=== PATIENT | female | born 1955 | race Caucasian/White ===

== ENCOUNTER 2021-09-15 15:41 | Emergency (ER) | payer MEDICARE, SELFPAY ==
[2021-09-15 15:56] VITALS: BP 143/90; PULSE 101; RESP 16; TEMP 35.9; O2SAT 97
--- NOTE | 2021-09-15 15:58 | ED.ANIMALBIT ---
HPI - Animal Bite General Chief Complaint: Animal Bite Stated Complaint: dog bite on hand and foot Time Seen by Provider: 09/15/21 15:55 Source: patient Mode of arrival: ambulatory Limitations: no limitations History of Present Illness HPI narrative: Ms. Herrera is a 66-year-old female patient presenting to the clinic today with complaints of a dog bite to her left foot and her right middle finger. She reports that her dog began having a seizure and bit down on her foot leaving 3 puncture wounds to the dorsal foot as well as a flap laceration to the volar mid third phalanx. Bleeding is controlled. This occurred approximately 2 PM this afternoon. She is up-to-date on her tetanus. Her dog is up-to-date on his immunizations. Related Data Allergies Allergy/AdvReac Type Severity Reaction Status Date / Time No Known Allergies Allergy Unknown Unverified 11/29/17 18:54 Review of Systems Review of Systems: Pertinent positives per HPI. Patient denies any fever, chills, rash, headache, visual changes, dizziness, cough, runny nose, sore throat, shortness of breath, chest pain, palpitations, nausea, vomiting, diarrhea, constipation, abdominal pain, or any urinary issues. PMFSH Comments At the time of my signature, I reviewed and agree with the nursing past medical, surgical, social, and family history. There is no relevant family history pertinent to the patient complaint. Exam Narrative: General: Well-developed, well nourished, in no apparent distress Head: Normocephalic, atraumatic. Cardio: Regular rate and rhythm, s1 and s2 normal, no murmur appreciated. Resp: Clear to auscultation bilaterally, no rhonchi, rales, wheezing or rubs. Integumentary: [place], warm, and dry, has 3 small puncture wounds to the dorsal left foot with the largest measuring approximately fourth of a centimeter. Has a flap laceration measuring 1.5 cm to the right fourth volar mid phalanx and a small puncture wound to the dorsal fourth mid phalanx Course Course Emergency Course: Portions of this record may have been created with voice recognition software. Level of Care: Express Care Visit Vital Signs Vital signs: Vital Signs Temperature 35.9 C L 09/15/21 15:56 Pulse Rate 101 H 09/15/21 15:56 Respiratory Rate 16 09/15/21 15:56 Blood Pressure 143/90 H 09/15/21 15:56 Pulse Oximetry 97 09/15/21 15:56 Temperature 35.9 C L 09/15/21 15:56 Pulse Rate 101 H 09/15/21 15:56 Respiratory Rate 16 09/15/21 15:56 Blood Pressure 143/90 H 09/15/21 15:56 Pulse Oximetry 97 09/15/21 15:56 Vital signs reviewed Procedures Laceration Laceration 1: Date: 09/15/21 Site: hand (Right fourth finger-mid phalanx) Side (If applicable): right Size (cm): 1.5 Description: flap Depth: simple, single layer Local Anesthetic: lidocaine 1% Amount of anesthesia used (mL): 0.5 Pre-repair: wound explored and irrigated ====== Skin Level ====== Skin layer closed with: nylon Size (cm): 4-0 Number of sutures: 1 Technique: simple, interrupted ====== Subcutaneous Layer ====== ====== Muscle Layer ====== ====== Tendon Layer ====== Dressing: Verbal consent obtained for laceration repair. Risk and benefits explained and patient voiced understanding. Area was cleansed with Dermaclens and was prepped and draped using sterile technique. A 4-0 suture on a p3 needle was used to place (1) interrupted sutures loosely bringing the wound edges together leaving area to drain -wound is well approximated. Patient tolerated procedure well. Sterile dressing applied. MDM - Animal Bite MDM Narrative Medical decision making narrative: At the time of visit patient is resting comfortably on the exam table. She has 3 small puncture wounds to the dorsal left foot as well as a flap laceration to the volar fourth finger with a puncture wound to the dorsal fourth finger mid ph
== END 2021-09-15 16:30 | disposition home or self-care (01) ==
PROVIDERS: Emergency Provider Nurse Practitioner Family
DX: S91.332A Puncture wound without foreign body, left foot, initial encounter (principal); S61.214A Laceration without foreign body of right ring finger without damage to nail, initial encounter; S61.234A Puncture wound without foreign body of right ring finger without damage to nail, initial encounter; W54.0XXA Bitten by dog, initial encounter
CPT/HCPCS: 12001; 99203; G0463

== ENCOUNTER 2024-06-21 08:37 | Outpatient (CLI) | payer MEDICARE, MEDICAID, SELFPAY ==
--- NOTE | ~2024-06-21 | MR_ITS ---
EXAMINATION: MR breast BI wo/w con INDICATION: Left breast lump, galactorrhea TECHNIQUE: Axial VIBRANT pre and dynamic post contrast, Sagittal VIBRANT post contrast, Axial T2 STIR ASSET COMPARISON: None CONTRAST: Prohance, 13 cc BREAST COMPOSITION: Heterogeneous fibroglandular tissue FINDINGS: RIGHT BREAST: There is moderate background parenchymal enhancement. There is extensive nonmass-like e nhancement corresponding to relatively morphologically normal fibroglandular tissue in the central ri ght breast. There is a mix of kinetic waveforms. No pathologically enlarged axillary or internal mamm mak lymph nodes are identified. LEFT BREAST: There is moderate background parenchymal enhancement. There is a 7.0 x 4.6 x 5.5 cm comp alyse mass in the central to slightly outer left breast, with 2 large cystic components a central irreg ular avidly enhancing mass. The enhancing irregular central masslike component measures approximately 3.2 x 2.0 x 2.3 cm. This portion is surrounded by anterior and posterior cystic components, which ar e both T1 and T2 hyperintense, which could indicate hemorrhagic or proteinaceous material. There is p robable contiguous extension of the mass beyond the margins of the cystic lesion into the superior le ft breast, with additional areas of somewhat bilobed irregular masslike enhancement measuring approxi mately 3.8 x 2.6 cm posterolaterally, and 3.0 x 2.3 cm more anteromedially/centrally (series 3 image 822 for example). No pathologically enlarged axillary or internal mammary lymph nodes are identified. IMPRESSION: Irregular enhancing mass in the central, slightly upper, slightly outer left breast measuring approx imately 3.2 x 2.0 x 2.3 cm. This is highly suspicious for malignancy. The lesion is surrounded by stevenson ewhat bilobed complex cystic lesion which is both T1 and T2 hyperintense, which could reflect hemorrh agic products or proteinaceous material. Probable direct extension of the aforementioned irregular enhancing mass into the superior left breas t, with additional irregular masslike enhancing areas measuring 3.8 x 2.6 cm and 3.0 x 2.3 cm in size respectively. These regions are also suspicious for additional neoplastic involvement. Please see de tails above. Suspicious enhancement kinetics centrally in the right breast. This is suspicious, despite relatively normal morphologic appearance of the fibroglandular tissue in this region. Bilateral diagnostic mammography and sonography is recommended to further assess both the morphologic findings, as well as to assess for bilateral biopsy targeting. BIRADS 5--Highly Suggestive of Malignancy--Appropriate Action Should be Taken Reviewed, dictated and finalized at location M. IMPRESSION: Irregular enhancing mass in the central, slightly upper, slightly outer left b reast measuring approximately 3.2 x 2.0 x 2.3 cm. This is highly suspicious for malignancy. The lesion is surrounded by somewhat bilobed complex cystic lesion which is both T1 and T2 hyperintense, which could reflect hemorrhagic products or proteinaceous material. Probable direct extension of the aforementioned irregular enhancing mass into t he superior left breast, with additional irregular masslike enhancing areas royer suring 3.8 x 2.6 cm and 3.0 x 2.3 cm in size respectively. These regions are al so suspicious for additional neoplastic involvement. Please see details above. Suspicious enhancement kinetics centrally in the right breast. This is suspicio us, despite relatively normal morphologic appearance of the fibroglandular tiss ue in this region. Bilateral diagnostic mammography and sonography is recommended to further asses s both the morphologic findings, as well as to assess for bilateral biopsy targ eting. BIRADS 5--Highly Suggestive of Malignancy--Appropriate Action Should be Taken
--- OUTSIDE RECORDS SUMMARY | 2024-06-21 09:17 | XMS_ITS | Referral Summary ---
Author Organization [facility] Address [address] [place] [address] Care Team Providers Care Loan Assistant Name Role Phone Raffi Jean MD Primary Care Provider [phone] Source Comments [facility],non-owned Affiliates and Associated Physician Practices is amultiple site organization consisting of ambulatory clinics and hospital sitesin [place], [place], [place] and [place]. This disclosure is being madepursuant to the Care Everywhere program and may not contain all information available regarding this patient. Last updated 17.[facility] Allergies No known active allergies Medications * Be aware that medications may not be up to date on this document. Alwaysverify current medications with the patient. Medication Sig Dispensed Refills Start Date End Date Status albuterol HFA (PROAIR HFA) 108 (90 BASE) MCG/ACT inhaler Inhale 2 Puffs by mouth every 4 hours as needed for Shortness of Breath, Wheezing or Cough 1 Inhaler 1 02/16/2016 Active ofzqhxrdo-yna-ew-ap ap (ROBITUSSIN FLU) 15-1-5-160 MG/5ML syrup Take 10 mL by mouth every 6 hours as needed for Congestion or Runny Nose 118 mL 02/16/2016 Active Social History Tobacco Use Types Packs/Day Years Used Date Smoking Tobacco: Every Day Cigarettes Sex and Gender Information Value Date Recorded Sex Assigned at Not on file Gender Identity Not on file Sexual Orientation Not on file Last Filed Vital Signs Vital Sign Reading Time Taken Comments Blood Pressure 110/66 02/16/2016 12:54 PM FLOOR SPECIALIST Pulse 84 02/16/2016 12:54 PM FLOOR SPECIALIST Temperature 36.7 C (98.1 F) 02/16/2016 12:54 PM FLOOR SPECIALIST Respiratory Rate 18 02/16/2016 12:54 PM FLOOR SPECIALIST Oxygen Saturation 97% 02/16/2016 12:54 PM FLOOR SPECIALIST Inhaled Oxygen Concentration - - Weight 56.7 kg (125 lb) 02/16/2016 12:54 PM FLOOR SPECIALIST Height 148.6 cm (4' 10.5 ) 02/16/2016 12:54 PM Carlos FORDE Body Mass Index 25.68 02/16/2016 12:54 PM FLOOR SPECIALIST Plan of Treatment Not on file Goals Goal Patient Goal Type Associated Problems Recent Progress Patient-Stated? Author Quit smoking / using tobacco Lifestyle No Bárbara Lo APRN-MITCH Care Teams Loan Assistant Relationship Specialty Start Date End Date Raffi Jean [place] [address] PCP - General Family Medicine 02/01/16
--- OUTSIDE RECORDS SUMMARY | 2024-06-21 09:17 | XMS_ITS | Patient Health Summary ---
Author Organization [facility] Address [address] [place] [address] Care Team Providers Care Airplane Dispatch Clerk Name Role Phone Raffi Jean MD Primary Care Provider [phone] Note from [facility],non-owned Affiliates and Associated Physician Practices is amultiple site organization consisting of ambulatory clinics and hospital sitesin [place] and [place]. This disclosure is being madepursuant to the Care Everywhere program and may not contain all information available regarding this patient. Last updated 17.[facility] Allergies No known active allergies Medications * Be aware that medications may not be up to date on this document. Alwaysverify current medications with the patient. * albuterol HFA (PROAIR HFA) 108 (90 BASE) MCG/ACT inhaler(Started 02/16/2016) Inhale 2 Puffs by mouth every 4 hours as needed for Shortness of Breath, Wheezing or Cough 1 refill remaining * wrunzelua-mir-hv-apap (ROBITUSSIN FLU) 15-1-5-160 MG/5ML syrup(Started 02/16/2016) Take 10 mL by mouth every 6 hours as needed for Congestion or Runny Nose Social History Tobacco Use Types Packs/Day Years Used Date Smoking Tobacco: Every Day Cigarettes Sex and Gender Information Value Date Recorded Sex Assigned at Not on file Gender Identity Not on file Sexual Orientation Not on file Last Filed Vital Signs Vital Sign Reading Time Taken Comments Blood Pressure 110/66 02/16/2016 12:54 PM REEL TENDER Pulse 84 02/16/2016 12:54 PM REEL TENDER Temperature 36.7 C (98.1 F) 02/16/2016 12:54 PM REEL TENDER Respiratory Rate 18 02/16/2016 12:54 PM REEL TENDER Oxygen Saturation 97% 02/16/2016 12:54 PM REEL TENDER Inhaled Oxygen Concentration - - Weight 56.7 kg (125 lb) 02/16/2016 12:54 PM REEL TENDER Height 148.6 cm (4' 10.5 ) 02/16/2016 12:54 PM Carlos FORDE Body Mass Index 25.68 02/16/2016 12:54 PM REEL TENDER Care Teams Airplane Dispatch Clerk Relationship Specialty Start Date End Date Raffi Jean MD [address] [place] [address] PCP - General Family Medicine 02/01/16
--- OUTSIDE RECORDS SUMMARY | 2024-06-21 09:17 | XMS_ITS | Clinical Summary ---
Author Organization [facility] Address [address] [place] [address] Care Team Providers Care Senior Telecommunications Consultant Name Role Phone Raffi Jean MD Primary Care Provider [phone] Source Comments [facility],non-owned Affiliates and Associated Physician Practices is amultiple site organization consisting of ambulatory clinics and hospital sitesin [place], [place], [place] and [place]. This disclosure is being madepursuant to the Care Everywhere program and may not contain all information available regarding this patient. Last updated 17.[facility] Allergies No known active allergies Medications * [...] or Cough 1 Inhaler 1 02/16/2016 Active kwnujwmvy-vfd-qf-ap ap (ROBITUSSIN FLU) 15-1-5-160 MG/5ML syrup Take [...] Comments Blood Pressure 110/66 02/16/2016 12:54 PM SERVICE WRITER ADVISOR Pulse 84 02/16/2016 12:54 PM SERVICE WRITER ADVISOR Temperature 36.7 C (98.1 F) 02/16/2016 12:54 PM SERVICE WRITER ADVISOR Respiratory Rate 18 02/16/2016 12:54 PM SERVICE WRITER ADVISOR Oxygen Saturation 97% 02/16/2016 12:54 PM SERVICE WRITER ADVISOR Inhaled Oxygen Concentration - - Weight 56.7 kg (125 lb) 02/16/2016 12:54 PM SERVICE WRITER ADVISOR Height 148.6 cm (4' 10.5 ) 02/16/2016 12:54 PM C Body Mass Index 25.68 02/16/2016 12:54 PM SERVICE WRITER ADVISOR Plan of Treatment Health Maintenance Due Date Last Done Comments BONE DENSITY TESTING 1955 COLOGUARD (AGES 45-75) - COL ON CA SCREENING 1956 COLON MONITORING 1956 COLONOSCOPY - COLON CA SCREENING 1956 CT COLONOGRAPHY - COLON CA SCREENING 1956 Colorectal Cancer Screening 1956 FIT - COLON CA SCREENING 1956 FLEX SIG - COLON CA SCREENING 1956 LIPID TESTING 1956 MAMMOGRAM 1956 HEPATITIS C SCREENING 02/10/1974 DTAP/TDAP/TD VACCINES (1 - Tdap) 02/14/1975 PNEUMOCOCCAL VACCINE 50+ (1 of 1 - PCV) 02/14/2006 ZOSTER VACCINE (1 of 2) 02/14/2006 COVID-19 VACCINE ( - 2023-2 5 season) 2023 INFLUENZA VACCINE (#1) 2023 DEPRESSION SCREENING 04/11/2024 Respiratory Syncytial Virus (RSV) Vaccine Pt: or over 60 yrs (1 - 1-dose 75+ series) 02/14/2031 HEPATITIS B VACCINE Aged Out No longe r eligible based on patient's age to complete this topic HIB VACCINE Aged Out No longer eligi ble based on patient's age to complete this topic HPV VACCINE Aged Out No longer eligi ble based on patient's age to complete this topic MENINGOCOCCAL (Group B) VACC INE SHARED DECISION-MAKING Aged Out No longer eligibl e based on patient's age to complete this topic MENINGOCOCCAL GROUPS A/C/Y/W VACCINE Aged Out No longer eligible b ased on patient's age to complete this topic Goals Goal Patient Goal Type Associated Problems Recent Progress Patient-Stated? Author Quit smoking / using tobacco Lifestyle No Bárbara Lo, PHYSICIAN UNDERWRITER-SAP BASIS CONSULTANT Care Teams Senior Telecommunications Consultant Relationship Specialty Start Date End Date Raffi Jean MD [address] [place] [address] PCP - General Family Medicine 02/01/16
== END 2024-06-21 08:38 | disposition home or self-care (01) ==
PROVIDERS: PCP Family Medicine; Visit Provider Family Medicine
DX: R92.8 Other abnormal and inconclusive findings on diagnostic imaging of breast (principal); N63.21 Unspecified lump in the left breast, upper outer quadrant; N64.59 Other signs and symptoms in breast; N64.3 Galactorrhea not associated with childbirth
CPT/HCPCS: 77049; A9579; C8908

== ENCOUNTER 2024-07-03 10:41 | Outpatient (CLI) | payer MEDICARE, MEDICAID, SELFPAY ==
--- NOTE | ~2024-07-03 | MMUS_ITS ---
EXAMINATION: MM diagnostic cadence BI w dalila, US breast BI limited HISTORY: 69-year-old woman presents with spontaneous left-sided bladder nipple discharge and a left-s ided breast mass for diagnostic bilateral evaluation TECHNIQUE: Craniocaudal and mediolateral oblique 3-D tomosynthesis images were obtained and synthetic 2-D images were generated. CAD analysis was submitted and interpreted. Of note, the compression force on the left breast was 0, secondary to patient intolerance. High resolution limited bilateral breast ultrasound was performed. COMPARISON: Reference is made to MRI examination dated 06/21/2024 which demonstrated a 7 x 4.6 x 5.5 c m cystic mass (presumed to be a hematoma from prior trauma) as well as an adjacent abnormal focus wit hin the superior medial left breast, in addition to suspicious enhancement kinetics centrally within the right breast. BREAST PARENCHYMAL COMPOSITION:Dense: The breasts are heterogeneously dense, which may obscure small masses. FINDINGS: MAMMOGRAPHIC FINDINGS: Subtle nodular densities are identified within the upper outer quadrant of the posterior right breast , for which further evaluation with ultrasound will be performed. Redemonstration of a smoothly marginated left breast mass measuring 7.3 cm in greatest dimension, cor responding to patient's MRI abnormality, presumably from prior trauma. ULTRASOUND: At the 10:00 position of the right breast approximately 9 cm from the nipple is a well-circumscribed reniform shaped focus consistent with an intramammary lymph node. This focus is not pathologically en larged or morphologically suspicious. This abnormality does not correspond to the indeterminate (plateau-type) contrast enhancement on MRI, seen within the central right breast. At the 12:00 position of the right breast approximately 4 cm from the nipple is a well-circumscribed anechoic avascular focus measuring 5 x 4.8 x 1.8 mm, likely a simple cyst for which no further follow -up is needed. No sonographic abnormality is identified within the region of MRI concern within the right breast. At the 12:00 position of the left breast approximately 2 cm from the nipple is a multilobulated highl y vascular focus of mixed echogenicity measuring 10.7 x 16 x 6 mm. This focus corresponds to the abno rmality seen anterior, superior and slightly medial to the large (presumed) hematoma within the left breast, and is suitable for biopsy. Morphologically benign nonpathologically enlarged lymph node within the left axilla. Redemonstration of the (presumed) hematoma within the left breast which demonstrates mixed echogenici ty. The anterior component is completely anechoic while the deeper component demonstrates isoechoic and h yperechoic components, demonstrating scattered vascularity. IMPRESSION: No mammographic/tomographic or sonographic abnormality is detected within the right breast to corresp ond to the indeterminate enhancement centrally within the right breast. Redemonstration of the large (presumed) hematoma within the left breast complicating malignancy detec tion, for which percutaneous evacuation may be performed. The deep component of this collection demonstrates solid features with scattered vascularity for whic h focused ultrasound guided biopsy may be performed, following evacuation of the anterior fluid compo nent, if needed. A 16 mm multilobulated vascular focus of mixed echogenicity within the left breast, also suitable for percutaneous biopsy, if needed. Follow-up with patient's breast surgeon for additional clinical evaluation, disposition and plan. BI-RADS category 4, suspicious findings. Thank you for the opportunity to assist in the care of your patient. For questions or concerns regarding this interpretation, please reach out to me directly at . Reviewed, dictated and finalized at location A. IMPRESSION: No mammographic/tomographic or sonographic abnormality is detected within the r ight breast to correspond to the indeterminate enhancement centrally within the right breast. Redemonstration of the large (presumed) hematoma within the left breast complic ating malignancy detection, for which percutaneous evacuation may be performed. The deep component of this collection demonstrates solid features with scattere d vascularity for which focused ultrasound guided biopsy may be performed, foll owing evacuation of the anterior fluid component, if needed. A 16 mm multilobulated vascular focus of mixed echogenicity within the left lukasz ast, also suitable for percutaneous biopsy, if needed. Follow-up with patient's breast surgeon for additional clinical evaluation, dis position and plan. BI-RADS category 4, suspicious findings.
--- OUTSIDE RECORDS SUMMARY | 2024-07-03 12:36 | XMS_ITS | Clinical Summary ---
Author Organization [facility] Address [address] [place] [address] Care Team Providers Care Rotary Cutter Operator Name Role Phone Raffi Jean MD Primary Care Provider [phone] Source Comments [facility],non-owned Affiliates and Associated Physician Practices is amultiple site organization consisting of ambulatory clinics and hospital sitesin [place], [place], [place] and [place]. This disclosure is being madepursuant to the Care Everywhere program and may not contain all information available regarding this patient. Last updated 17.[facility] Allergies No known active allergies Medications * [...] or Cough 1 Inhaler 1 02/16/2016 Active cphkiftlz-nbc-tv-ap ap (ROBITUSSIN FLU) 15-1-5-160 MG/5ML syrup Take [...] Comments Blood Pressure 110/66 02/16/2016 12:54 PM LOADING CHECKER Pulse 84 02/16/2016 12:54 PM LOADING CHECKER Temperature 36.7 C (98.1 F) 02/16/2016 12:54 PM LOADING CHECKER Respiratory Rate 18 02/16/2016 12:54 PM LOADING CHECKER Oxygen Saturation 97% 02/16/2016 12:54 PM LOADING CHECKER Inhaled Oxygen Concentration - - Weight 56.7 kg (125 lb) 02/16/2016 12:54 PM LOADING CHECKER Height 148.6 cm (4' 10.5 ) 02/16/2016 12:54 PM C Body Mass Index 25.68 02/16/2016 12:54 PM LOADING CHECKER Plan of Treatment Health Maintenance Due Date [...] / using tobacco Lifestyle No Bárbara Lo, COPY ROOM TECHNICIAN-TRAFFIC SUPERINTENDENT Care Teams Rotary Cutter Operator Relationship Specialty Start Date End Date Raffi Jean MD [address] [place] [address] PCP - General Family Medicine 02/01/16
== END 2024-07-03 10:42 | disposition home or self-care (01) ==
PROVIDERS: PCP Family Medicine; Visit Provider Surgery
DX: R92.8 Other abnormal and inconclusive findings on diagnostic imaging of breast (principal); N63.20 Unspecified lump in the left breast, unspecified quadrant
CPT/HCPCS: 76642; 77062; 77066; G0279

== ENCOUNTER 2024-07-24 08:01 | Outpatient (CLI) | payer MEDICARE, SELFPAY ==
--- NOTE | ~2024-07-24 | MMUS_ITS ---
MM post biopsy diagnostic LT, US_BCALIMG_US, US breast biopsy LT w image EXAMINATION: US GUIDED NEEDLE BIOPSY WITH VACUUM ASSISTANCE DATE: 07/24/2024 11:25 CDT INDICATION: Left breast mass masses seen on prior examination with associated abnormal fluid. Ultras ound-guided core biopsy and aspiration is requested to evaluate for malignancy. BREAST PARENCHYMAL COMPOSITION: Not dense: There are scattered areas of fibroglandular density. TECHNIQUE AND FINDINGS: The risks and potential benefits of the procedure were discussed with the patient, and written inform ed consent was obtained. After sterile preparation of the left breast, 1% lidocaine was utilized for local anesthesia. 1% lidocaine with epinephrine was used for deep anesthesia. Initial biopsy performed on mass located at 12:00, 2 cm from the nipple. Subsequent aspiration of flu id was obtained from complex mixed solid and cystic mass involving a large area of the left breast. 3 0 cc of bloody fluid was obtained without complication. Subsequently biopsy was performed at this sit e for the solid components. 12:00, 2 cm from the nipple A 10G vacuum-assisted biopsy gun needle was advanced through to the outer edge of the region of interest from a superior approach utilizing sonographic guidance. A total of 4 tissue core samples were obtained through the lesion. An Inrad tissue marker clip was then placed at the biopsy site. Hemostasis was achieved. Large complex solid and cystic component of the bloody fluid. Subsequent ultrasound reported biopsy o f the solid components were performed. A 10G vacuum-assisted biopsy gun needle was advanced through t o the outer edge of the region of interest from a superior approach utilizing sonographic guidance. A total of 5 tissue core samples were obtained through the lesion. An Inrad tissue marker clip was t hen placed at the biopsy site. Hemostasis was achieved. The patient tolerated procedure well and there was no evidence of immediate complication. The patien t was given verbal instructions partly is from the department. Left breast mammograms to document ti ssue marker clip placement. The tissue samples were submitted to surgical pathology for histologic an alysis. IMPRESSION: 1. Successful ultrasound-guided fine-needle aspiration and vacuum-assisted biopsies of left breast m asses and abnormal fluid with post procedure mammogram for marker placement. Please refer to patholog y report for histologic analysis. Reviewed, dictated and finalized at location B. IMPRESSION: 1. Successful ultrasound-guided fine-needle aspiration and vacuum-assisted bio psies of left breast masses and abnormal fluid with post procedure mammogram fo r marker placement. Please refer to pathology report for histologic analysis. IMPRESSION: 1. Successful ultrasound-guided fine-needle aspiration and vacuum-assisted bio psies of left breast masses and abnormal fluid with post procedure mammogram fo r marker placement. Please refer to pathology report for histologic analysis.
--- NOTE | ~2024-07-24 | US_ITS ---
Please refer to ultrasound biopsy dated 07/24/2024 for details. Reviewed, dictated and finalized at location B.
--- OUTSIDE RECORDS SUMMARY | 2024-07-24 08:09 | XMS_ITS | Clinical Summary ---
Author Organization [facility] Address [address] [place] [address] Care Team Providers Care Back End Developer Name Role Phone Raffi Jean MD Primary Care Provider [phone] Source Comments [facility],non-owned Affiliates and Associated Physician Practices is amultiple site organization consisting of ambulatory clinics and hospital sitesin [place], [place], [place] and [place]. This disclosure is being madepursuant to the Care Everywhere program and may not contain all information available regarding this patient. Last updated 17.[facility] Allergies No known active allergies Medications * Be aware that medications may not be up to date on this document. Alwaysverify current medications with the patient. albuterol HFA (PROAIR HFA) 108 (90 BASE) MCG/ACT inhaler Inhale 2 Puffs by mouth every 4 hours as needed for Shortness of Breath, Wheezing or Cough 1 Inhaler 1 6 Active wyklufxri-dkr-f m-apap (ROBITUSSIN FLU) 15-1-5-160 MG/5ML syrup Take 10 mL by mouth every 6 hours as needed for Congestion or Runny Nose 118 mL 6 Active Social History Tobacco Use Types Packs/Day Years Used Date Smoking Tobacco: Every Day Cigarettes Comments Unknown Sex and Gender Information Value Date Recorded Sex Assigned at Not on file Legal Sex Female 9:57 AM CDT Gender Identity Not on file Sexual Orientation Not on file Last Filed Vital Signs Vital Sign Reading Time Taken Comments Blood Pressure 110/66 02/16/2016 12:54 PM ORCHID WORKER Pulse 84 02/16/2016 12:54 PM ORCHID WORKER Temperature 36.7 C (98.1 F) 02/16/2016 12:54 PM ORCHID WORKER Respiratory Rate 18 02/16/2016 12:54 PM ORCHID WORKER Oxygen Saturation 97% 02/16/2016 12:54 PM ORCHID WORKER Inhaled Oxygen Concentration - - Weight 56.7 kg (125 lb) 02/16/2016 12:54 PM ORCHID WORKER Height 148.6 cm (4' 10.5 ) 02/16/2016 12:[address] Body Mass Index 25.68 02/16/2016 12:54 PM ORCHID WORKER Plan of Treatment Health Maintenance Due Date [...] VACCINE ( - 2023-2 5 season) 2023 DEPRESSION SCREENING 04/11/2024 INFLUENZA VACCINE (Season Ended) 2024 Respiratory Syncytial Virus (RSV) Vaccine Pt: or [...] / using tobacco Lifestyle No Bárbara Lo APRN-LEATH[employer] ARTISAN Insurance Care Teams Back End Developer Relationship Specialty Start Date End Date Raffi Jean MD [address] [facility] [place] [address] PCP - General Family Medicine 02/01/16
== END 2024-07-24 08:02 | disposition home or self-care (01) ==
PROVIDERS: PCP Family Medicine; Visit Provider Surgery
DX: N63.23 Unspecified lump in the left breast, lower outer quadrant (principal); N64.89 Other specified disorders of breast; N64.52 Nipple discharge; N64.59 Other signs and symptoms in breast; R92.8 Other abnormal and inconclusive findings on diagnostic imaging of breast; Z17.0 Estrogen receptor positive status [ER+]
CPT/HCPCS: 19000; 19083; 19084; 76942; 77065; 87070; 87075; 87205; 88108; 88305; 88342; 88360; A4648

== ENCOUNTER 2024-07-25 17:56 | Emergency (ER) | payer MEDICARE, SELFPAY ==
--- OUTSIDE RECORDS SUMMARY | 2024-07-25 17:59 | XMS_ITS | Clinical Summary ---
Author Organization [facility] Address [address] [place] [address] Care Team Providers Care Manufacturing Assembler Name Role Phone Raffi Jean MD Primary Care Provider [phone] Source Comments [facility],non-owned Affiliates and Associated Physician Practices is amultiple site organization consisting of ambulatory clinics and hospital sitesin [place], [place], [place] and [place]. This disclosure is being madepursuant to the Care Everywhere program and may not contain all information available regarding this patient. Last updated 17.[facility] Allergies No known active allergies Medications * Be aware that medications may not be up to date on this document. Alwaysverify current medications with the patient. albuterol HFA (PROAIR HFA) 108 (90 BASE) MCG/ACT inhaler Inhale 2 Puffs by mouth every 4 hours as needed for Shortness of Breath, Wheezing or Cough 1 Inhaler 1 6 Active wpronjora-bsq-v m-apap (ROBITUSSIN FLU) 15-1-5-160 MG/5ML syrup Take [...] Comments Blood Pressure 110/66 02/16/2016 12:54 PM ROUSTABOUT PUSHER Pulse 84 02/16/2016 12:54 PM ROUSTABOUT PUSHER Temperature 36.7 C (98.1 F) 02/16/2016 12:54 PM ROUSTABOUT PUSHER Respiratory Rate 18 02/16/2016 12:54 PM ROUSTABOUT PUSHER Oxygen Saturation 97% 02/16/2016 12:54 PM ROUSTABOUT PUSHER Inhaled Oxygen Concentration - - Weight 56.7 kg (125 lb) 02/16/2016 12:54 PM ROUSTABOUT PUSHER Height 148.6 cm (4' 10.5 ) 02/16/2016 12:[address] Body Mass Index 25.68 02/16/2016 12:54 PM ROUSTABOUT PUSHER Plan of Treatment Health Maintenance Due Date [...] / using tobacco Lifestyle No Bárbara Lo APRN-BAG SEWER Insurance Care Teams Manufacturing Assembler Relationship Specialty Start Date End Date Raffi Jean MD [address] [facility] [place] [address] PCP - General Family Medicine 02/01/16
--- NOTE | 2024-07-25 18:08 | ED.SKABFB ---
HPI - Skin/Abscess/Foreign Bdy General Chief complaint: Skin/Abscess/Foreign Body Stated complaint: Bleeding biopsy sites Focused HPI: 69 year old female presents emergency department for bleeding to her left breast biopsy site. Patient had 2 biopsies performed of her left breast [facility]. She states she noticed bleeding occurred about an hour ago. She has bandages in place and was told to not remove these in 48 hours but is bleeding around the bandages. She is not anticoagulated. No other injuries or trauma. GENERAL: Well-appearing, well-nourished, and in no acute distress. HEAD: Normocephalic, atraumatic. CHEST: Clear to auscultation. ?No respiratory distress. Two biopsy sites to the left breast, 1 with a clean and intact bandage, the other bandage soaked with bright red blood HEART: Regular rate and rhythm.? NEURO: ?Alert and oriented x3. Patient screened in triage and initial orders placed.? ?Additional care and disposition to be based upon?diagnostic testing and treatment. Related Data Allergies Allergy/AdvReac Type Severity Reaction Status Date / Time No Known Allergies Allergy Unknown Verified 06/25/24 09:10 [facility] Past Medical History Medical History (Updated 07/18/24 @ 11:09 by Sahra Belcher MD) Left breast mass Social History Social History (Updated 06/25/24 @ 09:16 by Yessica Elizabeth CMA) Smoking status: Current every day smoker Tobacco type: cigarettes Second hand tobacco smoke exposure: No Alcohol intake: never Substance use: never Substance use type: does not use Do You Feel Safe in your Home?: Yes Lack of Transportation: No Lack of Food: Never True Current Housing: Decline to Answer Concerned About Future Housing: Decline to Answer Difficulty Paying Gas/Electric Bills: No Difficulty Paying for Meds: No Currently Unemployed: No Education: High School Diploma/GED Difficulty w/ Childcare or Family Care: No Living arrangements: with family Occupation/Education: retired Gender identity (if verbalized by the patient): Female Sexual Orientation (if Verbalized by the Patient): Straight or Heterosexual Spiritual care concerns: No Agree to blood products: Yes Discharge Plan Discharge Patient Language: Swedish Prescriptions: No Action albuterol sulfate 90 mcg/actuation HFA aerosol inhaler 1 inh inhalation Q4H PRN (Reason: shortness of breath or wheezing) Qty: 8.5 0RF lorazepam 0.5 mg tablet 0.5 mg PO DAILY PRN (Reason: medical procedure/testing) Qty: 5 0RF Rx Instructions: Take 30 minutes before scheduled testing. Follow-up/Referrals: Luana Mac MD [Primary Care Provider] -
[2024-07-25 18:23] VITALS: BP 120/84; PULSE 82; RESP 16; TEMP 36.6; O2SAT 100
--- NOTE | 2024-07-25 19:30 | PC.NURSE ---
Assumed care of pt after receiving bedside report from CHRISTIANA Suresh. @ [phone]
--- NOTE | 2024-07-25 19:37 | ED.GENADULT ---
HPI - General Adult General Chief complaint: Skin/Abscess/Foreign Body Stated complaint: Bleeding biopsy sites Time Seen by Provider: 07/25/24 19:03 History of Present Illness HPI narrative: Patient is a 69-year-old female who presents to the emergency department this evening complaining of bleeding from her left breast. Patient had a breast biopsy yesterday performed by Dr. Belcher yesterday and patient states that after the biopsy she had a dressing placed and the and a binder around her breast which she was informed that she needs to keep for 24 hours to prevent bleeding. Patient states that once the 24 hour kenton finished she took the binder out and she was feeling great so she started doing some house work including laundry and dishes and then noticed she started bleeding from the lower left breast incision. Patient states that since the office is closed she did not know what else to do so she decided to come to the emergency department for full evaluation. Denies any additional symptoms or concerns that side. Related Data Allergies Allergy/AdvReac Type Severity Reaction Status Date / Time No Known Allergies Allergy Unknown Verified 06/25/24 09:10 Review of Systems Review of Systems: All systems are reviewed and are negative unless stated otherwise in the HPI. [facility] Past Medical History Medical History Left breast mass Social History Social History Smoking status: Current every day smoker Tobacco type: cigarettes Second hand tobacco smoke exposure: No Alcohol intake: never Substance use: never Substance use type: does not use Do You Feel Safe in your Home?: Yes Lack of Transportation: No Lack of Food: Never True Current Housing: Decline to Answer Concerned About Future Housing: Decline to Answer Difficulty Paying Gas/Electric Bills: No Difficulty Paying for Meds: No Currently Unemployed: No Education: High School Diploma/GED Difficulty w/ Childcare or Family Care: No Living arrangements: with family Occupation/Education: retired Gender identity (if verbalized by the patient): Female Sexual Orientation (if Verbalized by the Patient): Straight or Heterosexual Spiritual care concerns: No Agree to blood products: Yes Exam Narrative: General: Alert, awake, afebrile, in no acute distress. HEENT: PERRL, no rhinorrhea, no post nasal drip, oropharynx clear. Neck: Trachea midline, no JVD, no lymphadenopathy. Cardiovascular: Regular rate and rhythm, no murmurs, rubs or gallops, no peripheral edema. Breast: Hematoma bleeding consistent with old clotted blood noted from lower left breast incision site. Upper incision site dressing is clean and dry. Respiratory: Clear to auscultation bilaterally, no tachypnea, no wheezing, no rhonchi, no rubs, no respiratory distress. Abdomen: Soft, nontender, nondistended, no rebound, no guarding, no peritoneal signs. Musculoskeletal: No joint swelling or deformity, normal muscle tone. Skin: No rashes or petechia, no signs of infection. Psychiatric: Alert and oriented, normal behavior and judgment for situation. Neurological: Alert and oriented to person, place, and time. Follows all commands. No focal deficits, speech is clear and fluent. Course Vital Signs Vital signs: Vital Signs Temperature 97.9 F 07/25/24 18:23 Pulse Rate 82 07/25/24 18:23 Respiratory Rate 16 07/25/24 18:23 Blood Pressure 120/84 07/25/24 18:23 Pulse Oximetry 100 07/25/24 18:23 Oxygen Delivery Room Air 07/25/24 18:23 Temperature 97.9 F 07/25/24 18:23 Pulse Rate 82 07/25/24 18:23 Respiratory Rate 16 07/25/24 18:23 Blood Pressure 120/84 07/25/24 18:23 Pulse Oximetry 100 07/25/24 18:23 Oxygen Delivery Room Air 07/25/24 18:23 Medical Decision Making MDM Narrative Medical decision making narrative: The patient was evaluated by myself in the emergency department. History is obtained from patient who is an independent historian and physical exam was performed. External medical records were reviewed at this time. Case was discussed with the patient's breast surgeon Dr. Belcher at 1945 point informed me that it was her radiologist who performed the biopsy yesterday, she also informed me that the patient had a very large hematoma to her left breast which she sustained a month ago after sustaining a blunt trauma to her left breast. The radiologist was only able to evacuate some of the hematoma but not all of it which explains the patient's bleeding. I evacuated as much of the hematoma as a possible and pressure dressing was applied per surgeon's recommendation. Differential diagnosis considerations include hematoma, infection, wound dehiscence. Comorbidities impacting this visit include recent breast biopsy. I have evaluated and discussed social determinants of health with the patient that could potentially impact subsequent diagnosis and treatment plans. On repeat assessment of the patient, reevaluation revealed that the patient is doing well and is in no acute distress. Patient symptoms have improved since she arrived to our emergency department. Repeat vital signs were all reviewed and noted to be stable. Differential diagnosis and treatment plan were discussed with the patient at bedside. Patient agrees with discussion and after shared medical decision making agrees with discharge. All questions were answered to the patient's satisfaction. Patient will follow up with her breast surgeon in 3-5 days. Patient was provided with strict return precautions and instructed to return to the emergency department if any new or worsening symptoms develop. The patient was discharged in stable condition. Vital Signs Vital Signs: Vital Signs Temperature 97.9 F 07/25/24 18:23 Pulse Rate 82 07/25/24 18:23 Respiratory Rate 16 07/25/24 18:23 Blood Pressure 120/84 07/25/24 18:23 Pulse Oximetry 100 07/25/24 18:23 Oxygen Delivery Room Air 07/25/24 18:23 Temperature 97.9 F 07/25/24 18:23 Pulse Rate 82 07/25/24 18:23 Respiratory Rate 16 07/25/24 18:23 Blood Pressure 120/84 07/25/24 18:23 Pulse Oximetry 100 07/25/24 18:23 Oxygen Delivery Room Air 07/25/24 18:23 Discharge Plan Discharge Clinical Impression: Breast hematoma Patient Disposition: Home Condition: Improved Instructions: Antibiotic Form, Hematoma (ED) Additional Instructions: Please follow-up with your breast surgeon within the next 3-5 days. Return emergency department for any new or worsening symptoms develop. Patient Language: Luxembourgish Prescriptions: No Action albuterol sulfate 90 mcg/actuation HFA aerosol inhaler 1 inh inhalation Q4H PRN (Reason: shortness of breath or wheezing) Qty: 8.5 0RF lorazepam 0.5 mg tablet 0.5 mg PO DAILY PRN (Reason: medical procedure/testing) Qty: 5 0RF Rx Instructions: Take 30 minutes before scheduled testing. Follow-up/Referrals: Luana Mac MD [Primary Care Provider] - Sahra Belcher MD [Physician] - 3 Days Time of Disposition: 20:14
--- OUTSIDE RECORDS SUMMARY | 2024-07-25 19:57 | XMS_ITS | Clinical Summary ---
Author Organization [facility] Address [address] [place] [address] Care Team Providers Care Steward/Stewardess Second Class Name Role Phone Raffi Jean MD Primary Care Provider [phone] Source Comments [facility],non-owned Affiliates and Associated Physician Practices is amultiple site organization consisting of ambulatory clinics and hospital sitesin [place], [place], [place] and [place]. This disclosure is being madepursuant to the Care Everywhere program and may not contain all information available regarding this patient. Last updated 17.[facility] Allergies No known active allergies Medications * Be aware that medications may not be up to date on this document. Alwaysverify current medications with the patient. albuterol HFA (PROAIR HFA) 108 (90 BASE) MCG/ACT inhaler Inhale 2 Puffs by mouth every 4 hours as needed for Shortness of Breath, Wheezing or Cough 1 Inhaler 1 6 Active nzomhcjiy-mhp-o m-apap (ROBITUSSIN FLU) 15-1-5-160 MG/5ML syrup Take [...] Comments Blood Pressure 110/66 02/16/2016 12:54 PM THERMOFORMING OPERATOR Pulse 84 02/16/2016 12:54 PM THERMOFORMING OPERATOR Temperature 36.7 C (98.1 F) 02/16/2016 12:54 PM THERMOFORMING OPERATOR Respiratory Rate 18 02/16/2016 12:54 PM THERMOFORMING OPERATOR Oxygen Saturation 97% 02/16/2016 12:54 PM THERMOFORMING OPERATOR Inhaled Oxygen Concentration - - Weight 56.7 kg (125 lb) 02/16/2016 12:54 PM THERMOFORMING OPERATOR Height 148.6 cm (4' 10.5 ) 02/16/2016 12:[address] Body Mass Index 25.68 02/16/2016 12:54 PM THERMOFORMING OPERATOR Plan of Treatment Health Maintenance Due Date [...] / using tobacco Lifestyle No Bárbara Lo APRN-PRINCIPAL LIBRARIAN Insurance Care Teams Steward/Stewardess Second Class Relationship Specialty Start Date End Date Raffi Jean MD [address] [facility] [address] PCP - General Family Medicine 02/01/16
[2024-07-25 20:55] VITALS: BP 124/80; PULSE 76; RESP 19; O2SAT 99
== END 2024-07-25 20:55 | disposition home or self-care (01) ==
PROVIDERS: Emergency Provider Emergency Medicine; PCP Family Medicine
DX: L76.32 Postprocedural hematoma of skin and subcutaneous tissue following other procedure (principal); F17.210 Nicotine dependence, cigarettes, uncomplicated
CPT/HCPCS: 99282

== ENCOUNTER 2024-07-26 16:01 | Observation (INO) | payer MEDICARE, SELFPAY ==
[2024-07-26] VITALS (11 sets, daily range): BP systolic 116–140; BP diastolic 55–79; PULSE 75–101; RESP 13–21; TEMP 36.3–36.8; O2SAT 91–100; BMI 26.4
--- OUTSIDE RECORDS SUMMARY | 2024-07-26 12:27 | XMS_ITS | Clinical Summary ---
Author Organization [facility] Address [address] [place] [address] Care Team Providers Care Jump Iron Machine Presser Name Role Phone Raffi Jean MD Primary Care Provider [phone] Source Comments [facility],non-owned Affiliates and Associated Physician Practices is amultiple site organization consisting of ambulatory clinics and hospital sitesin [place], [place], [place]. This disclosure is being madepursuant to the Care Everywhere program and may not contain all information available regarding this patient. Last updated 17.[facility] Allergies No known active allergies Medications * Be aware that medications may not be up to date on this document. Alwaysverify current medications with the patient. albuterol HFA (PROAIR HFA) 108 (90 BASE) MCG/ACT inhaler Inhale 2 Puffs by mouth every 4 hours as needed for Shortness of Breath, Wheezing or Cough 1 Inhaler 1 6 Active bytyubgfr-lpp-g m-apap (ROBITUSSIN FLU) 15-1-5-160 MG/5ML syrup Take [...] Comments Blood Pressure 110/66 02/16/2016 12:54 PM SUPERVISOR CLAM BED Pulse 84 02/16/2016 12:54 PM SUPERVISOR CLAM BED Temperature 36.7 C (98.1 F) 02/16/2016 12:54 PM SUPERVISOR CLAM BED Respiratory Rate 18 02/16/2016 12:54 PM SUPERVISOR CLAM BED Oxygen Saturation 97% 02/16/2016 12:54 PM SUPERVISOR CLAM BED Inhaled Oxygen Concentration - - Weight 56.7 kg (125 lb) 02/16/2016 12:54 PM SUPERVISOR CLAM BED Height 148.6 cm (4' 10.5 ) 02/16/2016 12:[address] Body Mass Index 25.68 02/16/2016 12:54 PM SUPERVISOR CLAM BED Plan of Treatment Health Maintenance Due Date [...] / using tobacco Lifestyle No Bárbara Lo APRN-DOUBLE CUT SAWYER Insurance Care Teams Jump Iron Machine Presser Relationship Specialty Start Date End Date Raffi Jean MD [address] [facility] [place] [address] PCP - General Family Medicine 02/01/16
[2024-07-26] MEDS: LACTATED RINGERS 1,000 ML 30 ML IV CONT ×2 (13:00→15:56)
[2024-07-26] MEDS: ACETAMINOPHEN 500 MG TABLET 1000 MG PO (13:00)
--- NOTE | 2024-07-26 13:47 | ECG_ITS ---
Test Date: 2024-07-26 14:09:14 Measurements Intervals Normanna Rate: 93 P: 46 TX: 195 QRS: -51 QRSD: 76 T: 31 QT: 337 QTc: 420 Interpretive Statements SINUS RHYTHM LOW QRS VOLTAGE IN PRECORDIAL LEADS LEFT ANTERIOR FASCICULAR BLOCK ANTEROSEPTAL INFARCT, AGE INDETERMINATE CONSIDER INFERIOR INFARCT, AGE INDETERMINATE ABNORMAL ECG No previous ECG available for comparison Electronically Signed On 07-26-2024 14:12:20 CDT by Tyler Jackson D.O.
--- NOTE | 2024-07-26 13:51 | WPDHPUPDATE1 ---
History and Physical Update Update Date/Time: 07/26/24 13:51 - left breast incision and drainage of hematoma and bleeding control, possible excision of left breast mass. History and Physical has been reviewed, including an updated exam of the patient. There are NO changes in the patient's condition. Risks, benefits, and alternatives have been discussed and questions answered. Patient agrees to proceed with procedure.
--- NOTE | 2024-07-26 14:11 | P.PNAN_ITS ---
Anes - Initial Pre Proc Eval Procedure: Operation Date: 07/26/24 14:30 Proposed Procedures p Incision and Drainage of Left Breast Hematoma to Control Bleeding, Possible Excision Left Breast Mass - Sahra Belcher MD Date/Time: 07/26/24 14:11 Surgeon: Sahra Belcher MD Pre Op Diagnosis: left breast mass Patient Data Age: 69 Gender: F Height: 1.49 m Weight: 58.3 kg Last Vital Signs Temp 36.6 C 07/26/24 12:55 Pulse 101 H 07/26/24 12:55 Resp 16 07/26/24 12:55 BP 119/78 07/26/24 12:55 Pulse Ox 98 07/26/24 12:55 O2 Del Method Autopap 07/26/24 12:55 Allergies Allergy/AdvReac Type Severity Reaction Status Date / Time No Known Allergies Allergy Unknown Verified 07/26/24 14:07 Home Medications ?Medication ?Instructions ?Recorded ?Confirmed ?Type albuterol sulfate 90 mcg/actuation 1 inh inhalation Q4H PRN shortness 04/30/22 07/26/24 Rx aerosol inhaler of breath or wheezing #8.5 grams lorazepam 0.5 mg tablet 0.5 mg PO DAILY PRN medical 06/04/24 07/26/24 Rx procedure/testing #5 tabs Patient hx anesthesia problems: none Family hx anesthesia problems: none Results Review: All pre-operative results and documents have been reviewed as part of the pre- operative evaluation. [facility] Past Medical History Medical History (Updated 07/26/24 @ 14:12 by Brandan Brasher MD) Smoker Anxiety Left breast mass Surgical History Surgical History (Updated 07/26/24 @ 14:12 by Brandan Brasher MD) S/P breast biopsy Social History Social History Smoking packs per day: 1 Smoking cigarettes per day: 20.0 Years smoked: 47 Smoking pack-years: 47.00 Smoking status: Current every day smoker Tobacco type: cigarettes Second hand tobacco smoke exposure: No Alcohol intake: never Substance use: never Substance use type: does not use Do You Feel Safe in your Home?: Yes Lack of Transportation: No Lack of Food: Never True Current Housing: Decline to Answer Concerned About Future Housing: Decline to Answer Difficulty Paying Gas/Electric Bills: No Difficulty Paying for Meds: No Currently Unemployed: No Education: High School Diploma/GED Difficulty w/ Childcare or Family Care: No Living arrangements: with family Occupation/Education: retired Gender identity (if verbalized by the patient): Female Sexual Orientation (if Verbalized by the Patient): Straight or Heterosexual Spiritual care concerns: No Agree to blood products: Yes Anes - Eval Final PreProcedure Day of Procedure 07/26/24 14:11 Patient weight: overweight Heart: regular rate and rhythm Lungs: clear to auscultation Airway: Mallampati scale class II Neurological: alert and oriented Last oral intake: 6 hours ASA classification: III Emergent: yes Anesthetic plan: proceed Anesthesia type and monitoring: general ETT and standard monitoring Results Review: All pre-operative results and documents have been reviewed as part of the pre- operative evaluation. Informed Consent: The patient's anesthetic plan and its attendant risks and benefits were discussed with the patient/family/POA. Questions were solicited and answers provided to the satisfaction of the patient/family/POA.
[2024-07-26] MEDS: ONDANSETRON INJ 4 MG/2 ML VIAL IV PUSH ×2 (14:26→17:16)
[2024-07-26] MEDS: FAMOTIDINE 20 MG/2 ML VIAL IV PUSH (14:27)
[2024-07-26] MEDS: ceFAZolin 2 GM/D5W 50 ML 2 GM/50 ML BAG IVPB (14:44)
[2024-07-26] MEDS: BUPivacaine HCL 0.25% PF 10 ML VIAL INFILTRATE (15:03)
[2024-07-26] MEDS: CELLULOSE OXIDIZED 2 x 14 INCH 1 PKT XX (15:04)
--- NOTE | 2024-07-26 16:15 | P.OP_ITS ---
Procedure Note - Detailed Date of Procedure 07/26/24 Pre-op Diagnosis left breast mass, post-procedure bleeding after needle biopsy Post-op Diagnosis Same Procedure Performed Incision and drainage of left breast hematoma, wound washout and hemostasis Surgeon Sahra Belcher MD Anesthesia General Indications 69-year-old female who was evaluated previously for a left breast mass who underwent a core needle biopsy by Radiology 2 days ago and presented to clinic today with significant ongoing bleeding. Patient was seen in the ER last evening for bleeding were of large volume of old appearing blood was evacuated by the ER physician. Today in the office she was noted to have significant ongoing bleeding as well and she was recommended to go to the OR for evacuation of the hematoma and hemostasis. Findings Friable mass with oozing in 2 different areas, excellent hemostasis was achieved after Surgicel and Surgiflo as well as pressure or held for 15 minutes in the OR. Description of Procedure Patient was identified in the preoperative holding area brought to the operating room suite. She was laid supine in the OR table sequential compression devices were applied. General endotracheal anesthesia was induced without difficulty. The left chest area was prepped and draped in a sterile fashion. A small incision was made along the inframammary fold and dissection was carried down through the subcutaneous tissue until the hematoma cavity was encountered. A large volume of clots and hematoma was evacuated. The friable mass was identified centrally in the subareolar plane and there was 2 areas of ongoing oozing. I initially attempted cautery to this area but due to the friability of the tissue hemostasis was not achieved. Next I proceeded to pack the area with Surgicel and hold pressure for 15 minutes. After the 15 minutes of pressure I inspected the area and there was no ongoing bleeding at this point. The whole cavity was irrigated with copious amount of saline and no further source of bleeding was identified. Surgiflo was then used and injected into the cavity. The deep dermal layer was then closed with interrupted 3-0 Vicryl, followed by 4-0 Monocryl in a subcuticular fashion for the skin. Steri-Strips were applied along the skin followed by a pressure dressing and Charles wrap. Patient was then awoken from anesthesia taken to the recovery area in stable condition. [place], instruments, sponge counts were correct as reported by the operating room staff. Patient tolerated the procedure well with no immediate complications. Estimated Blood Loss 40 Pathology None sent Complications No immediate complications Condition Stable Disposition PACU [facility] Billing Surgery - Charge Forward: Surgery Billing
[2024-07-26] MEDS: fentaNYL CITRATE INJ (*CRX) 100 MCG/2 ML VIAL 25 MCG IV PUSH ×2 (16:18→16:57)
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
[2024-07-26 16:38] LABS: Hematocrit 24.5 % (37.0-47.0); Hemoglobin 7.7 g/dL (12.0-15.0); Mean Corpuscular HGB Conc 31.4 g/dl (32-36); Mean Corpuscular Hemoglobin 31.2 pg (26-34); Mean Corpuscular Volume 99.2 fl (80-100); Mean Platelet Volume 8.8 fl (7.4-10.4); Platelet Count Result 109 k/mm3 (150-375); Red Blood Count 2.47 M/mm3 (4.2-5.4); Red Cell Distribution Width 13.9 % (11.5-14.5); White Blood Count 5.9 K/mm3 (4.5-10.0)
[2024-07-26 16:50] LABS: INR 1.4; Prothrombin Time 17.5 Seconds (11.1-14.7)
--- NOTE | 2024-07-26 17:23 | SUR.PHASEI ---
1634 JOSE WALLS HERE TO SEE PT. 1721 JOSE WALLS CALLED TO REPORT LAB RESULTS; AWAITING A CALL BACK FROM HER.
--- NOTE | 2024-07-26 17:40 | ADMGEN ---
This patient, Bonnie Jones, was admitted to -. Patient/family oriented to hospital policies and general routines including ID bracelet, bed and alarms, visiting hours, pain management, procedures, bathroom and other care routines, personal items, smoking policy, room service/diet, and visiting hours. Information on how to activate the Rapid Response Team has been discussed. Patient/Family are encouraged to report perceived risks to care and to ask questions if they do not understand what they are told or what they should do.
--- NOTE | 2024-07-26 17:40 | SUR.PHASEI ---
JOSE CASTORENA AWARE OF PT/INR, CBC RESULTS.
[2024-07-26 18:33] LABS: Anion Gap 4 mmol/L (4-12); Blood Urea Nitrogen 24 mg/dL (7-17); Calcium 10.9 mg/dL (8.4-10.2); Carbon Dioxide 24 mmol/L (22-30); Chloride 108 mmol/L (98-107); Estimated Glomerular Filt Rate > 60; Glucose 150 mg/dL (65-110); Potassium 4.3 mmol/L (3.4-5.0); Sodium 136 mmol/L (137-145)
[2024-07-26] MEDS: LACTATED RINGERS 1,000 ML 100 ML IV CONT (18:49)
[2024-07-26 20:20] LABS: Hematocrit 38.6 % (37.0-47.0); Hemoglobin 12.7 g/dL (12.0-15.0); Mean Corpuscular HGB Conc 32.9 g/dl (32-36); Mean Corpuscular Hemoglobin 31.2 pg (26-34); Mean Corpuscular Volume 94.8 fl (80-100); Mean Platelet Volume 8.9 fl (7.4-10.4); Platelet Count Result 186 k/mm3 (150-375); Red Blood Count 4.07 M/mm3 (4.2-5.4); Red Cell Distribution Width 13.8 % (11.5-14.5); White Blood Count 10.3 K/mm3 (4.5-10.0)
[2024-07-26 20:29] LABS: Anion Gap 6 mmol/L (4-12); Blood Urea Nitrogen 24 mg/dL (7-17); Calcium 11.2 mg/dL (8.4-10.2); Carbon Dioxide 24 mmol/L (22-30); Chloride 106 mmol/L (98-107); Estimated Glomerular Filt Rate > 60; Glucose 147 mg/dL (65-110); Magnesium 1.9 mg/dL (1.6-2.3); Potassium 4.5 mmol/L (3.4-5.0); Sodium 136 mmol/L (137-145)
[2024-07-26 20:31] LABS: Prothrombin Time 13.8 Seconds (11.1-14.7)
[2024-07-26 20:32] LABS: Fibrinogen 463 mg/dl (215-510); Partial Thromboplastin Time 28.7 Seconds (22.3-36.8)
[2024-07-26] MEDS: ACETAMINOPHEN 500 MG TABLET PO (21:23)
[2024-07-27 00:25] VITALS: BP 103/45; PULSE 83; RESP 18; TEMP 36.4; O2SAT 95
[2024-07-27] MEDS: IPRATROPIUM 0.5 MG/ALBUTEROL SULFATE 2.5 MG AMPUL.NEB 3 ML INHALATION ×2 (02:40→08:18)
[2024-07-27 02:42] VITALS: PULSE 89; RESP 20
[2024-07-27 02:52] VITALS: PULSE 90; RESP 20
[2024-07-27 05:54] LABS: Bilirubin,Total 0.8 mg/dL (0.2-1.3); Calcium 10.6 mg/dL (8.4-10.2); Chloride 108 mmol/L (98-107); Estimated Glomerular Filt Rate > 60; Glucose 102 mg/dL (65-110)
[2024-07-27 05:55] LABS: Alanine Aminotransferase 17 U/L (6-35); Anion Gap 6 mmol/L (4-12); Blood Urea Nitrogen 20 mg/dL (7-17); Carbon Dioxide 22 mmol/L (22-30); Sodium 136 mmol/L (137-145)
[2024-07-27 06:03] LABS: Albumin Level 3.2 g/dL (3.5-5.1); Alkaline Phosphatase 121 U/L (38-126); Aspartate Amino Transferase 19 U/L (14-36); Potassium 4.1 mmol/L (3.4-5.0)
[2024-07-27 06:42] VITALS: BP 134/80; PULSE 86; RESP 16; TEMP 36.5; O2SAT 94
[2024-07-27 06:42] LABS: Hematocrit 35.6 % (37.0-47.0); Hemoglobin 11.7 g/dL (12.0-15.0); Mean Corpuscular HGB Conc 32.9 g/dl (32-36); Mean Corpuscular Hemoglobin 31.4 pg (26-34); Mean Corpuscular Volume 95.4 fl (80-100); Platelet Count Result 179 k/mm3 (150-375); Red Blood Count 3.73 M/mm3 (4.2-5.4); Red Cell Distribution Width 13.9 % (11.5-14.5); White Blood Count 9.4 K/mm3 (4.5-10.0)
--- NOTE | 2024-07-27 07:56 | PM.IMPN ---
Progress Note: A&P Assessment and Plan (1) Hematoma of left breast: Code(s): N64.89 - Other specified disorders of breast Status: Acute Assessment and Plan: Patient underwent a core needle biopsy and hematoma aspiration by Radiology on the and reports that the following day on the she removed pressure dressing and that is when she noticed the bleeding. She then underwent an Incision and drainage of left breast hematoma, wound washout and hemostasis on 07/[address] Belcher. Wound care and pain control be deferred to the surgeon. Hemoglobin was 7.7 postoperatively and was likely erroneously; repeat level this am is 11.7 Continue to monitor (2) Left breast mass: Code(s): N63.20 - Unspecified lump in the left breast, unspecified quadrant Status: Acute Assessment and Plan: Status post needle biopsy on 07/24/2024; pathology showed invasive ductal carcinoma. Definitive treatment for breast surgeon and Oncology. (3) Chronic obstructive pulmonary disease: Code(s): J44.9 - Chronic obstructive pulmonary disease, unspecified Status: Acute Assessment and Plan: Mild wheezing on exam but does not appear to have an acute exacerbation. Schedule bronchodilators overnight and continue maintenance inhalers. (4) Tobacco dependence: Code(s): F17.200 - Nicotine dependence, unspecified, uncomplicated Status: Acute Assessment and Plan: Smoking cessation is encouraged and was discussed. She declines the need for nicotine patch at this time. Subjective Date/time seen: 07/27/24 07:56 Interval history: 69-year-old female smoker with chronic obstructive pulmonary disease whom the hospitalist service has been consulted for medical management after a left breast biopsy. Review of Systems Review of Systems: All systems reviewed & are unremarkable except as noted in HPI and below Exam Narrative: AF General: well nourished, well-developed female in no acute respiratory distress who is nontoxic appearing, lying semi recumbent in bed. HEENT: Normocephalic. Atraumatic. Pupils equal round reactive to light. Extraocular movement intact. Sclera clear and anicteric. Nares patent. No oral lesions. Moist mucous membranes. Tongue is midline. Palate gunjan symmetrically. No facial asymmetry. Neck: Neck was supple. No dominant adenopathy, thyromegaly or masses. 2+ carotid upstrokes without bruits. Chest: Lungs are clear to auscultation bilaterlly. No wheezes or crackles. CV: Heart was regular rate and rhythm. S1-S2. No murmurs, gallops, or rubs. Abd: Abdomen was soft. Nontender. Nondistended. Postive bowel sounds. No organomegaly or masses. Ext: No clubbing, cyanosis, or edema. 2+ DP pulses bilaterally. Neuro: Patient is alert and oriented x4. Strenth is 5/5 in both upper and lower extremities. Cranial nerves 2-12 are intact. Speech is clear. Psych: Normal nood and affect. Patient is pleasant and cooperative. Skin: Warm and dry. No rashes noted. Objective Data Vital Signs Vital Signs: Vital Signs - 24 hr 07/26/24 12:55 07/26/24 15:56 07/26/24 16:10 Temperature 97.9 F 97.7 F Pulse Rate 101 H 91 81 Respiratory Rate 16 16 17 Blood Pressure 119/78 136/75 132/72 Pulse Oximetry 98 100 100 Oxygen Delivery Autopap Simple Face Mask Simple Face Mask Oxygen Flow Rate 8 8 07/26/24 16:25 07/26/24 16:40 07/26/24 16:55 Temperature Pulse Rate 82 83 81 Respiratory Rate 15 21 H 13 Blood Pressure 124/65 125/79 116/60 Pulse Oximetry 100 100 94 Oxygen Delivery Simple Face Mask Simple Face Mask Room Air Oxygen Flow Rate 8 8 07/26/24 17:10 07/26/24 18:00 07/26/24 18:00 Temperature 97.6 F Pulse Rate 80 75 Respiratory Rate 15 18 Blood Pressure 130/72 140/77 Pulse Oximetry 100 91 Oxygen Delivery Room Air Room Air Oxygen Flow Rate 07/26/24 18:06 07/26/24 18:47 07/26/24 20:48 Temperature 97.4 F L 97.8 F 98.2 F Pulse Rate 77 82 79 Respiratory Rate 16 16 18 Blood Pressure 137/70 121/63 117/55 L Pulse Oximetry 93 94 95 Oxygen Delivery Oxygen Flow Rate 07/27/24 00:25 07/27/24 02:42 07/27/24 02:52 Temperature 97.6 F Pulse Rate 83 89 90 Respiratory Rate 18 20 20 Blood Pressure 103/45 L Pulse Oximetry 95 Oxygen Delivery Oxygen Flow Rate 07/27/24 06:42 Temperature 97.7 F Pulse Rate 86 Respiratory Rate 16 Blood Pressure 134/80 Pulse Oximetry 94 Oxygen Delivery Oxygen Flow Rate Intake/Output Intake/Output: Intake & Output 07/24/24 07/25/24 07/26/24 07/27/24 23:59 23:59 23:59 23:59 Intake Total 1950 200 Output Total 400 Balance 1950 -200 Meds/Results Medications: Active Medications Generic Name Dose Route Start Last Admin Trade Name Freq PRN Reason Stop Dose Admin Acetaminophen 500 mg 07/26/24 16:01 07/26/24 21:23 Acetaminophen 500 Mg Tablet PO 500 mg Q6H PRN Administration Pain Rated 1-3 Albuterol 1 puff 07/26/24 16:23 Albuterol Sulfate (*Sp) Aerosol 1 Puff INHALATION Q4H PRN shortness of breath or wheezing Albuterol/Ipratropium 3 ml 07/27/24 02:00 07/27/24 02:40 Ipratropium 0.5 Mg/Albuterol Sulfate 2.5 Mg Ampul.Neb 3 Ml INHALATION 3 ml Q6HRT [place]IS[place] Administration Diphenhydramine HCl 25 mg 07/26/24 16:01 Diphenhydramine Hcl Inj 50 Mg/Ml Vial IV PUSH Q6H PRN Itching Docusate Sodium 100 mg 07/26/24 17:00 07/26/24 18:49 Docusate Sodium 100 Mg Capsule PO Not Given BID [place] Fentanyl Citrate 25 mcg 07/26/24 14:11 07/26/24 16:57 Fentanyl Citrate Inj (*Crx) 100 Mcg/2 Ml Vial IV PUSH 25 mcg Q2M PRN Administration Pain Hydromorphone HCl 1 mg 07/26/24 16:01 Hydromorphone Hcl Inj (*Crx) 1 Mg/Ml Syr IV PUSH Q2H PRN Breakthrough Pain Rated 7-10 or NPO Hydromorphone HCl 0.5 mg 07/26/24 16:01 Hydromorphone Hcl Inj (*Crx) 1 Mg/Ml Syr IV PUSH Q2H PRN Breakthrough Pain Rated 4-6 or NPO Lactated Ringer's 1,000 mls @ 30 mls/hr 07/26/24 14:10 07/26/24 15:56 Lr - Lactated Ringers Iv IV CONT Infused .Q24H [place] Infusion Lactated Ringer's 1,000 mls @ 30 mls/hr 07/26/24 14:15 07/26/24 17:18 Lr - Lactated Ringers Iv IV CONT Infused .Q24H [place] Infusion Lorazepam 0.5 mg 07/26/24 16:23 Lorazepam (*Crx) 0.5 Mg Tablet PO DAILY PRN medical procedure/testing Miscellaneous Information 0 each 07/26/24 00:01 Please Enter Patients Weight Into Computer For Pharmacy Verification Of Cefazolin Dose. Th XX 08/25/24 00:00 CLARIFY [place] Naloxone HCl 0.1 mg 07/26/24 16:01 Naloxone Hcl 0.4 Mg/Ml Vial IV PUSH Q2M PRN Opiate Reversal Ondansetron HCl 4 mg 07/26/24 14:11 07/26/24 17:16 Ondansetron Inj 4 Mg/2 Ml Vial IV PUSH 4 mg ONCE PRN Administration Nausea Ondansetron HCl 4 mg 07/26/24 16:01 Ondansetron Inj 4 Mg/2 Ml Vial IV PUSH Q4H PRN Nausea And Vomiting Oxycodone HCl 5 mg 07/26/24 14:11 Oxycodone Hcl (*Crx) 5 Mg Tab Ir PO ONCE PRN Pain Oxycodone/Acetaminophen 1 tablet 07/26/24 16:01 Oxycodone/Acetaminophen (*Crx) 5-325 Mg Tablet PO Q4H PRN Pain Rated 4-6 Labs Labs: Laboratory Results - last 24 hr 07/26/24 07/26/24 07/26/24 15:23 18:19 20:16 WBC 5.9 10.3 H RBC 2.47 L 4.07 L Hgb 7.7 L 12.7 D Hct 24.5 L 38.6 MCV 99.2 94.8 MCH 31.2 31.2 MCHC 31.4 L 32.9 RDW 13.9 13.8 Plt Count 109 L 186 D MPV 8.8 8.9 PT 17.5 H 13.8 D INR 1.4 1.0 APTT 28.7 Fibrinogen 463 Sodium 136 L 136 L Potassium 4.3 4.5 Chloride 108 H 106 Carbon Dioxide 24 24 Anion Gap 4 6 BUN 24 H 24 H Creatinine 0.79 0.84 Estim Creat Clear Calc Not Reportable Not Reportable Estimated GFR > 60 > 60 Glucose 150 H 147 H Calcium 10.9 H 11.2 H Magnesium 1.9 Total Bilirubin AST ALT Alkaline Phosphatase Total Protein Albumin Blood Type O Positive Antibody Screen Negative 07/27/24 07/27/24 04:17 06:34 WBC 9.4 RBC 3.73 L Hgb 11.7 L Hct 35.6 L MCV 95.4 MCH 31.4 MCHC 32.9 RDW 13.9 Plt Count 179 MPV 9.0 PT INR APTT Fibrinogen Sodium 136 L Potassium 4.1 Chloride 108 H Carbon Dioxide 22 Anion Gap 6 BUN 20 H Creatinine 0.72 Estim Creat Clear Calc Not Reportable Estimated GFR > 60 Glucose 102 Calcium 10.6 H Magnesium Total Bilirubin 0.8 AST 19 ALT 17 Alkaline Phosphatase 121 Total Protein 6.0 L Albumin 3.2 L Blood Type Antibody Screen Quality VTE Prophylaxis VTE prophylaxis: mechanical ordered
[2024-07-27 08:21] VITALS: PULSE 80; RESP 18
--- NOTE | 2024-07-27 08:28 | PM.DS ---
DS: Admitting Diagnosis Discharge Date 07/27/24 Admitting Diagnosis Left Breast Hematoma DS: Discharge Diagnosis Discharge Diagnosis Plan 69 y/o female h/o COPD, current smoker, POD#1 s/p L breast hematoma evacuation from left breast mass needle biopsy 07/24/24, clinically improved with overnight observation. Pt tolerating normal diet, ambulating and voiding without issue, dressing today with minimal moist sanguinous drainage without evidence of recurrent hematoma on exam. Reviewed healing expectations and signs/symptoms of concern, especially but not limited to bleeding, fever/chills, swelling or change in size of the breast, SOB, chest pain, BLE pain, lightheadedness/dizziness, encouraged to seek immediate medical attention for emergent concerns. Reviewed possible risk of recurrent hematoma, and reviewed dressing/activity instructions to decrease risk. Reviewed recommendations for smoking cessation. Pt voiced understanding and agreement. Pt discussed with Dr. Belcher, in agreement with plan for discharge home today. Plan 1) continue compression dressing 2) smoking cessation advised 3) breast surg follow up within 1 week DS: Summary Hospital Course Reason for hospitalization: left breast hematoma Hospital Course: pt underwent L breast needle biopsy 07/24, presented to ED with L breast hematoma 07/26, seen in breast surg office same day with decision for hematoma evacuation in OR, admitted for observation s/p left breast hematoma evacuation in OR Time Spent with Patient Time attestation: Total time spent providing and/or coordinating discharge services: Exam Narrative: pt seen at bedside, no concerns overnight, not requiring PO pain medication. Ambulating and voiding without issue/assistance. Tolerating PO diet, passing gas, no bowel movement yet today. Pt denies pain, fever/chills, bleeding/redness, change in breast size, SOB, chest pain, BLE pain, abd pain, N/V/D, lightheadedness/dizziness. pt would prefer to go home today if possible. Const: Other: sitting comfortably in bed, NAD, conversational, comes to sitting and standing positions easily and unassisted HENMT: Other: mucous membranes moist Eyes: Other: sclera anicteric Resp: Effort & Inspection: normal respiratory effort Cardio: Other: RRR Skin: Other: breast binder in place, removed for exam, approximately 5cc moist sanguinous drainage on dressing, steri strips in place over left lateral IMF incision, no active bleeding. generally symmetric breast volume. moderate diffuse resolving left breast ecchymosis. moderate diffuse left breast tenderness and edema, without palpable mass/hematoma/seroma/fluctuance. DS: Data Data Completed and Pending Labs on day of discharge: Labs from last 24 hours 07/27/24 07/27/24 07/26/24 06:34 04:17 20:16 WBC 9.4 10.3 H RBC 3.73 L 4.07 L Hgb 11.7 L 12.7 D Hct 35.6 L 38.6 MCV 95.4 94.8 MCH 31.4 31.2 MCHC 32.9 32.9 RDW 13.9 13.8 Plt Count 179 186 D MPV 9.0 8.9 PT 13.8 D INR 1.0 APTT 28.7 Fibrinogen 463 Sodium 136 L 136 L Potassium 4.1 4.5 Chloride 108 H 106 Carbon Dioxide 22 24 Anion Gap 6 6 BUN 20 H 24 H Creatinine 0.72 0.84 Estim Creat Clear Calc Not Reportable Not Reportable Estimated GFR > 60 > 60 Glucose 102 147 H Calcium 10.6 H 11.2 H Magnesium 1.9 Total Bilirubin 0.8 AST 19 ALT 17 Alkaline Phosphatase 121 Total Protein 6.0 L Albumin 3.2 L Blood Type Antibody Screen 07/26/24 07/26/24 18:19 15:23 WBC 5.9 RBC 2.47 L Hgb 7.7 L Hct 24.5 L MCV 99.2 MCH 31.2 MCHC 31.4 L RDW 13.9 Plt Count 109 L MPV 8.8 PT 17.5 H INR 1.4 APTT Fibrinogen Sodium 136 L Potassium 4.3 Chloride 108 H Carbon Dioxide 24 Anion Gap 4 BUN 24 H Creatinine 0.79 Estim Creat Clear Calc Not Reportable Estimated GFR > 60 Glucose 150 H Calcium 10.9 H Magnesium Total Bilirubin AST ALT Alkaline Phosphatase Total Protein Albumin Blood Type O Positive Antibody Screen Negative Discharge Plan Discharge Patient Disposition: Home Discharge Instructions: Sahra Belcher MD [facility] [address] [place] [address] Post-operative Discharge Instructions: Left Breast Hematoma Diet: As tolerated Activity: Avoid overhead movements with the affected arm/side for 2 weeks. You should walk at least 3-4 times daily, but do not exert yourself. Avoid strenuous activity and heavy lifting. Ok to go up and down stairs. Dressing: Wear the compression bandage at all times, including at night while sleeping. May adjust or add compression to maintain pressure over the left breast, do not remove compression wrap. Showering: Sponge bathe only from the waist down. Keep surgical site and compression wrap dry and away from water. Follow up: Please call to schedule follow up appointment in office within 1 week from your surgery. Call the office with any questions or concerns in the meantime. If after hours, please call the hospital electron beam operator to be connected to the surgeon. If you have an emergency such as significant bleeding, SOB, chest pain, lightheadedness/dizziness, please seek emergent medical attention. Patient Instructions: How to Stop Smoking (DC) Patient Language: Uruguayan Discharge Medications: Continued albuterol sulfate 90 mcg/actuation HFA aerosol inhaler 1 inh inhalation Q4H PRN (Reason: shortness of breath or wheezing) Qty: 8.5 0RF lorazepam 0.5 mg tablet 0.5 mg PO DAILY PRN (Reason: medical procedure/testing) Qty: 5 0RF Rx Instructions: Take 30 minutes before scheduled testing.
== END 2024-07-27 10:00 | disposition home or self-care (01) ==
LOC: ANH2MED 07-30 10:30
PROVIDERS: Physician Assistant; Admitting Provider Surgery; PCP Family Medicine; Visit Provider Surgery
PROC: (CPT 10140; principal; 2024-07-26 14:30)
DX: L76.22 Postprocedural hemorrhage of skin and subcutaneous tissue following other procedure (principal); Y84.8 Other medical procedures as the cause of abnormal reaction of the patient, or of later complication, without mention of misadventure at the time of the procedure; C50.912 Malignant neoplasm of unspecified site of left female breast; J44.9 Chronic obstructive pulmonary disease, unspecified; F17.210 Nicotine dependence, cigarettes, uncomplicated; F41.9 Anxiety disorder, unspecified; Z79.51 Long term (current) use of inhaled steroids; Z79.899 Other long term (current) drug therapy
CPT/HCPCS: 10140; 36415; 80048; 80053; 83735; 85027; 85384; 85610; 85730; 86850; 86900; 86901; 93005; 94640; 99199; A9270; G0378; J0330; J0690; J2003; J2405; J2704; J3010; J7120

== ENCOUNTER 2024-08-01 00:29 | Day surgery (SDC) | payer MEDICARE, SELFPAY ==
--- NOTE | 2024-07-30 14:48 | PC.NURSE ---
Report to the Outpatient Waiting Room, entrance under the green pavilion located off [facility], at time _11 AM on date _08/01/24 . Planned Procedure Time: __1:00 PM [facility] AT 1145 .? Time changes happen often and if your time is changed the preop area will call you the afternoon before. - You and your visitor will be asked to self-screen and do not enter if you have any COVID symptoms. Please call surgeon if you need to reschedule. - A mask is optional within the hospital at this time. Patients may have clear liquids (water, carbonated beverages, clear teas, apple juice) until 3 hours prior to surgery ( 10 AM)with a maximum of 20 ounces. - No food from midnight until time of surgery and no smoking, or chewing tobacco (or any form of nicotine). No chewing gum, candy or mints. - Take only the following medications with a SIP of water on the morning of surgery: INHALER IF NEEDED,LORAZEPAM DO NOT STOP ANY OF YOUR OTHER PRESCRIPTION MEDICATIONS PRIOR TO SURGERY EXCEPT THE FOLLOWING Hold all vitamins and supplements for 3 days per anesthesiologist. Medications to discontinue per physician NONE Please no make-up, nail tanzanian, hairspray, perfume, deodorant, or body powder the day of surgery.? No jewelry (including any body piercings) or valuables the day of surgery, leave them at home.? Please take a shower or bath the night before, or the morning of, surgery with an antibacterial soap.? Wear comfortable, loose fitting clothing.? Children are encouraged to wear pajamas. - Jewelry must be removed prior to entering the operating room.? Rings and piercings that are not removed may be cut off. - The hospital will not accept responsibility for valuables.? - Please leave all valuables, including medications, at home the day of surgery. If you are going home after surgery, a licensed electric lift truck driver must drive you home.? - NO public transportation without another adult if you receive anesthesia. - We recommend that an adult stay with you for 24 hours following discharge. - We also recommend that you do not drive, make important decision, drink alcoholic beverages, or take any drugs that were not prescribed by your health care provider for at least 24 hours after your discharge time. For Pediatric surgeries, we recommend two adults accompany the child home. Follow any additional instructions given to you from your surgeon. Telephone instructions given to _PATIENT and asked if any additional questions and then verbalized understanding. Patient advised to call surgeon office or pre surgery nurse liaison [phone] if any additional questions.
[2024-07-30 14:53] VITALS: BMI 26.3
--- NOTE | 2024-07-31 14:50 | P.PNAN_ITS ---
Anes - Initial Pre Proc Eval Procedure: Operation Date: 08/01/24 13:00 Proposed Procedures p Left Total Mastectomy with Left Anton Lymph Node Biopsy, Injection of Lymphoseek and Methylene Blue, Possible Adjacent Tissue Transfer - Sahra Belcher MD Date/Time: 07/31/24 14:50 Surgeon: Sahra Belcher MD Pre Op Diagnosis: invasive ductal CA left breast Patient Data Age: 69 Gender: F Height: 1.49 m Weight: 58.1 kg Allergies Allergy/AdvReac Type Severity Reaction Status Date / Time No Known Allergies Allergy Unknown Verified 08/01/24 12:15 Home Medications ?Medication ?Instructions ?Recorded ?Confirmed ?Type albuterol sulfate 90 mcg/actuation 1 inh inhalation Q4H PRN shortness 07/27/24 07/30/24 Rx aerosol inhaler of breath or wheezing #8.5 grams acetaminophen 500 mg tablet 500 mg PO Q6H PRN pain 07/30/24 07/30/24 History (Acetaminophen Pain Relief) Patient hx anesthesia problems: none Family hx anesthesia problems: none Results Review: All pre-operative results and documents have been reviewed as part of the pre- operative evaluation. [facility] Past Medical History Medical History (Updated 07/30/24 @ 13:44 by Sahra Belcher MD) Tobacco dependence Chronic obstructive pulmonary disease Anxiety Left breast mass Surgical History Surgical History (Updated 07/26/24 @ 17:02 by Neli Cortes PA-C) History of section History of left breast biopsy Social History Social History (Updated 07/26/24 @ 17:02 by Neli Cortes PA-C) Social History: Surrogate medical decision maker: Ralph Jones, spouse. Code status: Full code. Smoking packs per day: 1 Smoking cigarettes per day: 20.0 Years smoked: 47 Smoking pack-years: 47.00 Smoking status: Former smoker Second hand tobacco smoke exposure: No Alcohol intake: never Substance use: never Substance use type: does not use Do You Feel Safe in your Home?: Yes Lack of Transportation: No Lack of Food: Never True Current Housing: Decline to Answer Concerned About Future Housing: Decline to Answer Difficulty Paying Gas/Electric Bills: No Difficulty Paying for Meds: No Currently Unemployed: No Education: High School Diploma/GED Difficulty w/ Childcare or Family Care: No Living arrangements: with family Occupation/Education: retired Spiritual care concerns: No Agree to blood products: Yes Anes - Eval Final PreProcedure Day of Procedure 07/31/24 14:50 Patient weight: overweight Heart: regular rate and rhythm Lungs: clear to auscultation Airway: Mallampati scale class II and special considerations poor dentition Neurological: alert and oriented Last oral intake: >/= 8 hours ASA classification: III Emergent: no Anesthetic plan: proceed Anesthesia type and monitoring: general LMA and standard monitoring Results Review: All pre-operative results and documents have been reviewed as part of the pre- operative evaluation. Informed Consent: The patient's anesthetic plan and its attendant risks and benefits were discussed with the patient/family/POA. Questions were solicited and answers provided to the satisfaction of the patient/family/POA.
[2024-08-01] VITALS (9 sets, daily range): BP systolic 101–144; BP diastolic 51–79; PULSE 74–92; RESP 10–20; TEMP 36.6–36.9; O2SAT 96–100
--- NOTE | ~2024-08-01 | NM_ITS ---
NM sentinel node inject only 08/02/2024 7:14 CDT INDICATION: Left breast cancer TECHNIQUE: 0.97 Millicuries Tc 99m filtered sulfur colloid was injected and 4 aliquots in the anterio r upper outer quadrant of the breast near the areola. Dr. Belcher performed the procedure. No images were obtained. IMPRESSION: 1: Status post left breast sentinel lymph node radiopharmaceutical injection. Reviewed, dictated and finalized at location A.
--- OUTSIDE RECORDS SUMMARY | 2024-08-01 00:32 | XMS_ITS | Clinical Summary ---
Author Organization [facility] [employer] Address [address] [place] [address] Care Team Providers Care Clinical Analyst Name Role Phone Raffi Jean MD Primary Care Provider Source Comments [facility],non-owned Affiliates and Associated Physician Practices is amultiple site organization consisting of ambulatory clinics and hospital sitesin [place], [place], [place] and [place]. This disclosure is being madepursuant to the Care Everywhere program and may not contain all information available regarding this patient. Last updated 17.[facility] [employer] Allergies No known active allergies Medications * Be aware that medications may not be up to date on this document. Alwaysverify current medications with the patient. albuterol HFA (PROAIR HFA) 108 (90 BASE) MCG/ACT inhaler Inhale 2 Puffs by mouth every 4 hours as needed for Shortness of Breath, Wheezing or Cough 1 Inhaler 1 6 Active pzboeoxbd-kju-v m-apap (ROBITUSSIN FLU) 15-1-5-160 MG/5ML syrup Take [...] Comments Blood Pressure 110/66 02/16/2016 12:54 PM BLOOD DONOR RECRUITER SUPERVISOR Pulse 84 02/16/2016 12:54 PM BLOOD DONOR RECRUITER SUPERVISOR Temperature 36.7 C (98.1 F) 02/16/2016 12:54 PM BLOOD DONOR RECRUITER SUPERVISOR Respiratory Rate 18 02/16/2016 12:54 PM BLOOD DONOR RECRUITER SUPERVISOR Oxygen Saturation 97% 02/16/2016 12:54 PM BLOOD DONOR RECRUITER SUPERVISOR Inhaled Oxygen Concentration - - Weight 56.7 kg (125 lb) 02/16/2016 12:54 PM BLOOD DONOR RECRUITER SUPERVISOR Height 148.6 cm (4' 10.5 ) 02/16/2016 12:[address] Body Mass Index 25.68 02/16/2016 12:54 PM BLOOD DONOR RECRUITER SUPERVISOR Plan of Treatment Health Maintenance Due Date Last Done Comments BONE DENSITY TESTING 1956 COLOGUARD (AGES 45-75) - COL ON CA SCREENING 1956 COLON MONITORING 1956 COLONOSCOPY - COLON CA SCREENING 1956 CT COLONOGRAPHY - COLON CA SCREENING 1956 Colorectal Cancer Screening 1956 FIT - COLON CA SCREENING 1956 FLEX SIG - COLON CA SCREENING 1956 LIPID TESTING 1956 MAMMOGRAM 1956 MEDICARE AWV 12 MONTHS 1956 HEPATITIS C SCREENING 02/10/1974 DTAP/TDAP/TD VACCINES (1 - Tdap) 02/14/1975 PNEUMOCOCCAL VACCINE 50+ (1 of 2 - PCV) 02/14/1975 ZOSTER VACCINE (1 of 2) 02/14/2006 COVID-19 [...] / using tobacco Lifestyle No Bárbara Lo, LINE OPERATOR-OFFICE RENTAL CLERK Insurance [facility] MEDICARE SELF PAY NO INSURANCE Member Subscriber Plan / Payer (Ef fective for All Dates) Name:Daniele Infantera Member ID:Not on file Relation to Subscriber:Not on file Name:ARELISDANIELEBONNIE Subscriber ID:Not on file (Home) Address: [address] [place] [id number] Payer ID:Not on file Group ID:Not on file Type:Self Pay Address: [place], [place] Care Teams Clinical Analyst Relationship Specialty Start Date End Date Raffi Jean MD [address] [place] [address] PCP - General Family Medicine 02/01/16
[2024-08-01] MEDS: LIDOCAINE/PRILOCAINE CREAM 2.5-2.5% TUBE 1 EACH TOPICAL (11:30)
--- NOTE | 2024-08-01 11:35 | WPDHPUPDATE1 ---
History and Physical Update Update Date/Time: 08/01/24 11:35 - Left total mastectomy, left sentinel lymph node biopsy, injection of Lymphoseek and methylene blue for sentinel lymph node biopsy, and possible adjacent tissue transfer for flat closure. History and Physical has been reviewed, including an updated exam of the patient. There are NO changes in the patient's condition. Risks, benefits, and alternatives have been discussed and questions answered. Patient agrees to proceed with procedure.
[2024-08-01] MEDS: LACTATED RINGERS 1,000 ML 30 ML IV CONT ×2 (12:05→15:48)
[2024-08-01] MEDS: ACETAMINOPHEN 500 MG TABLET 1000 MG PO (12:05)
[2024-08-01] MEDS: ceFAZolin 2 GM/D5W 50 ML 2 GM/50 ML BAG IVPB (13:24)
[2024-08-01] MEDS: BUPIVACAINE/EPINEPHRINE 0.5% 10 ML VIAL 30 ML INFILTRATE (14:19)
--- NOTE | 2024-08-01 14:43 | SUR.OPER ---
1439 - Left Drake Lymph Node Excised. Neoprobe count 11,624. 1443 - Specimen sent fresh to Pathology per Isela, PCT. 1446 - Drake Lymph Node received by Jaime in Path.
--- NOTE | 2024-08-01 15:23 | SUR.OPER ---
Left Breast Mastectomy specimen was taken from the field and delivered to pathology by MEREDITH Melo. Given to Brandin.
--- NOTE | 2024-08-01 15:43 | P.OP_ITS ---
Procedure Note - Detailed Date of Procedure 08/01/24 Pre-op Diagnosis invasive ductal CA left breast Post-op Diagnosis Same Procedure Performed 1. Left total mastectomy 2. Left sentinel lymph node biopsy 3. Injection of Lymphoseek for sentinel lymph node mapping 4. Injection of methylene blue for dual tracing Surgeon Sahra Belcher MD Oracle Technical Developer Steff Pandya PA-C Anesthesia General Description of Procedure Patient was identified in the preoperative holding area brought to the operating room suite.?I injected lymphoseek in the periareola area of the left breast in the subdermal plane in nuclear Medicine prior to presentation to preoperative area. Patient was taken to the operating room and sequential compression devices were applied. General anesthesia was induced without difficulty.?Left chest and left axillary areas were prepped draped in sterile fashion.? Methylene blue was injected into the subdermal plane in the periareolar area of the left breast for dual tracing. The Neoprobe probe was used to find the area of highest radio activity in the axilla, and an incision was made overlying this area that was incorporated into the mastectomy incision.? Dissection was carried down through the subcutaneous tissue and the clavipectoral fascia was incised.? I was able to identify a node that was hot and blue.? This was gently grasped and excised using the LigaSure device.? The Neoprobe was used to obtain an ex-vivo count which was approximately 11,624.? The node was sent to pathology as a fresh specimen.? The Neoprobe was again used to scan the axilla trying to identify another node that was at least 10% of the original sentinel lymph node count. No other node was found and the axilla was irrigated and hemostasis was assured. Attention was then turned to the left breast. An elliptical incision encompassing the nipple areolar complex was made and dissection was carried down through the subcutaneous tissue and continued through the thin areolar tissue plane between the subcutaneous tissue with the breast tissue superiorly to the inferior border of the clavicle.? We then continued our dissection medially to the lateral aspect of the sternum, inferiorly to the inframammary fold and laterally to latissimus.? Once this was performed the breast tissue along with the pectoralis fascia was dissected off the pectoralis muscle posteriorly.? The mastectomy specimen was then marked short stitch superior long stitch lateral stitch lateral for orientation.? The specimen was then sent to pathology as a fresh specimen.? Hemostasis was assured. A 7 Fr flat drain was placed above the pectoralis muscle and secured to the skin with silk suture. ?Given the redundant skin flap inferiorly, decision was made to excised the extra inferior mastectomy skin flap down to IMF for a flat closure. The deep dermal layer was approximated with interrupted 3-0 vicryl, followed by 4-0 monocryl in a subcuticular fashion for the skin. Dermabond was applied followed by sterile compression dressing. All needles counts were correct as reported by the operating room staff. Patient tolerated the procedure well with no immediate complications. Steff Pandya PA-C assisted with retraction and positioning for the entirety of the case Estimated Blood Loss 40 Drains Yes Pathology Yes Complications No immediate complications Condition Stable Disposition PACU [facility] Billing Surgery - Charge Forward: Surgery Billing (CPT 74139, [id number] - 59, [id number] - 59, [id number] - 59)
[2024-08-01] MEDS: DOCUSATE SODIUM 100 MG CAPSULE PO (18:17)
[2024-08-01] MEDS: LACTATED RINGERS 1,000 ML 100 ML IV CONT (18:17)
[2024-08-01] MEDS: ACETAMINOPHEN 325 MG TABLET 650 MG PO (18:17)
[2024-08-02] MEDS: ACETAMINOPHEN 325 MG TABLET 650 MG PO (00:30)
[2024-08-02 00:36] VITALS: BP 104/53; PULSE 76; RESP 16; TEMP 36.5; O2SAT 96
[2024-08-02 04:49] VITALS: BP 101/52; PULSE 63; RESP 16; TEMP 36.6; O2SAT 96
--- NOTE | 2024-08-02 07:50 | P.SS_ITS ---
Same Day Admit/Disch: HPI History of Present Illness Chief complaint: invasive ductal CA left breast Narrative: Bonnie Jones is a 69 year old female who presented for left breast mass, who underwent core needle biopsy last week by Radiology. Post-procedure, she developed persistent bleeding from biopsy site and required trip to OR for washout and hemostasis. Patient initially did well, but started bleeding again a few days later. She was seen in clinic, and dressing changed. Patient was recommended to go the OR for definitive surgery, since the tumor was friable and oozing intermittently. After discussing options of surgical approach, patient elected to proceed with a total mastectomy for definitive treatment of her left side invasive ductal carcinoma. Patient was also recommended for a sentinel lymph node biopsy to be done at the same time as per guidelines. Patient underwent surgery on August 02 and was admitted overnight for observation. [facility] Past Medical History Medical History (Updated 07/30/24 @ 13:44 by Sahra Belcher MD) Tobacco dependence Chronic obstructive pulmonary disease Anxiety Left breast mass Surgical History Surgical History (Updated 07/26/24 @ 17:02 by Neli Cortes PA-C) History of section History of left breast biopsy Social History Social History (Updated 07/26/24 @ 17:02 by Neli Cortes PA-C) Social History: Surrogate medical decision maker: Ralph Jones, spouse. Code status: Full code. Smoking packs per day: 1 Smoking cigarettes per day: 20.0 Years smoked: 47 Smoking pack-years: 47.00 Smoking status: Former smoker Second hand tobacco smoke exposure: No Smoking end date: 07/23/24 Alcohol intake: never Substance use: never Substance use type: does not use Do You Feel Safe in your Home?: Yes Lack of Transportation: No Lack of Food: Never True Current Housing: Decline to Answer Concerned About Future Housing: Decline to Answer Difficulty Paying Gas/Electric Bills: No Difficulty Paying for Meds: No Currently Unemployed: No Education: High School Diploma/GED Difficulty w/ Childcare or Family Care: No Living arrangements: with family Occupation/Education: retired Spiritual care concerns: No Agree to blood products: Yes Same Day Admit/Disch: Med Pre-admit Medications Home Medications ?Medication ?Instructions ?Recorded ?Confirmed ?Type albuterol sulfate 90 mcg/actuation 1 inh inhalation Q4H PRN shortness 07/27/24 07/30/24 Rx aerosol inhaler of breath or wheezing #8.5 grams acetaminophen 500 mg tablet 500 mg PO Q6H PRN pain 07/30/24 07/30/24 History (Acetaminophen Pain Relief) hydrocodone 5 mg-acetaminophen 325 1 tablet PO Q6H PRN pain #16 tabs 08/01/24 Rx mg tablet Review of Systems Review of Systems All systems reviewed & are unremarkable except as noted in HPI and below Exam Const: General: comfortable and no acute distress Eyes: General: appearance normal, both eyes and all related structures Resp: Effort & Inspection: normal respiratory effort Cardio: Rate: regular rate GI: GI Palp: Yes Soft to palpation Skin: General skin exam: normal color Other: Left mastectomy incision is closed with no open wounds. Flap is well perfused and viable throughout with mild ecchymosis centrally which was present prior to surgery. There is no erythema or fluctuance noted. Drain has scant serous sanguinous fluid. Extrem: General: normal to inspection Psych: Mental Status: mental status grossly normal DS: Data Data Completed and Pending Pending studies at discharge: Pending at discharge 08/01/24 14:43 Surgical [PTH] Routine Surgical [PTH] Routine Labs on day of discharge: Labs from last 24 hours 08/01/24 11:33 Blood Type O Positive Antibody Screen Negative DS: Summary Hospital Course Reason for hospitalization: Patient was admitted for overnight observation after undergoing left total mastectomy, left sentinel lymph node biopsy for surgical treatment of left breast invasive ductal carcinoma. Overnight patient did very well. Her pain is well controlled on p.o. pain meds. She has tolerated a regular diet and ambulating without assistance. Patient is voiding without any issues. She was deemed ready for discharge on postop day 1. Status at Discharge Functional status at discharge: independent ambulation Time Spent with Patient Time attestation: Total time spent providing and/or coordinating discharge services: Time spent: Less than 30 minutes DS: Admitting Diagnosis Discharge Date 08/02/2024 Admitting Diagnosis Left breast invasive ductal carcinoma DS: Discharge Diagnosis Discharge Diagnosis (1) Invasive ductal carcinoma of left breast: Code(s): C50.912 - Malignant neoplasm of unspecified site of left female breast Status: Acute (2) Hematoma of left breast: Code(s): N64.89 - Other specified disorders of breast Status: Acute Plan ready for discharge. Patient will follow-up in 1 week for drain assessment and possible removal. Discharge Plan Discharge Patient Disposition: Home Discharge Instructions: Sahra Belcher MD [facility] [address] [place] [address] Post-operative Discharge Instructions Diet: As tolerated Activity: Avoid overhead movements with the affected arm/side for 2 weeks. You should walk at least 3-4 times daily, but do not exert yourself. Ok to go up and down stairs. Dressing: Wear the compression bandage or compression bra at all times, including at night while sleeping. Do not remove compression garment. Showering: No showers or baths while drain is in place. Ok for sponge baths from waist down. Do not get bra/incisions/drains wet. Drain Care: Strip the drain tubing at least once a day, and empty drain. Record the drain output and bring record to your follow up visit. Follow Up: Return to the office within 1 week for post-op follow up visit. Call the office with any questions or concerns in the meantime. If after hours, please call the electroslag welding machine operator to be connected to the surgeon. If you have an emergency , call 911 or go to the nearest ER. Patient Language: Japanese Stand Alone Forms: General Discharge Instructions Discharge Medications: New hydrocodone-acetaminophen 5-325 mg tablet 1 tablet PO Q6H PRN (Reason: pain) Qty: 16 0RF Continued acetaminophen [Acetaminophen Pain Relief] 500 mg tablet 500 mg PO Q6H PRN (Reason: pain) albuterol sulfate 90 mcg/actuation HFA aerosol inhaler 1 inh inhalation Q4H PRN (Reason: shortness of breath or wheezing) Qty: 8.5 3RF Patient Comments: FOR ALLERGIES
[2024-08-02 08:35] VITALS: BP 114/55; PULSE 67; RESP 18; TEMP 36.7; O2SAT 95
--- NOTE | 2024-08-02 09:16 | WPDANESPN ---
Anes - Prog Note Post-Op Date/Time: 08/02/24 09:16 Cardiovascular status: normal Respiratory status: normal Airway patency: baseline Mental status: baseline Post-Op hydration status: normal Vital Signs: Last Vital Signs Temp 36.6 C 08/02/24 04:49 Pulse 63 08/02/24 04:49 Resp 16 08/02/24 04:49 BP 101/52 L 08/02/24 04:49 Pulse Ox 96 08/02/24 04:49 O2 Del Method Nasal Cannula 08/01/24 17:03 O2 Flow Rate 2 08/01/24 17:03 Pain Score (VAS): 210 I/O: Intake & Output 08/01/24 08/02/24 08/02/24 23:59 07:59 15:59 Output Total 179 25 -179 08/01/24 11:33 Blood Type O Positive Antibody Screen Negative Post-procedural complaints: none Patient Feedback: Patient satisfied with anesthetic care.
== END 2024-08-02 10:00 | disposition home or self-care (01) ==
LOC: ANHSURGERY 10:51 → ANHOB2 17:22
PROVIDERS: PCP Family Medicine; Visit Provider Surgery
PROC: (CPT 19303; principal; 2024-08-01 13:00)
DX: C50.912 Malignant neoplasm of unspecified site of left female breast (principal); N64.89 Other specified disorders of breast; J44.9 Chronic obstructive pulmonary disease, unspecified; F41.9 Anxiety disorder, unspecified; Z79.51 Long term (current) use of inhaled steroids; Z79.891 Long term (current) use of opiate analgesic; Z98.890 Other specified postprocedural states; Z87.891 Personal history of nicotine dependence
CPT/HCPCS: 19303; 38525; 36415; 38792; 86850; 86900; 86901; 88307; 88342; 99199; A9270; A9520; J0690; J1100; J1171; J2250; J2405; J2704; J3010; J7120; Q9968

== ENCOUNTER 2024-09-08 09:37 | Outpatient (CLI) | payer MEDICARE, SELFPAY ==
--- NOTE | ~2024-09-08 | DEXA_ITS ---
Bone Density Report Name: JONO INFANTE Age: 69 Sex: Female Ethnicity: White Date of : 1955 Indication: postmenopausal; screening for osteoporosis; cancer; Referring Provider: FRANK KELLER Study: Bone densitometry was performed. Exam Date: September 08, 2024 Accession number: [id number] Bone Density: Region BMD T-score Z-score Classification AP Spine(L1-L4) 0.681 -3.3 -1.3 Osteoporosis Femoral Neck (Left) 0.517 -3.0 -1.3 Osteoporosis Total Hip (Left) 0.710 -1.9 -0.5 Osteopenia Femoral Neck (Right) 0.520 -3.0 -1.2 Osteoporosis Total Hip (Right) 0.658 -2.3 -0.9 Osteopenia Total Hip Mean 0.684 -2.1 -0.7 Osteopenia World Health Organization criteria for BMD impression classify patients as: Normal (T-score at or above -1.0), Osteopenia (T-score between -1.0 and -2.5), or Osteoporosis (T-score at or below -2.5). 10-year Fracture Risk: FRAX not reported because: Some T-score for Spine Total or Hip Total or Femoral Neck at or below -2.5 Clinical Information Provided by Patient: Has the following medical conditions: Cancer Patient maximum height was 58 No regular weight bearing exercise Drinks caffeinated beverages Onset of menses at age 10 Number of children 2 Impression: The patient has osteoporosis, based on the Total Spine T-score. Discussion: INCREASED RISK OF FRACTURE. BONE DENSITY IS UNDESIRABLY LOW AT ONE OR MORE SKELETAL SITES, CONSISTENT WITH POSTMENOPAUSAL OSTEOPOROSIS. This patient's lowest T-score meets the World Health Organization's (WHO) criteria for osteoporosis at one or more sites (T-score -2.5 or below). In untreated patients, the risk of osteoporotic fracture increases approximately two-fold for each 1.0 SD decrease in T-score. Low bone density is not the only risk factor for fracture; also consider factors such as patient's age, frailty or poor health, risk of falling, risk of injury, previous osteoporotic fracture, family history of osteoporosis, cigarette smoking, low body weight, etc. Not everyone with low bone mineral density has osteoporosis; osteomalacia and other metabolic bone disorders should also be considered. Patients who have osteoporosis should be evaluated for specific diseases and conditions (secondary causes) that may cause or contribute to bone loss. The [place] Association of Clinical Endocrinologists (AACE) and National Osteoporosis Foundation (NOF) recommend pharmacologic intervention for all postmenopausal women whose T-score is in this range. The patient should follow a healthful lifestyle (good nutrition with adequate calcium and vitamin D, and appropriate weight-bearing exercise). Follow-Up: Consider a repeat BMD and Vertebral Fracture Assessment (VFA) exam in 2 years or sooner if medically necessary, to reassess this patient's status. Reported by: SHANAE on 09/08/2024 10:17:00 AM. Reviewed, dictated and finalized at location A.
--- OUTSIDE RECORDS SUMMARY | 2024-09-08 09:42 | XMS_ITS | Clinical Summary ---
Author Organization [facility] Address [address] [place] [address] Care Team Providers Care Dog Handler Name Role Phone Raffi Jean MD Primary Care Provider [phone] Source Comments [facility],non-owned Affiliates and Associated Physician Practices is amultiple site organization consisting of ambulatory clinics and hospital sitesin [place], [place], [place] and [place]. This disclosure is being madepursuant to the Care Everywhere program and may not contain all information available regarding this patient. Last updated 17.[employer] [facility] Allergies No known active allergies Medications * Be aware that medications may not be up to date on this document. Alwaysverify current medications with the patient. albuterol HFA (PROAIR HFA) 108 (90 BASE) MCG/ACT inhaler Inhale 2 Puffs by mouth every 4 hours as needed for Shortness of Breath, Wheezing or Cough 1 Inhaler 1 6 Active fqgzsfadm-kwj-a m-apap (ROBITUSSIN FLU) 15-1-5-160 MG/5ML syrup Take [...] Comments Blood Pressure 110/66 02/16/2016 12:54 PM PHLEBOTOMY DIRECTOR Pulse 84 02/16/2016 12:54 PM PHLEBOTOMY DIRECTOR Temperature 36.7 C (98.1 F) 02/16/2016 12:54 PM PHLEBOTOMY DIRECTOR Respiratory Rate 18 02/16/2016 12:54 PM PHLEBOTOMY DIRECTOR Oxygen Saturation 97% 02/16/2016 12:54 PM PHLEBOTOMY DIRECTOR Inhaled Oxygen Concentration - - Weight 56.7 kg (125 lb) 02/16/2016 12:54 PM PHLEBOTOMY DIRECTOR Height 148.6 cm (4' 10.5) 02/16/2016 12:[address] Body Mass Index 25.68 02/16/2016 12:54 PM PHLEBOTOMY DIRECTOR Plan of Treatment Health Maintenance Due Date [...] / using tobacco Lifestyle No Bárbara Lo, SHIPPING INSPECTOR-CONDUCTOR AND ENGINEER Insurance [facility] Address: [facility] [address] [place] [address] MEDICARE SELF PAY NO INSURANCE Member Subscriber Plan / Payer (Ef fective for All Dates) Name:Bonnie Infante Member ID:Not on file Relation to Subscriber:Not on file Name:BONNIE INFANTE Subscriber ID:Not on file (Home) Address: [address] [place] [id number] Payer ID:Not on file Group ID:Not on file Type:Self Pay Address: [place], [place] Care Teams Dog Handler Relationship Specialty Start Date End Date Raffi Jean MD [address] [place] [address] PCP - General Family Medicine 02/01/16
--- OUTSIDE RECORDS SUMMARY | 2024-09-08 09:42 | XMS_ITS | Clinical Summary ---
Author Organization [facility] [place] Address [address] [place] [address] Care Team Providers Care Boom Conveyor Operator Name Role Phone Unavailable Primary Care Provider Unavailabl e Allergies No known active allergies Medications MULTIVITAMIN ORAL Take by mouth daily. Active Active Problems No known active problems Encounters Date Type Department Care Team Description 09/05/2024 10:30 AM CDT Office Visit [facility] Oncology and Hematology - [place] [address] [place] [address] Ruiz Parker MD Osteopenia of multiple sites (Primary Dx) from Last 3 Months Family History Medical History Relation Name Comments No Known Problems Brother 1 No Known Problems Brother 2 No Known Problems Child 1 No Known Problems Child 2 Lung Cancer Father Bone Cancer Mother Relation Name Status Comments Brother 1 Brother 2 Alive Child 1 Alive Child 2 Alive Father Mother Social History Tobacco Use Types Packs/Day Years Used Date Smoking Tobacco: Former Cigarettes 0.5 42.3 0 04/11/1982 - 08/08/2024 Smokeless Tobacco: Never Tobacco Cessation:Counseling Given: Not Answered Alcohol Use Standard Drinks/Week Comments Never 0 (1 standard drink = 0.6 oz pur e alcohol) Comments Unknown Sex and Gender Information Value Date Recorded Sex Assigned at Not on file Legal Sex Female 3:03 PM CDT Gender Identity Not on file Sexual Orientation Not on file Last Filed Vital Signs Vital Sign Reading Time Taken Comments Blood Pressure 110/70 09/05/2024 10:37 AM CDT Pulse 71 09/05/2024 10:37 AM CDT Temperature 36.3 C (97.4 F) 09/05/2024 10:37 AM CDT Respiratory Rate 15 09/05/2024 10:37 AM CDT Oxygen Saturation 96% 09/05/2024 10:37 AM CDT Inhaled Oxygen Concentration - - Weight 59.9 kg (132 lb) 09/05/2024 10:37 AM CDT Height 147.3 cm (4' 10) 09/05/2024 10:37 AM CDT Body Mass Index 27.59 09/05/2024 10:37 AM CDT Plan of Treatment Upcoming Encounters Date Type Department Care Team (Late st Contact Info) Description 09/13/2024 4:30 PM CDT Telephone Check Up [facility] Oncology and Hematology - [place] [address] [facility] [address] [place] [address] Ruiz Parker MD [address] [place] [address] Health Maintenance Due Date Last Done Comments Pre-Diabetes and Diabetes Screening 1955 DTAP/TDAP/TD VACCINES (1 - Tdap) 02/14/1975 BREAST CANCER SCREENING 1996 COLORECTAL SCREENING 02/14/2001 Colorectal Cancer Screening 02/14/2001 FIT-DNA Q 3 years 02/14/2001 FIT/FOBT Q 1 year 02/14/2001 Flex Sig/CT Colonography Q 5 years 02/14/2001 Lung Cancer Screening 02/14/2006 PNEUMOCOCCAL VACCINE 50+ YEARS (1 of 1 - PCV) 02/15/20 06 ZOSTER VACCINE (1 of 2) 02/14/2006 OSTEOPOROSIS SCREENING 02/14/2021 INFLUENZA VACCINE (#1) 2023 RSV VACCINE (60+ or ) (1 - 1-dose 75+ series) 02/14/2031 Insurance MEDICARE PART A AND B
== END 2024-09-08 09:38 | disposition home or self-care (01) ==
PROVIDERS: PCP Family Medicine; Visit Provider Internal Medicine Hematology & Oncology
DX: M81.0 Age-related osteoporosis without current pathological fracture (principal); M85.89 Other specified disorders of bone density and structure, multiple sites
CPT/HCPCS: 77080

== ENCOUNTER 2024-12-27 11:33 | Outpatient (CLI) | payer MEDICARE, SELFPAY ==
--- OUTSIDE RECORDS SUMMARY | 2024-12-27 11:57 | XMS_ITS | Encounter Summary ---
Author Organization [facility] Address [address] [place] [address] Care Team Providers Care Sql Ssis Developer Name Role Phone Unavailable Primary Care Provider Unavailabl e Encounter Details Date Type Department Care Team (Late st Contact Info) Description 12/25/2024 External Device Data [facility] ABSTRACTION Provider, Abstract NO ADDRESS ON FILE Social History Tobacco Use Types Packs/Day Years Used Date Smoking Tobacco: Former Cigarettes 0.5 42.3 0 04/11/1982 - 08/08/2024 Smokeless Tobacco: Never Alcohol Use Standard Drinks/Week Comments Never 0 (1 standard drink = 0.6 oz pur e alcohol) Comments Unknown Sex and Gender Information Value Date Recorded Sex Assigned at Not on file Legal Sex Female 3:03 PM CDT Gender Identity Not on file Sexual Orientation Not on file documented as of this encounter Plan of Treatment Upcoming Encounters Date Type Department Care Team (Late st Contact Info) Description 01/11/2025 12:00 PM CDT Office Visit [facility] Oncology and Hematology - [place] [address] [facility] [address] [place] [address] Ruiz Parker MD [address] [place] [address] documented as of this encounter Visit Diagnoses Not on filedocumented in this encounter
--- OUTSIDE RECORDS SUMMARY | 2024-12-27 11:57 | XMS_ITS | Clinical Summary ---
Author Organization [facility] Address [address] [place] [address] Care Team Providers Care Sql Developer Dba Name Role Phone aRffi Jean MD Primary Care Provider [phone] Source Comments [facility],non-owned Affiliates and Associated Physician Practices is amultiple site organization consisting of ambulatory clinics and hospital sitesin [place], [place], [place] and [place]. This disclosure is being madepursuant to the Care Everywhere program and may not contain all information available regarding this patient. Last updated 17.[employer] [facility] Allergies No known active allergies Medications * Be aware that medications may not be up to date on this document. Alwaysverify current medications with the patient. albuterol HFA (PROAIR HFA) 108 (90 BASE) MCG/ACT inhaler Inhale 2 Puffs by mouth every 4 hours as needed for Shortness of Breath, Wheezing or Cough 1 Inhaler 1 6 Active idqcaobjx-kmz-b m-apap (ROBITUSSIN FLU) 15-1-5-160 MG/5ML syrup Take [...] Comments Blood Pressure 110/66 02/16/2016 12:54 PM SERVICES MANAGER Pulse 84 02/16/2016 12:54 PM SERVICES MANAGER Temperature 36.7 C (98.1 F) 02/16/2016 12:54 PM SERVICES MANAGER Respiratory Rate 18 02/16/2016 12:54 PM SERVICES MANAGER Oxygen Saturation 97% 02/16/2016 12:54 PM SERVICES MANAGER Inhaled Oxygen Concentration - - Weight 56.7 kg (125 lb) 02/16/2016 12:54 PM SERVICES MANAGER Height 148.6 cm (4' 10.5) 02/16/2016 12:[address] Body Mass Index 25.68 02/16/2016 12:54 PM SERVICES MANAGER Plan of Treatment Health Maintenance Due Date [...] 02/14/1975 ZOSTER VACCINE (1 of 2) 02/14/2006 DEPRESSION SCREENING 04/11/2024 COVID-19 VACCINE (1 - 2023-2 5 season) 2024 INFLUENZA VACCINE (#1) 2024 Respiratory Syncytial Virus (RSV) Vaccine Pt: [...] / using tobacco Lifestyle No Bárbara Lo, MACHINE TOOL BUILDER-SAMPLER FIRST Insurance [facility] MEDICARE SELF PAY NO INSURANCE Member Subscriber Plan / Payer (Ef fective for All Dates) Name:Bonnie Jones Member ID:Not on file Relation to Subscriber:Not on file Name:BONNIE JONES Subscriber ID:Not on file (Home) Address: [address] [place] [phone] Payer ID:Not on file Group ID:Not on file Type:Self Pay Address: [place], [place] Care Teams Sql Developer Dba Relationship Specialty Start Date End Date Raffi Jean MD [address] [place] [address] PCP - General Family Medicine 02/01/16
--- OUTSIDE RECORDS SUMMARY | 2024-12-27 11:57 | XMS_ITS | Clinical Summary ---
Author Organization [facility] Bisi jamil Gloria Address [address] [place] [address] Care Team Providers Care Blood Bank Worker Name Role Phone Unavailable Primary Care Provider Unavailabl e Allergies No known active allergies Medications MULTIVITAMIN ORAL Take by mouth daily. Active tamoxifen (NOLVADEX) 20 mg tablet Take 1 Tablet (20 mg) by mouth daily. 90 Tablet 3 09/13/2024 Active Active Problems No known active problems Encounters Date Type Department Care Team Description 12/25/2024 External Device Data STL ABSTRACTION Provider, Abstract 12/18/2024 External Device Data ST[facility] ABSTRACTION Provider, Abstract 11/14/2024 External Device Data ST[facility] ABSTRACTION Provider, Abstract 10/24/2024 External Device Data STL ABSTRACTION Provider, Abstract 10/03/2024 Telephone [facility] Oncology and Hematology - [place] [address] [facility] [address] [place] [address] Ruiz Parker MD Prolia Injection Questions 10/02/2024 External Device Data STL ABSTRACTION Provider, Abstract from Last 3 Months Family History Medical [...] Description 01/11/2025 12:00 PM CDT Office Visit [facility] Oncology and Hematology [facility] [address] [facility] [address] [place] [address] Ruiz Parker MD [address] [facility] [address] [place] [address] Health Maintenance Due Date Last Done Comments Pre-Diabetes and Diabetes Screening 1956 DTAP/TDAP/TD VACCINES (1 - Tdap) 02/14/1975 BREAST CANCER SCREENING 1996 COLORECTAL SCREENING 02/14/2001 Colorectal Cancer Screening 02/14/2001 FIT-DNA Q 3 years 02/14/2001 FIT/FOBT Q 1 year 02/14/2001 Flex Sig/CT Colonography Q 5 years 02/14/2001 Lung Cancer Screening 02/14/2006 PNEUMOCOCCAL VACCINE 50+ YEARS (1 of 1 - PCV) 02/15/20 ZOSTER VACCINE (1 of 2) 02/14/2006 OSTEOPOROSIS SCREENING 02/14/2021 INFLUENZA VACCINE (#1) 2024 RSV VACCINE (60+ or ) (1 - 1-dose 75+ series) 02/14/2031 Insurance MEDICARE PART A AND B
[2024-12-27 13:22] LABS: Hematocrit 40.3 % (37.0-47.0); Hemoglobin 13.5 g/dL (12.0-15.0); Immature Granulocyte Percent A 0.5 % (0-0.5); Lymphocytes Absolute Auto 2.33 K/mm3 (0.9-3.2); Mean Corpuscular HGB Conc 33.5 g/dl (32-36); Mean Corpuscular Hemoglobin 31.2 pg (26-34); Mean Corpuscular Volume 93.1 fl (80-100); Nucleated Red Blood Cells Absolute Auto 0.000 K/mm3 (0.0-0.012); Nucleated Red Blood Cells Perc 0.0 % (0.0-0.2); Platelet Count Result 184 k/mm3 (150-375); Red Blood Count 4.33 M/mm3 (4.2-5.4); White Blood Count 6.6 K/mm3 (4.5-10.0)
[2024-12-27 13:37] LABS: INR 1.0; Prothrombin Time 13.6 Seconds (11.1-14.7)
[2024-12-27 13:38] LABS: Partial Thromboplastin Time 25.3 Seconds (22.3-36.8)
[2024-12-27 13:42] LABS: Alanine Aminotransferase 25 U/L (6-35); Albumin Level 4.0 g/dL (3.5-5.1); Alkaline Phosphatase 147 U/L (38-126); Anion Gap 4 mmol/L (4-12); Aspartate Amino Transferase 31 U/L (14-36); Bilirubin,Total 0.3 mg/dL (0.2-1.3); Blood Urea Nitrogen 19 mg/dL (7-17); Calcium 10.4 mg/dL (8.4-10.2); Carbon Dioxide 27 mmol/L (22-30); Chloride 108 mmol/L (98-107); Estimated Glomerular Filt Rate > 60; Glucose 107 mg/dL (65-110); Potassium 4.1 mmol/L (3.4-5.0); Sodium 139 mmol/L (137-145); Total Protein 7.8 g/dL (6.3-8.2)
== END 2024-12-27 11:34 | disposition home or self-care (01) ==
PROVIDERS: PCP Family Medicine; Visit Provider Urology
DX: N81.4 Uterovaginal prolapse, unspecified (principal); Z01.818 Encounter for other preprocedural examination
CPT/HCPCS: 36415; 80053; 85025; 85610; 85730; 86850; 86900; 86901; 87086

== ENCOUNTER 2025-01-07 00:28 | Day surgery (SDC) | payer MEDICARE, SELFPAY ==
--- NOTE | 2024-12-22 16:20 | PM.IMHP ---
H&P: HPI History of Present Illness Date/Time: 12/22/24 16:20 Chief Complaint: uterine prolapse Narrative: uterine prolapse without incontinence no stress incontinence on urodynamics Review of Systems Review of Systems: All systems reviewed & are unremarkable except as noted in HPI and below PMFSH Past Medical History Medical History Breast cancer Tobacco dependence Chronic obstructive pulmonary disease Anxiety Left breast mass Surgical History Surgical History H/O mastectomy History of section History of left breast biopsy Family History Family History Father Lung cancer Mother Lung cancer Social History Social History Social History: Surrogate medical decision maker: Ralph Jones, spouse. Code status: Full code. Smoking packs per day: 1 Smoking cigarettes per day: 20.0 Years smoked: 47 Smoking pack-years: 47.00 Smoking status: Former smoker Second hand tobacco smoke exposure: No Smoking end date: 07/23/24 Alcohol intake: never Substance use: never Substance use type: does not use Do You Feel Safe in your Home?: Yes Lack of Transportation: No Lack of Food: Never True Current Housing: I Have Housing Concerned About Future Housing: No Difficulty Paying Gas/Electric Bills: No Difficulty Paying for Meds: No Currently Unemployed: No Education: Decline to Answer Difficulty w/ Childcare or Family Care: No Living arrangements: with family Occupation/Education: retired Gender identity (if verbalized by the patient): Female Sexual Orientation (if Verbalized by the Patient): Straight or Heterosexual Spiritual care concerns: No Agree to blood products: Yes Meds Home Medications and Allergies Home Medications ?Medication ?Instructions ?Recorded ?Confirmed ?Type acetaminophen 500 mg tablet 500 mg PO Q6H PRN pain 07/30/24 09/26/24 History (Acetaminophen Pain Relief) fluconazole 150 mg tablet 150 mg PO Q72H #2 tabs 09/26/24 09/26/24 Rx metronidazole 500 mg tablet 500 mg PO Q12H #14 tabs 09/26/24 09/26/24 Rx tamoxifen 20 mg tablet 20 mg PO 09/26/24 09/26/24 History Allergies Allergy/AdvReac Type Severity Reaction Status Date / Time No Known Allergies Allergy Unknown Verified 09/26/24 09:38 Exam Narrative: cervix at +2 Assessment and Plan Assessment and plan (1) Uterine prolapse: Code(s): N81.4 - Uterovaginal prolapse, unspecified Status: Acute Assessment and Plan: plan for robotic sacral colpopexy
[2024-12-27 11:55] VITALS: BP 132/72; PULSE 68; RESP 16; TEMP 36.4; O2SAT 98; BMI 29.7
--- NOTE | 2024-12-27 12:28 | PC.NURSE ---
[facility] has started construction of its new state of the art ER which will open Spring 2026. With this, we anticipate parking may be a challenge for some our surgical patients and families. Parking spaces are limited but are available for all Surgical, obstetrics, and ER patients sharing this lot. If you arrive and find you are having a hard time finding a parking space, please note that we understand the challenges, please drive around the hospital and park near Hospital Entrance 1. When you enter this entrance, you can ask a volunteer to direct or take you back to the surgical waiting area to check in. We appreciate everyone?s understanding of these expected challenges while we build for your future. Report to the Outpatient Waiting Room, entrance under the green pavilion located off [address], at time ___6:00AM__ on date __01/07/25___. Planned Procedure Time: __7:30AM____.? Time changes happen often and if your time is changed the preop area will call you the afternoon before. - You and your visitor will be asked to self-screen and do not enter if you have any COVID symptoms. Please call surgeon if you need to reschedule. - A mask is optional within the hospital at this time. Patients may have clear liquids (water, carbonated beverages, clear teas, apple juice) until 3 hours prior to surgery (4:30AM) with a maximum of 20 ounces. - No food from midnight until time of surgery and no smoking, or chewing tobacco (or any form of nicotine). No chewing gum, candy or mints. Take only the following medications with a SIP of water on the morning of surgery: ____NONE DO NOT STOP ANY OF YOUR OTHER PRESCRIPTION MEDICATIONS PRIOR TO SURGERY EXCEPT THE FOLLOWING Medications to discontinue per physician ___HOLD ALL VITAMINS/SUPPLEMENTS 7 DAYS PRE-OP PER DR MITCHELL Date to take last dose 12/30/24 Please no make-up, nail lithuanian, hairspray, perfume, deodorant, or body powder the day of surgery.? No jewelry (including any body piercings) or valuables the day of surgery, leave them at home.? Please take a shower or bath the night before, or the morning of, surgery with an antibacterial soap.? Wear comfortable, loose fitting clothing.? - Jewelry must be removed prior to entering the operating room.? Rings and piercings that are not removed may be cut off. - The hospital will not accept responsibility for valuables.? - Please leave all valuables, including medications, at home the day of surgery. If you are going home after surgery, a licensed oil truck driver must drive you home.? - NO public transportation without another adult if you receive anesthesia. - We recommend that an adult stay with you for 24 hours following discharge. - We also recommend that you do not drive, make important decision, drink alcoholic beverages, or take any drugs that were not prescribed by your health care provider for at least 24 hours after your discharge time. Follow any additional instructions given to you from your surgeon. Telephone instructions given to ___PATIENT & HUSBAND and asked if any additional questions and then verbalized understanding. Patient advised to call surgeon office or pre surgery nurse liaison [phone] if any additional questions.
--- NOTE | 2025-01-06 08:34 | P.HP_ITS ---
H&P: HPI History of Present Illness Date/Time: 01/06/25 08:34 Chief Complaint: POP Narrative: Uterine prolapse without stress incontinence Review of Systems Review of Systems: All systems reviewed & are unremarkable except as noted in HPI and below PMFSH Past Medical History Medical History (Updated 01/06/25 @ 08:35 by Osvaldo Quinn MD) Uterine prolapse Breast cancer Tobacco dependence Chronic obstructive pulmonary disease Anxiety Left breast mass Surgical History Surgical History H/O mastectomy History of section History of left breast biopsy Family History Family History Father Lung cancer Mother Lung cancer Social History Social History Social History: Surrogate medical decision maker: Ralph Robert, spouse. Code status: Full code. Smoking packs per day: 1 Smoking cigarettes per day: 20.0 Years smoked: 45 Smoking pack-years: 45.00 Smoking status: Former smoker Tobacco type: cigarettes Second hand tobacco smoke exposure: No Smoking end date: 07/10/24 Additional smoking assessment comments: TAPERED DOWN TO 1/2 PACK/DAY IN LAST FEW YEARS Alcohol intake: never Substance use: never Substance use type: does not use Do You Feel Safe in your Home?: Yes Lack of Transportation: No Lack of Food: Never True Current Housing: I Have Housing Concerned About Future Housing: No Difficulty Paying Gas/Electric Bills: No Difficulty Paying for Meds: No Currently Unemployed: No Education: Decline to Answer Difficulty w/ Childcare or Family Care: No Living arrangements: with family [facility] Occupation/Education: retired Gender identity (if verbalized by the patient): Female Sexual Orientation (if Verbalized by the Patient): Straight or Heterosexual Spiritual care concerns: No Agree to blood products: Yes Meds Home Medications and Allergies Home Medications ?Medication ?Instructions ?Recorded ?Confirmed ?Type acetaminophen 500 mg tablet 1,000 mg PO Q6H PRN pain 0 07/30/24 12/27/24 History (Acetaminophen Pain Relief) tamoxifen 20 mg tablet 20 mg PO DAILY 09/26/2412/10 History albuterol sulfate 90 mcg/actuation 2 puff inhalation Q 4-6H PRN 12/27/24 12/27/24 History aerosol inhaler shortness of breath or wheez ing calcium carb-ergocalciferol (vit 1 tablet PO DAILY 12/27/24 History D2) 600 mg calcium-200 unit tablet Allergies Allergy/AdvReac Type Severity Reaction Status Date / Time No Known Allergies Allergy Unknown Verified 12/27/24 11:52 Exam Narrative: apex at +2 Assessment and Plan Assessment and plan (1) Uterine prolapse: Code(s): N81.4 - Uterovaginal prolapse, unspecified Status: Acute Assessment and Plan: Robotic Sacral Colpopexy
[2025-01-07] VITALS (13 sets, daily range): BP systolic 90–147; BP diastolic 49–85; PULSE 79–94; RESP 12–18; TEMP 36.4–37.1; O2SAT 95–100
--- OUTSIDE RECORDS SUMMARY | 2025-01-07 00:30 | XMS_ITS | Clinical Summary ---
Author Organization [facility] Bisi jamil lGoria Address [address] [facility] [place] [address] Care Team Providers Care Can Vacuum Tester Name Role Phone Unavailable Primary Care Provider Unavailabl e Allergies No known active allergies Medications MULTIVITAMIN ORAL Take by mouth daily. Active tamoxifen (NOLVADEX) 20 mg tablet Take 1 Tablet (20 mg) by mouth daily. 90 Tablet 3 09/13/2024 Active Active Problems No known active problems Encounters Date Type Department Care Team Description 12/28/2024 Telephone [facility] Oncology and Hematology - [place] [address] [facility] [address] [place] [address] Ruiz Parker MD Rash 12/25/2024 External Device Data STL ABSTRACTION Provider, [...] Office Visit [facility] Oncology and Hematology [facility] [address] [facility] [address] [place] [address] Ruiz Parker MD [address] [facility] [address] [place] [address] Health Maintenance Due Date Last [...]
--- OUTSIDE RECORDS SUMMARY | 2025-01-07 00:30 | XMS_ITS | Clinical Summary ---
Author Organization [facility] [employer] Address [address] [facility] [place] [address] Care Team Providers Care Installation Technician Name Role Phone Raffi Jean MD Primary Care Provider [phone] Source Comments [facility] [employer],non-owned Affiliates and Associated Physician Practices is amultiple site organization consisting of ambulatory clinics and hospital sitesin [place], [place], [place] and [place]. This disclosure is being madepursuant to the Care Everywhere program and may not contain all information available regarding this patient. Last updated [email or web address] Allergies No known active allergies Medications * Be aware that medications may not be up to date on this document. Alwaysverify current medications with the patient. albuterol HFA (PROAIR HFA) 108 (90 BASE) MCG/ACT inhaler Inhale 2 Puffs by mouth every 4 hours as needed for Shortness of Breath, Wheezing or Cough 1 Inhaler 1 6 Active vsvjcacvx-rpq-u m-apap (ROBITUSSIN FLU) 15-1-5-160 MG/5ML syrup Take [...] Comments Blood Pressure 110/66 02/16/2016 12:54 PM [employer] [employer] [facility] Pulse 84 02/16/2016 12:54 PM [employer] [facility] Temperature 36.7 C (98.1 F) 02/16/2016 12:54 PM [employer] [facility] Respiratory Rate 18 02/16/2016 12:54 PM [employer] [facility] Oxygen Saturation 97% 02/16/2016 12:54 PM [employer] [facility] Inhaled Oxygen Concentration - - Weight 56.7 kg (125 lb) 02/16/2016 12:54 PM [employer] Height 148.6 cm (4' 10.5) 02/16/2016 12:[address] Body Mass Index 25.68 02/16/2016 12:54 PM [employer] [facility] Plan of Treatment Health Maintenance Due Date [...] / using tobacco Lifestyle No Bárbara Lo, [employer]ANT Insurance [facility] MEDICARE SELF PAY NO INSURANCE Member Subscriber Plan / Payer (Ef fective for All Dates) Name:Bonnie Jones Member ID:Not on file Relation to Subscriber:Not on file Name:BONNIE JONES Subscriber ID:Not on file (Home) Address: [address] [place] [id number] Payer ID:Not on file Group ID:Not on file Type:Self Pay Address: [place], [place] Care Teams Installation Technician Relationship Specialty Start Date End Date Raffi Jean MD [address] [place] [address] PCP - General Family Medicine 02/01/16
--- NOTE | 2025-01-07 05:19 | PM.IMHP ---
H&P: HPI History of Present Illness Date/Time: 01/07/25 05:19 Chief Complaint: pelvic organ prolapse Narrative: 69 yo female who presents for robotic assisted TLH/BSO with sacrocolpopexy for management of pelvic organ prolapse. Review of Systems Cardiovascular: Cardiovascular: Denies chest pain, Denies leg edema, Denies palpitations, Denies dyspnea and Denies dyspnea on exertion Respiratory: Respiratory: Denies cough, Denies dyspnea and Denies dyspnea on exertion Gastrointestinal: Gastrointestinal: Denies abdominal pain, Denies constipation, Denies diarrhea, Denies nausea and Denies vomiting Genitourinary: Genitourinary: Denies hematuria, Denies urinary frequency, Denies dysuria, Denies pelvic pain, Denies urinary incontinence and Denies vaginal discharge Neurologic: Reports system reviewed and no additional complaints, except as documented Psychiatric: Psychiatric: Reports no additional psychiatric complaints Endocrine: Endocrine: Denies palpitations PMFSH Past Medical History Medical History (Updated 01/06/25 @ 08:35 by Osvaldo Quinn MD) Uterine prolapse Breast cancer Tobacco dependence Chronic obstructive pulmonary disease Anxiety Left breast mass Surgical History Surgical History H/O mastectomy History of section History of left breast biopsy Family History Family History Father Lung cancer Mother Lung cancer Social History Social History Social History: Surrogate medical decision maker: Ralph Jones, spouse. Code status: Full code. Smoking packs per day: 1 Smoking cigarettes per day: 20.0 Years smoked: 47 Smoking pack-years: 47.00 Smoking status: Former smoker Second hand tobacco smoke exposure: No Smoking end date: 07/23/24 Alcohol intake: never Substance use: never Substance use type: does not use Do You Feel Safe in your Home?: Yes Lack of Transportation: No Lack of Food: Never True Current Housing: I Have Housing Concerned About Future Housing: No Difficulty Paying Gas/Electric Bills: No Difficulty Paying for Meds: No Currently Unemployed: No Education: Decline to Answer Difficulty w/ Childcare or Family Care: No Living arrangements: with family Occupation/Education: retired Gender identity (if verbalized by the patient): Female Sexual Orientation (if Verbalized by the Patient): Straight or Heterosexual Spiritual care concerns: No Agree to blood products: Yes Meds Home Medications and Allergies Home Medications ?Medication ?Instructions ?Recorded ?Confirmed ?Type acetaminophen 500 mg tablet 1,000 mg PO Q6H PRN pain 07/30/24 12/27/24 History (Acetaminophen Pain Relief) tamoxifen 20 mg tablet 20 mg PO DAILY 09/26/24 12/27/24 History albuterol sulfate 90 mcg/actuation 2 puff inhalation Q4-6H PRN 12/27/24 12/27/24 History aerosol inhaler shortness of breath or wheezing calcium carb-ergocalciferol (vit 1 tablet PO DAILY 12/27/24 12/27/24 History D2) 600 mg calcium-200 unit tablet Allergies Allergy/AdvReac Type Severity Reaction Status Date / Time No Known Allergies Allergy Unknown Verified 12/27/24 11:52 Exam Const: General: no acute distress Eyes: EOM: EOMs intact bilaterally Neck: Neck: supple Thyroid: thyroid normal Chest: Breast/axilla inspection: normal inspection of the breasts Breast/axilla palpation: normal palpation of the breasts, normal palpation of the axillae and no axillary lymphadenopathy Resp: Effort & Inspection: normal respiratory effort Auscultation: clear to auscultation bilaterally Cardio: Rate: regular rate Rhythm: regular rhythm GI: Inspection: non-distended GI Palp: Yes Soft to palpation, No Tenderness to palpation present (GI) and No Guarding due to palpation present (GI) Auscultation: normal bowel sounds : General: No bladder normal to palpation External Female Exam: normal external appearance Speculum Exam - Vagina: normal vaginal discharge and No vaginal bleeding Speculum Exam - Cervix: nontender Bimanual exam- vagina & uterus: No bladder normal to palpation and No Cervical tenderness present Bimanual Exam- Adnexa, other: rectocele, cystocele and vaginal apex descent OB/external & speculum: No vaginal bleeding Skin: General skin exam: normal color and no rashes or lesions noted Neuro: Cognition (Neuro): normal cognition Speech: normal speech Extrem: General: normal to inspection and no edema Psych: Mental Status: mental status grossly normal Affect: normal affect Assessment and Plan Assessment and plan (1) Uterine prolapse: Code(s): N81.4 - Uterovaginal prolapse, unspecified Status: Acute Assessment and Plan: patient found to have complete procidentia on physical exam Patient has noticed visible bulge that is reducible Reports some difficulty with completely emptying her bladder Pelvic organ prolapse discussed at length, patient given a printed handout discussing pelvic organ prolapse Management options reviewed including vaginal pessary and surgery will proceed with robotic TLH/BSO with sacrocolpopexy
--- NOTE | 2025-01-07 06:59 | WPDHPUPDATE1 ---
History and Physical Update Update Date/Time: 01/07/25 06:59 History and Physical has been reviewed, including an updated exam of the patient. There are NO changes in the patient's condition. Risks, benefits, and alternatives have been discussed and questions answered. Patient agrees to proceed with procedure. will proceed with robotic TLH/BSO with sacrocolpopexy
[2025-01-07] MEDS: LACTATED RINGERS 1,000 ML 30 ML IV CONT ×2 (07:15→10:25)
[2025-01-07] MEDS: ACETAMINOPHEN 500 MG TABLET 1000 MG PO (07:15)
--- NOTE | 2025-01-07 07:17 | WPDHPUPDATE1 ---
History and Physical Update Update Date/Time: 01/07/25 07:17 History and Physical has been reviewed, including an updated exam of the patient. There are NO changes in the patient's condition. Risks, benefits, and alternatives have been discussed and questions answered. Patient agrees to proceed with procedure.
--- NOTE | 2025-01-07 07:25 | WPDANESEPPF ---
Anes - Initial Pre Proc Eval Procedure: Operation Date: 01/07/25 07:30 Proposed Procedures p Robotic Sacrocolpopexy, Urethral Sling - Osvaldo Quinn MD s Robotic Assisted Laparoscopic Supracervical Hysterectomy with Bilateral Salpingo Oophorectomy - Devan Rosado MD Date/Time: 01/07/25 07:25 Surgeon: Osvaldo Quinn MD Pre Op Diagnosis: complete uterovag prolapse, stress incont Patient Data Age: 69 Gender: F Height: 1.47 m Weight: 64 kg Last Vital Signs Temp 97.6 F 12/27/24 11:55 Pulse 68 12/27/24 11:55 Resp 16 12/27/24 11:55 BP 132/72 12/27/24 11:55 Pulse Ox 98 12/27/24 11:55 O2 Del Method Room Air 12/27/24 11:55 Allergies Allergy/AdvReac Type Severity Reaction Status Date / Time No Known Allergies Allergy Unknown Verified 12/27/24 11:52 Home Medications ?Medication ?Instructions ?Recorded ?Confirmed ?Type acetaminophen 500 mg tablet 1,000 mg PO Q6H PRN pain 07/30/24 12/27/24 History (Acetaminophen Pain Relief) tamoxifen 20 mg tablet 20 mg PO DAILY 09/26/24 12/27/24 History albuterol sulfate 90 mcg/actuation 2 puff inhalation Q4-6H PRN 12/27/24 12/27/24 History aerosol inhaler shortness of breath or wheezing calcium carb-ergocalciferol (vit 1 tablet PO DAILY 12/27/24 12/27/24 History D2) 600 mg calcium-200 unit tablet Patient hx anesthesia problems: none Family hx anesthesia problems: none Results Review: All pre-operative results and documents have been reviewed as part of the pre-operative evaluation. [facility] Past Medical History Medical History (Updated 01/06/25 @ 08:35 by Osvaldo Quinn MD) Uterine prolapse Breast cancer Tobacco dependence Chronic obstructive pulmonary disease Anxiety Left breast mass Surgical History Surgical History H/O mastectomy History of section History of left breast biopsy Family History Family History Father Lung cancer Mother Lung cancer Social History Social History Social History: Surrogate medical decision maker: Ralph Jones, spouse. Code status: Full code. Smoking packs per day: 1 Smoking cigarettes per day: 20.0 Years smoked: 47 Smoking pack-years: 47.00 Smoking status: Former smoker Second hand tobacco smoke exposure: No Smoking end date: 07/23/24 Alcohol intake: never Substance use: never Substance use type: does not use Do You Feel Safe in your Home?: Yes Lack of Transportation: No Lack of Food: Never True Current Housing: I Have Housing Concerned About Future Housing: No Difficulty Paying Gas/Electric Bills: No Difficulty Paying for Meds: No Currently Unemployed: No Education: Decline to Answer Difficulty w/ Childcare or Family Care: No Living arrangements: with family Occupation/Education: retired Gender identity (if verbalized by the patient): Female Sexual Orientation (if Verbalized by the Patient): Straight or Heterosexual Spiritual care concerns: No Agree to blood products: Yes Anes - Eval Final PreProcedure Day of Procedure 01/07/25 07:25 Patient weight: obese Heart: regular rate and rhythm Lungs: clear to auscultation Airway: Mallampati scale class II Neurological: alert and oriented Last oral intake: >/= 8 hours ASA classification: III Emergent: no Anesthetic plan: proceed Anesthesia type and monitoring: general ETT and standard monitoring Results Review: All pre-operative results and documents have been reviewed as part of the pre-operative evaluation. Informed Consent: The patient's anesthetic plan and its attendant risks and benefits were discussed with the patient/family/POA. Questions were solicited and answers provided to the satisfaction of the patient/family/POA.
[2025-01-07] MEDS: ceFAZolin 2 GM in SODIUM CHLORIDE 0.9% IV 50 ML 100 ML IVPB (07:35)
[2025-01-07] MEDS: metroNIDAZOLE 500 MG/ISO 100ML 500 MG/100 ML BAG 100 MG IVPB ×3 (07:57→23:50)
[2025-01-07] MEDS: BUPIVACAINE/EPINEPHRINE 0.5% 50 ML VIAL 30 ML INFILTRATE (08:19)
--- NOTE | 2025-01-07 08:31 | W.PM.PROC2 ---
Procedure Note - Detailed Date of Procedure 01/07/25 Pre-op Diagnosis uterine prolapse Post-op Diagnosis Same Procedure Performed robotic assisted total laparoscopic supracervical hysterectomy and bilateral salpingoophorectomy and sacrocolpopexy Surgeon Devan Rosado MD Anesthesia General Indications uterine prolapse Description of Procedure After the patient was appropriately consented she was taken to the operating room where she was transferred to the table in a dorsal supine position. General anesthesia was then induced with endotracheal intubation. The patient was transferred to a dorsal lithotomy position using adjustable yellow-fin stirrups. Her position was adjusted for appropriate support of her lower back and lower extremities. The patient was prepped and draped. A transurethral russo catheter was place. A speculum was placed to help visualize the cervix. The anterior lip of the cervix was grasped with a tenaculum. A rumie manipulator was then placed in the uterus. Attention was then turned to the abdomen. Dr. Quinn proceeded with laparoscopic port placement and abdominal entry. The robot was then docked. The left round ligament was divided and the pararectal and paravesicle spaces developed, identifying the course of the ureter. The infundibulopelvic ligaments were skeletonized, triply coagulated and then transected with monopolar joi away from the course of the ureter. The posterior aspect of the broad ligament was then skeletonized down to the level of the internal cervical os, mobilizing the ureter laterally. The bladder flap was then created sharply. The ipsilateral uterine artery was skeletonized, bipolar cauterized and transected. A similar procedure was performed on the contralateral side, developing the pelvic spaces, coagulating and dividing the IP away from the ureter, completing the bladder flap, and skeletonizing, ligating, and dividing the uterine artery on this side. The Roberto ring was identified to help delineate the the borders of the cervix. A circumferential colpotomy using monopolar current in the mid cervix. The cervix was completely transected and the remaining cervical stump was coagulated with monopolar cautery. The uterine body was bi-valved. The uterus, ovaries, and fallopian tubes were placed in laparoscopic endopouch for later removal by Dr. Quinn. At this time, my portion of the procedure was completed. Please see Dr. Quinn's dictation for the remainder of the procedure. Estimated Blood Loss 10 Drains No Packing No Pathology Yes (uterus, fallopian tubes, ovaries) Complications No immediate complications Disposition PACU [facility] Billing Surgery - Charge Forward: Surgery Billing
[2025-01-07] MEDS: KETOROLAC 15 MG/ML VIAL (*BKC) IV PUSH ×2 (10:06→15:46)
--- NOTE | 2025-01-07 10:07 | S_PTH ---
PATIENT: Bonnie Jones LOC: [facility] U#:[id number] AGE/SX: 69/F ROOM: RE01/07/[address]: Osvaldo Quinn MD : [id number] BED: DIS: 01/08/2025 SPEC #: [id number] RECD: 01/07/25 10:57 STATUS: DEANDRE REQ #: [id number] YAMILKA: 01/07/25 10:[address]: Devan Rosado DEPT: [facility] Surgical RECD BY: Bee Robles ENTERED: 01/07/25 10:57 SP TYPE: Surgical OTHR DR: Luana Mac, MD Osvaldo Quinn MD Tissues: A - Uterus Procedures: Hematoxylin and Eosin Stain Gross and Microscopic Level 5
--- NOTE | 2025-01-07 10:31 | P.OP_ITS ---
Procedure Note - Detailed Date of Procedure 01/07/25 Pre-op Diagnosis complete uterovag prolapse Post-op Diagnosis Same Procedure Performed Robotic assisted laparoscopic sacral colpopexy Cystoscopy Surgeon Osvaldo Quinn MD Anesthesia General Indications A woman with uterine prolapse as well as stress incontinence. She desires surgical correction. She is here for the above. She understands risks of bleeding, infection, diskitis, damage to surrounding organs, bowel injury, bowel obstruction, mesh related complications including exposure and extrusion, postoperative voiding dysfunction including incontinence and retention, need for ancillary procedures, dyspareunia, recurrence of prolapse, and other perioperative intraoperative postoperative complications. She agrees to proceed. She has no preoperative stress incontinence by history or urodynamics. We will not be performing a stress incontinence operation. She understands the risks of postoperative stress incontinence Findings See below Description of Procedure She was correctly identified. Informed consent obtained. She from the operating room. She was given general anesthesia. She was given appropriate perioperative antibiotics. She was placed a low lithotomy position. Pressure points were padded. A time-out performed. I marked out the skin 3 fingerbreadths cephalad to the umbilicus. I anesthetized the skin. I incised the skin. I dissected down to the fascia. I grasped the fascia with Kash clamps. I entered the fascia sharply in a Kessler type technique. I placed sutures for later fascial closure. I placed a midline trocar. I examined the abdomen. There is no sign of any injury. Under direct vision I placed 2 additional trocars in the right upper quadrant and 2 additional trocars the left upper quadrant. She was placed in steep Trendelenburg. The robot was docked. Her primary care nurse practitioner completed their portion of the procedure. Please see that operative report for details. I then sat at the console. Of note she had significant amount of bowels. I had to use a laparotomy sponge to retract the bowels. I then removed this at the completion of the case. I mobilized colon using sharp dissection to be able to get a good view of the pelvis. With the Sizer in the vagina created plane on the anterior and posterior vaginal wall. Great care was taken not to injure underlying organs. I took great care not to injure the vagina, bladder, or rectum. I introduced the mesh into the abdomen. I sewed the anterior leaflet of mesh on the anterior vaginal wall. I sewed the posterior leaflet of mesh on the posterior vaginal wall. This was done with several sutures of 2 0 [place]. I reflected the colon laterally. I opened the posterior peritoneum over the sacral promontory. She had significant retroperitoneal fat in a thick presacral fat pad. I carried this into the cul-de-sac. I freed up the edges for later retroperitonealization. I located the anterior longitudinal ligament the sacrum. I cleaned off all fatty tissues. I then tensioned my mesh appropriately. I did a vaginal exam the bedside. I assured prolapse reduction without undue tension. I then sewed the proximal leaflet of mesh onto the anterior longitudinal ligament of the sacrum with 2 sutures of 2 0 [place]-Gian. I then used a 2 0 Monocryl to completely and meticulously retroperitonealized all mesh. I allowed the colon to go back to its normal anatomic location. There is no sign of any impingement. The specimen was then removed. All ports removed. Fascia was tied down. Skin was closed with Monocryl and surgical glue. I then performed cystoscopy. There was no tumors or surgical artifact. Both ureters were seen to excrete clear yellow urine. There is no surgical artifact in the bladder or urethra. I cut the excess sling material. Close incision with glue. She was awakened and transferred to PACU in stable condition. Implants Sacral colpopexy mesh Estimated Blood Loss 30 Packing No Pathology None sent Complications No immediate complications Condition Stable Disposition PACU
[2025-01-07] MEDS: fentaNYL CITRATE INJ (*CRX) 100 MCG/2 ML VIAL 25 MCG IV PUSH ×2 (11:00→11:31)
--- NOTE | 2025-01-07 11:50 | OBPPTRN ---
Patient transferred to post room #287 via stretcher. Oriented to unit, room,and information board Patient verbalizes understanding.
[2025-01-07] MEDS: KCL 20 MEQ/D5/0.45% SOD CHL 1,000 ML 100 ML IV CONT (12:35)
[2025-01-07] MEDS: ceFAZolin 1 GM in SODIUM CHLORIDE 0.9% IV 50 ML 100 ML IVPB ×2 (15:05→23:07)
[2025-01-07] MEDS: DOCUSATE SODIUM 100 MG CAPSULE PO (15:06)
[2025-01-07] MEDS: ACETAMINOPHEN 325 MG TABLET 650 MG PO (15:45)
[2025-01-07] MEDS: HYDROcodone/acetaminophen (*CRX) 5-325 MG TABLET 1 TAB PO (19:20)
[2025-01-08 04:30] VITALS: BP 113/61; PULSE 78; RESP 16; TEMP 36.8; O2SAT 96
[2025-01-08] MEDS: ACETAMINOPHEN 325 MG TABLET 650 MG PO ×2 (04:30→08:52)
[2025-01-08 07:55] VITALS: BP 109/55; PULSE 89; RESP 18; TEMP 36.7; O2SAT 95
--- NOTE | 2025-01-08 08:20 | P.DS_ITS ---
DS: Admitting Diagnosis Discharge Date 01/08/25 Admitting Diagnosis uterine prolapse DS: Discharge Diagnosis Discharge Diagnosis (1) History of hysterectomy: Code(s): Z90.710 - Acquired absence of both cervix and uterus Status: Acute DS: Summary Hospital Course Hospital Course: 69 yo female who underwent robotic assisted TLH/BSO with sacrocolpopexy for uterine prolapse. The procedure and her post-op course were uncomplicated. She was discharged home on POD #1. Time spent discussing smoking cessation with patient: 3 to 10 minutes Status at Discharge Overall status at discharge: patient is progressing back to baseline Time Spent with Patient Time attestation: Total time spent providing and/or coordinating discharge services: Time spent: Less than 30 minutes Exam Const: General: comfortable and no acute distress Limitations: no limitations Resp: Effort & Inspection: normal respiratory effort Auscultation: clear to auscultation bilaterally Cardio: Rate: regular rate Rhythm: regular rhythm GI: Inspection: non-distended GI Palp: Yes Soft to palpation, Yes Tenderness to palpation present (GI) (milder tenderness to deep palpation) and No Guarding due to palpation present (GI) Auscultation: normal bowel sounds Other: incisions C/D/I covered with dermabond Urinary Catheter: Urinary Catheter: urine clear Skin: General skin exam: normal color Extrem: General: normal to inspection Psych: Mental Status: mental status grossly normal Affect: normal affect DS: Data Data Completed and Pending Pending studies at discharge: Pending at discharge 01/07/25 10:07 Surgical [PTH] Routine Discharge Plan Discharge Patient Disposition: Home Discharge Instructions: No lifting >20lb, exercise for 6 weeks No tub bath or pool for 2 weeks no intercourse 6 weeks Patient Language: Belarusian Stand Alone Forms: General Discharge Instructions Follow-up/Referrals: Osvaldo Quinn MD [Physician, Urology] Referral Note: 6 weeks as scheduled Discharge Medications: New hydrocodone-acetaminophen 5-325 mg tablet 1 tablet PO Q6H PRN (Reason: pain) Qty: 20 0RF docusate sodium [Colace] 100 mg capsule 100 mg PO BID Qty: 40 0RF Continued tamoxifen 20 mg tablet 20 mg PO DAILY acetaminophen [Acetaminophen Pain Relief] 500 mg tablet 1,000 mg PO Q6H PRN (Reason: pain) calcium carbonate-vitamin D2 600 mg calcium- 200 unit tablet 1 tablet PO DAILY albuterol sulfate 90 mcg/actuation HFA aerosol inhaler 2 puff INHALATION Q4-6H PRN (Reason: shortness of breath or wheezing)
[2025-01-08] MEDS: CEPHALEXIN 500 MG CAPSULE PO (08:52)
[2025-01-08] MEDS: metroNIDAZOLE 500 MG/ISO 100ML 500 MG/100 ML BAG 100 MG IVPB (08:52)
[2025-01-08] MEDS: DOCUSATE SODIUM 100 MG CAPSULE PO (08:53)
[2025-01-08] MEDS: KCL 20 MEQ/D5/0.45% SOD CHL 1,000 ML 125 ML IV CONT (08:55)
[2025-01-08] MEDS: ENOXAPARIN 30 MG/0.3 ML SYRINGE SUB-Q (09:04)
--- NOTE | 2025-01-08 10:31 | PC.NURSE ---
[address] Harris with urology about residual urine after bladder scan (214). No new orders at this time, ok to discharge patient at this time.
--- NOTE | 2025-01-08 14:50 | WPDANESPN ---
Anes - Prog Note Post-Op Date/Time: 01/08/25 14:50 Cardiovascular status: normal Respiratory status: normal Airway patency: baseline Mental status: baseline Vital Signs: Last Vital Signs Temp 36.7 C 01/08/25 07:55 Pulse 89 01/08/25 07:55 Resp 18 01/08/25 07:55 BP 109/55 L 01/08/25 07:55 Pulse Ox 95 01/08/25 07:55 O2 Del Method Room Air 01/08/25 07:00 O2 Flow Rate 6 01/07/25 11:10 Pain Score (VAS): 2 I/O: Intake & Output 01/07/25 01/08/25 01/08/25 23:59 07:59 15:59 Intake Total 630 1650 Output Total 710 850 Balance -80 800 Patient Feedback: Patient satisfied with anesthetic care.
== END 2025-01-08 11:42 | disposition home or self-care (01) ==
LOC: ANHSURGERY 08:17 → ANHOB2 11:49
PROVIDERS: Student in an Organized Health Care Education/Training Program; PCP Family Medicine; Visit Provider Urology
PROC: (CPT 57425; principal; 2025-01-07 07:30)
PROC: (CPT 58542; 2025-01-07 07:30)
DX: N81.3 Complete uterovaginal prolapse (principal); J44.9 Chronic obstructive pulmonary disease, unspecified; F41.9 Anxiety disorder, unspecified; E66.9 Obesity, unspecified; Z68.29 Body mass index [BMI] 29.0-29.9, adult; Z79.810 Long term (current) use of selective estrogen receptor modulators (SERMs); Z79.51 Long term (current) use of inhaled steroids; Z98.890 Other specified postprocedural states; Z87.891 Personal history of nicotine dependence; Z85.3 Personal history of malignant neoplasm of breast; Z80.1 Family history of malignant neoplasm of trachea, bronchus and lung
CPT/HCPCS: 58542; 57425; S2900 ×2; 88307; 99199; J0690; A9270; C1781; J1100; J1171; J1650; J1836; J1885; J2003; J2250; J2405; J2704; J3010; J3480; J7030; J7120

== ENCOUNTER 2025-01-11 11:49 | Outpatient (CLI) | payer MEDICARE, SELFPAY ==
[2025-01-11 12:18] LABS: Hematocrit 37.5 % (37.0-47.0); Hemoglobin 12.4 g/dL (12.0-15.0); Immature Granulocyte Percent A 0.5 % (0-0.5); Lymphocytes Absolute Auto 2.09 K/mm3 (0.9-3.2); Mean Corpuscular HGB Conc 33.1 g/dl (32-36); Mean Corpuscular Hemoglobin 31.6 pg (26-34); Mean Corpuscular Volume 95.7 fl (80-100); Nucleated Red Blood Cells Absolute Auto 0.000 K/mm3 (0.0-0.012); Nucleated Red Blood Cells Perc 0.0 % (0.0-0.2); Platelet Count Result 188 k/mm3 (150-375); Red Blood Count 3.92 M/mm3 (4.2-5.4); White Blood Count 6.2 K/mm3 (4.5-10.0)
[2025-01-11 12:19] LABS: Blood Urea Nitrogen 12 mg/dL (8-26); Carbon Dioxide 25 mmol/L (22-30); Chloride 106 mmol/L (98-109); Estimated Glomerular Filt Rate > 60; Glucose 137 mg/dL (70-105); Ionized Calcium (POC) 1.46 mmol/L (1.11-1.31); Potassium 3.7 mmol/L (3.5-4.9); Sodium 141 mmol/L (138-146)
== END 2025-01-11 11:50 | disposition home or self-care (01) ==
LOC: ANHLAB 11:50
PROVIDERS: PCP Family Medicine; Visit Provider Internal Medicine Hematology & Oncology
DX: C50.919 Malignant neoplasm of unspecified site of unspecified female breast (principal)
CPT/HCPCS: 36415; 80047; 85025

== ENCOUNTER 2025-02-18 19:17 | Inpatient (IN) | payer MEDICARE, SELFPAY ==
--- NOTE | ~2025-02-18 | XR_ITS ---
EXAMINATION: XR chest 1V portable COMPARISON: No comparisons available. HISTORY: sob with new o2 requirement FINDINGS: Mild pulmonary venous congestion. No pneumothorax. Mild cardiomegaly. Mediastinal and hilar contours are within normal limits. Bony thorax no acute abnormality. Miscellaneous: None Impression: Mild CHF Reviewed, dictated and finalized at location P. ICAL RESIDENT Impression: Mild CHF
--- NOTE | ~2025-02-18 | CT_ITS ---
EXAMINATION: CT abdomen pelvis w con DATE: 02/18/2025 23:04 INDICATION: Left upper quadrant abdominal pain. TECHNIQUE: Computed tomography (CT) of the abdomen and pelvis was performed with 100 mL Omnipaque 350 intravenous contrast. Automated exposure control and iterative reconstruction technique were employed. The dose-length product was 416.05 mGy-cm. COMPARISON: CT abdomen and pelvis 02/01/2011 FINDINGS: The visualized portions of the lung bases demonstrate mild atelectasis. No pleural effusion. The heart size is normal. There are coronary artery calcifications. No pericardial effusion. There is diffuse hepatic steatosis. The gallbladder, spleen, pancreas, and adrenal glands are normal. There is cortical thinning of the kidneys. There are 4 stones in right kidney measuring up to 10 mm . There is a 5 mm cyst in left kidney. There is asymmetric edema around left kidney. There is urothelial enhancement in the ureters, consistent with pyelitis. There are no dilated loops of bowel. The appendix is normal. There are no pathologically enlarged lymph nodes. There is no free intraperitoneal fluid. There is mild thoracic and lumbar spondylosis. IMPRESSION: 1. Bilateral pyelitis. Reviewed, dictated and finalized at location E. LANE DESIGNER IMPRESSION: 1. Bilateral pyelitis.
--- NOTE | ~2025-02-18 | XR_ITS ---
EXAMINATION: XR chest 1V portable COMPARISON: No comparisons available. HISTORY: reassess given ongoing hypoxia FINDINGS: Mild pulmonary venous congestion. Small basilar infiltrates. No pneumothorax. Moderate cardiomegaly. Mediastinal and hilar contours are within normal limits. Bony thorax no acute abnormality. Miscellaneous: None Impression: CHF Reviewed, dictated and finalized at location P. ATION DEPARTMENT CHAIR Impression: CHF
--- NOTE | ~2025-02-18 | NM_ITS ---
EXAM/PROCEDURE: NM lung vent and perfusion HISTORY: rule out pe, new o2 requirement with tachycardia COMPARISON: None available. TECHNIQUE: VQ scan performed Radiotracer: 20 mCi xenon administered by aerosol for ventilation portion. 5.5 mCi technetium 99m microaggregated albumin administered intravenously for perfusion scan. FINDINGS: No perfusion defects identified. Perfusion radiotracer distribution somewhat heterogeneous. Ventilation images unremarkable. IMPRESSION: Low suspicion VQ scan; findings consistent with low probability of pulmonary embolus. Reviewed, dictated and finalized at location A. T LEAD IMPRESSION: Low suspicion VQ scan; findings consistent with low probability of pulmonary em bolus.
--- NOTE | ~2025-02-18 | CT_ITS ---
EXAM/PROCEDURE: CT abdomen pelvis w con HISTORY: bloating, abd pain, pyelo r/o abscess COMPARISON: February 18, 2025 TECHNIQUE: IV contrast enhanced CT of the abdomen and pelvis performed. FINDINGS: The bowel gas pattern is nonobstructive with no free air or pneumatosis seen. Trace amount of free fluid. Small bilateral pleural effusions have developed in lung bases with subsegmental atelectatic changes. Few air bronchograms are also present. Small pericardial effusion also developing with greatest transverse dimension of the fluid approximate 5 mm. Enlargement and diffuse mild hypoenhancement/hypoattenuation of the left kidney again noted is mild perinephric fluid and ureteral wall enhancement noted. Milder ureteral wall enhancement on the right side with no hydronephrosis or hydroureter. The right kidney appears normal in attenuation and enhancement. Several nonobstructing right-sided kidney stones are again noted. No grossly inflamed appendix or AAA. Gallbladder pancreas stomach and adrenal glands appear stable. Urinary bladder uterus and adnexal regions unremarkable. Moderate amount of stool extends to the cecal region. Borderline splenomegaly. IMPRESSION: 1. No gross interval change in the appearance of the left kidney consistent with ascending UTI and pyelonephritis. 2. Several nonobstructing right-sided kidney stones but otherwise normal- appearing right kidney. 3. Development of bilateral pleural effusions with subsegmental atelectatic changes; air bronchograms are present and developing consolidation or infiltrate could also be present. 4. Small pericardial effusion. Reviewed, dictated and finalized at location A. EF SALESPERSON IMPRESSION: 1. No gross interval change in the appearance of the left kidney consistent wit h ascending UTI and pyelonephritis. 2. Several nonobstructing right-sided kidney stones but otherwise normal-appear ing right kidney. 3. Development of bilateral pleural effusions with subsegmental atelectatic mackenzie nges; air bronchograms are present and developing consolidation or infiltrate c ould also be present. 4. Small pericardial effusion.
[2025-02-18 19:20] VITALS: BP 101/63; PULSE 110; RESP 16; TEMP 37.1; O2SAT 97
--- OUTSIDE RECORDS SUMMARY | 2025-02-18 22:24 | XMS_ITS | Clinical Summary ---
Author Organization [facility] Address [address] [place] [address] Care Team Providers Care [employer] Products Installer Name Role Phone Raffi Jean MD Primary Care Provider [phone] Source Comments [facility] [employer],non-owned Affiliates and Associated Physician Practices is amultiple site organization consisting of ambulatory clinics and hospital sitesin [place], [place], [place] and [place]. This disclosure is being madepursuant to the Care Everywhere program and may not contain all information available regarding this patient. Last updated [employer] Allergies No known active allergies Medications * Be aware that medications may not be up to date on this document. Alwaysverify current medications with the patient. albuterol HFA (PROAIR HFA) 108 (90 BASE) MCG/ACT inhaler Inhale 2 Puffs by mouth every 4 hours as needed for Shortness of Breath, Wheezing or Cough 1 Inhaler 1 6 Active youqykjhh-bhy-l m-apap (ROBITUSSIN FLU) 15-1-5-160 MG/5ML syrup Take [...] Comments Blood Pressure 110/66 02/16/2016 12:54 PM ADJUSTMENT EXAMINER Pulse 84 02/16/2016 12:54 PM ADJUSTMENT EXAMINER Temperature 36.7 C (98.1 F) 02/16/2016 12:54 PM ADJUSTMENT EXAMINER Respiratory Rate 18 02/16/2016 12:54 PM ADJUSTMENT EXAMINER Oxygen Saturation 97% 02/16/2016 12:54 PM ADJUSTMENT EXAMINER Inhaled Oxygen Concentration - - Weight 56.7 kg (125 lb) 02/16/2016 12:54 PM ADJUSTMENT EXAMINER Height 148.6 cm (4' 10.5) 02/16/2016 12:[address] Body Mass Index 25.68 02/16/2016 12:54 PM ADJUSTMENT EXAMINER Plan of Treatment Health Maintenance Due Date [...] / using tobacco Lifestyle No Bárbara Lo, SKI PATROL DIRECTOR-FREIGHT BOOKER Insurance [facility] MEDICARE SELF PAY NO INSURANCE Member Subscriber Plan / Payer (Ef fective for All Dates) Name:Bonnie Infante Member ID:Not on file Relation to Subscriber:Not on file Name:BONNIE INFANTE Subscriber ID:Not on file (Home) Address: [address] [place] [id number] Payer ID:Not on file Group ID:Not on file Type:Self Pay Address: [place], [place] Care Teams [employer] Installer Relationship Specialty Start Date End Date Raffi Jean MD [address] [place] [address] PCP - General Family Medicine 02/01/16
[2025-02-18 22:35] LABS: Hematocrit 37.6 % (37.0-47.0); Hemoglobin 12.7 g/dL (12.0-15.0); Immature Granulocyte Percent A 2.3 % (0-0.5); Lymphocytes Absolute Auto 1.10 K/mm3 (0.9-3.2); Mean Corpuscular HGB Conc 33.8 g/dl (32-36); Mean Corpuscular Hemoglobin 30.9 pg (26-34); Mean Corpuscular Volume 91.5 fl (80-100); Nucleated Red Blood Cells Absolute Auto 0.000 K/mm3 (0.0-0.012); Nucleated Red Blood Cells Perc 0.0 % (0.0-0.2); Platelet Count Result 156 k/mm3 (150-375); Red Blood Count 4.11 M/mm3 (4.2-5.4); White Blood Count 14.4 K/mm3 (4.5-10.0)
[2025-02-18] MEDS: SODIUM CHLORIDE 0.9% IV 1,000 ML 999 ML IV CONT (22:35)
[2025-02-18 22:48] LABS: Alanine Aminotransferase 26 U/L (6-35); Albumin Level 3.7 g/dL (3.5-5.1); Alkaline Phosphatase 82 U/L (38-126); Anion Gap 8 mmol/L (4-12); Aspartate Amino Transferase 41 U/L (14-36); Bilirubin,Total 1.2 mg/dL (0.2-1.3); Blood Urea Nitrogen 30 mg/dL (7-17); Calcium 10.0 mg/dL (8.4-10.2); Carbon Dioxide 19 mmol/L (22-30); Chloride 99 mmol/L (98-107); Estimated Glomerular Filt Rate 33; Glucose 172 mg/dL (65-110); Lipase 13 U/L (23-300); Potassium 4.1 mmol/L (3.4-5.0); Sodium 126 mmol/L (137-145); Total Protein 7.1 g/dL (6.3-8.2)
--- NOTE | 2025-02-18 23:13 | ED_ITS ---
HPI - Abdominal Pain General Chief Complaint: Abdominal Pain Stated Complaint: possible kidney stone Time Seen by Provider: 02/18/25 21:36 Source: patient Mode of arrival: ambulatory Limitations: no limitations History of Present Illness HPI narrative: This is a 70-year-old female with history of breast cancer, COPD, uterine prolapse status post procedure 5 weeks ago who presents to the ED for left upper abdominal pain. Patient states that for the past few days, she has been having this pain. Denies nausea, vomiting. She notes that maybe she has been a little constipated. states that patient has had urinary retention today and they saw her PCP today and they did a bladder scan that showed very little urine. Denies fevers, chills, chest pain, shortness of breath. Denies dysuria, hematuria. Related Data Home Medications ?Medication ?Instructions ?Recorded ?Confirmed ?Last Taken ?Type tamoxifen 20 mg tablet 20 mg PO DAILY 09/26/2402/0902/18/25 History albuterol sulfate 90 mcg/actuation 2 puff inhalation Q 4-6H PRN 12/27/24 02/19/25 Unknown History aerosol inhaler shortness of breath or wheez ing calcium carb-ergocalciferol (vit 1 tablet PO DAILY 02/19/25 02/18/25 History D2) 600 mg calcium-200 unit tablet alendronate 70 mg tablet 70 mg PO WEEKLY 01/21/2503/0502/10/25 History Allergies Allergy/AdvReac Type Severity Reaction Status Date / Time No Known Allergies Allergy Verified 02/19/25 04:54 Review of Systems 2 Review of Systems: Gen.: Denies fevers or chills Eyes: Denies eye pain or visual change ENT: Denies congestion Respiratory: Denies shortness of breath or cough CV: Denies chest pain or palpitations GI: As per HPI as per HPI Musculoskeletal: Denies back pain or muscle pain Neuro: Denies numbness, tingling, weakness or focal weakness Skin: Denies rash Except as documented, all other systems reviewed and negative [facility] Past Medical History Medical History Uterine prolapse Breast cancer Tobacco dependence Chronic obstructive pulmonary disease Anxiety Left breast mass Surgical History Surgical History History of hysterectomy H/O mastectomy History of section History of left breast biopsy Family History Family History Father Lung cancer Mother Lung cancer Social History Social History Social History: Surrogate medical decision maker: Ralph Jones, spouse. Code status: Full code. Smoking packs per day: 1 Smoking cigarettes per day: 20.0 Years smoked: 47 Smoking pack-years: 47.00 Second hand tobacco smoke exposure: No Smoking end date: 07/23/24 Additional smoking assessment comments: TAPERED DOWN TO 1/2 PACK/DAY IN LAST FEW YEARS Alcohol intake: never Substance use: never Substance use type: does not use Do You Feel Safe in your Home?: Yes Lack of Transportation: No Lack of Food: Never True Current Housing: I Have Housing Concerned About Future Housing: No Difficulty Paying Gas/Electric Bills: No Difficulty Paying for Meds: No Currently Unemployed: No Education: High School Diploma/GED Difficulty w/ Childcare or Family Care: No Living arrangements: with family Additional living arrangements comments: [facility] Occupation/Education: retired Gender identity (if verbalized by the patient): Female Sexual Orientation (if Verbalized by the Patient): Straight or Heterosexual Spiritual care concerns: No Agree to blood products: Yes Exam 2 Narrative: APPEARANCE: No acute distress, nontoxic, resting in bed EYES: EOMI HEENT: Normocephalic, atraumatic, OMM RESPIRATORY: No respiratory distress Clear to auscultation bilaterally with no rhonchi wheezing or rales. CARDIOVASCULAR: Regular rate and rhythm without murmurs rubs or gallops. ABDOMINAL: Soft, mild left upper quadrant tenderness to palpation, CVA tenderness on the left, nondistended, no rebound or guarding MUSCULOSKELETAl: Moves all extremities. No clubbing, cyanosis or edema. NEURO: Awake and alert. Following commands, speech normal, no focal deficits SKIN:: Warm, dry. No rashes lesions or abrasions PSYCHIATRIC: Normal affect/mood, Course Vital Signs Vital signs: Vital Signs Temperature 98.8 F 02/18/25 19:20 Pulse Rate 110 H 02/18/25 19:20 Respiratory Rate 16 02/18/25 19:20 Blood Pressure 101/63 02/18/25 19:20 Pulse Oximetry 97 02/18/25 19:20 Oxygen Delivery Room Air 02/18/25 19:20 Temperature 98.8 F 02/18/25 19:20 Pulse Rate 106 H 02/19/25 03:31 Respiratory Rate 24 H 02/19/25 03:31 Blood Pressure 114/69 02/19/25 03:31 Pulse Oximetry 98 02/19/25 03:31 Oxygen Delivery Nasal Cannula 02/19/25 01:30 Oxygen Flow Rate 2 02/19/25 01:30 MDM - Abdominal Pain MDM Narrative Medical decision making narrative: 70-year-old female Presenting for left flank pain and possible urinary retention. On initial evaluation patient was in no acute distress afebrile, hemodynamic stable. Differentials include but are not limited to: Ureterolithiasis, pyelonephritis, MSK pain, constipation, obstruction, PNA, Cancer Notable exam findings: CVA tenderness on the left. Mild left upper quadrant tenderness to palpation. Notable lab findings: Leukocytosis of 14.4. Hyponatremic to 126. Creatinine elevated to 1.54. Lactic acidosis at 3.1. UA consistent with UTI. Notable imaging findings: CT abdomen/pelvis showed bilateral ascending UTI with probable left pyelonephritis without obstruction Patient was started on Ciprofloxacin. She was given 2 L NS bolus. She was given morphine and Zofran. Actually after the morphine, she did become more uncomfortable and nauseous and became tachycardic to the 140s. Patient would benefit from admission for pyelonephritis as well as electrolyte derangements. Case was discussed with hospitalist Dr. Barakat will admit. Does recommend switching to Rocephin. Medical Records Attestation: I reviewed the patient's medical records. Lab Data Attestation: I reviewed the patient's lab results. 02/18/25 22:29 02/18/25 22:29 Labs: Lab Results 02/18/25 02/18/25 02/19/25 Range/Units 22:29 23:17 01:19 WBC 14.4 H (4.5-10.0) K/mm3 RBC 4.11 L (4.2-5.4) M/mm3 Hgb 12.7 (12.0-15.0) g/dL Hct 37.6 (37.0-47.0) % MCV 91.5 (80-100) fl MCH 30.9 (26-34) pg MCHC 33.8 (32-36) g/dl RDW 13.9 (11.5-14.5) % Plt Count 156 (150-375) k/mm3 MPV 8.9 (7.4-10.4) fl Immature Gran % (Auto) 2.3 H (0-0.5) % Neut % (Auto) 83.7 H (45.5-73.1) % Lymph % (Auto) 7.6 L (18.3-44.2) % Navarro % (Auto) 6.2 (2.6-8.5) % Eos % (Auto) 0.0 (0-4.4) % Baso % (Auto) 0.2 (0.2-1.2) % Lymph # (Auto) 1.10 (0.9-3.2) K/mm3 Navarro # (Auto) 0.9 H (0.1-0.6) K/mm3 Eos # (Auto) 0.0 (0-0.3) K/mm3 Baso # (Auto) 0.0 (0.0-0.1) K/mm3 Abs Immat Gran (auto) 0.33 H (0.00-0.031) K/mm3 Absolute Neuts (auto) 12.0 H (1.3-6.7) K/mm3 Absolute Nucleated RBC 0.000 (0.0-0.012) K/mm3 Nucleated RBC % 0.0 (0.0-0.2) % Sodium 126 L (137-145) mmol/L Potassium 4.1 (3.4-5.0) mmol/L Chloride 99 (98-107) mmol/L Carbon Dioxide 19 L (22-30) mmol/L Anion Gap 8 (4-12) mmol/L BUN 30 H D (7-17) mg/dL Creatinine 1.54 H (0.7-1.0) mg/dL Estim Creat Clear Calc Not Reportable Estimated GFR 33 L (59 - ) Glucose 172 H (65-110) mg/dL Lactic Acid 3.1 H (0.7-2.0) mmol/L Calcium 10.0 (8.4-10.2) mg/dL Total Bilirubin 1.2 (0.2-1.3) mg/dL AST 41 H (14-36) U/L ALT 26 (6-35) U/L Alkaline Phosphatase 82 (38-126) U/L Total Protein 7.1 (6.3-8.2) g/dL Albumin 3.7 (3.5-5.1) g/dL Lipase 13 L (23-300) U/L Urine Color Yellow (Yellow) Urine Appearance Turbid H (Clear) Urine pH 5.5 (5.0-9.0) Ur Specific Lester 1.020 (1.001-1.035) Urine Protein 2+ H (Negative) mg/dL Urine Glucose (UA) Negative (Negative) mg/dL Urine Ketones Negative (Negative) mg/dL Ur Blood (Man) 3+ H (Negative) Urine Nitrate Negative (Negative) Urine Bilirubin Negative (Negative) Urine Urobilinogen 1.0 (<2.0) mg/dL Add Ur Microanalysis Reviewed Leukocyte Esterase Rfl 3+ H (Negative) FRANKIE/UL Urine RBC 3-5 H (0-2) /hpf Urine WBC >100 H (0-3) /hpf Urine WBC Clumps Present H (None) /HPF Ur Squamous Epith Cells None seen (Few) /hpf Urine Bacteria 4+ H /hpf Urine Casts 3-5 Imaging Data Radiologist's impression: CT abdomen/pelvis: Bilateral ascending UTI with prior left probable pyelonephritis, no obstruction Discharge Plan Discharge Clinical Impression: Acute pyelonephritis, Acute hyponatremia Sepsis Qualifiers: Sepsis type: sepsis due to unspecified organism Sepsis acute organ dysfunction status: unspecified Qualified Code(s): A41.9 - Sepsis, unspecified organism Patient Disposition: Still a Patient Condition: Stable
[2025-02-18 23:38] LABS: Add Urine Microscopic? YES; Appearance Urine Turbid (Clear); Glucose Urine UA Negative (Negative); Leukocyte Esterase Ur 3+ LEU/UL (Negative); Need Manual Microscopic Reviewed; Nitrate Urine Negative (Negative); Specific Grav Ur 1.020 (1.001-1.035)
[2025-02-18] MEDS: MORPHINE SULFATE (*CRX) 4 MG/ML INJ IV PUSH (23:55)
[2025-02-18] MEDS: ONDANSETRON INJ 4 MG/2 ML VIAL IV PUSH (23:55)
[2025-02-19] VITALS (25 sets, daily range): BP systolic 80–176; BP diastolic 38–106; PULSE 82–145; RESP 16–34; TEMP 36.1–37.2; O2SAT 89–100
[2025-02-19] MEDS: SODIUM CHLORIDE 0.9% IV 1,000 ML 999 ML IV CONT ×2 (00:42→04:08)
[2025-02-19] MEDS: CIPROFLOXACIN 400 MG/D5W 200ML 200 ML 200 MG IVPB (00:42)
[2025-02-19] MEDS: cefTRIAXone 1 GM in SODIUM CHLORIDE 0.9% IV 50 ML 100 ML IVPB (02:16)
[2025-02-19] MEDS: SODIUM CHLORIDE 0.9% IV 1,000 ML 150 ML IV CONT (02:17)
--- NOTE | 2025-02-19 03:02 | WPCEDHO ---
ED Hand Off Checklist All vitals saved:yes IV Site documented:yes All med administrations documented:yes Triage Note Triage Note PT TO ED FOR EVAL OF LUQ ABD PAIN 02/18/25 23:50 WHICH WRAPS AROUND HER WAIST INTO BACK FOR PAST 3 DAYS. NO N/V . REPORTS DIFF URINATION BUT NO BLOOD. Allergies No Known Allergies Allergy (Verified 02/04/25 09:50) Family History (Last Reviewed 02/18/25 @ 23:14 by Isaiah Velez DO) Father Lung cancer Mother Lung cancer Active Medications including assessments/comments Sodium Chloride (Normal Saline Iv) 1,000 mls @ 150 mls/hr IV CONT .Q6H40M STA Stop: 02/19/25 08:21 Last Admin: 02/19/25 02:17 Dose: 150 mls/hr Documented By: VINI Infusion/Titration Document 02/19/25 02:17 VINI (Rec: 02/19/25 02:17 VINI [id number]) Intake IV Site Peripheral Access Right Wrist Container Volume 1,000 Waste Amount 0 Dosing Infusion Rate 150 Cumulative Dose Not Applicable Increase/Decrease Started Elapsed Time Elapsed Time ( 0m minutes) Administered/Completed Medications Discontinued Medications Sodium Chloride (Normal Saline Iv) 1,000 mls @ 999 mls/hr IV CONT .Q1H1M STA Stop: 02/18/25 23:06 Last Infusion: 02/18/25 23:54 Dose: Infused Documented By: Admin: 02/18/25 22:35 Dose: 999 mls/hr Documented By: ISA Ciprofloxacin/Dextrose (Cipro 400 Mg/D5w 200 Ml) 200 mls @ 200 mls/hr IVPB ONCE ONE Stop: 02/19/25 00:50 Last Infusion: 02/19/25 02:12 Dose: Infused Documented By: Admin: 02/19/25 00:42 Dose: 200 mls/hr Documented By: EVON Sodium Chloride (Normal Saline Iv) 1,000 mls @ 999 mls/hr IV CONT .Q1H1M STA Stop: 02/19/25 01:23 Last Infusion: 02/19/25 02:12 Dose: Infused Documented By: Admin: 02/19/25 00:42 Dose: 999 mls/hr Documented By: EVON Ceftriaxone Sodium 1 gm/ (Sodium Chloride) 50 mls @ 100 mls/hr IVPB ONCE STA Stop: 02/19/25 02:11 Last Infusion: 02/19/25 02:59 Dose: Infused Documented By: Admin: 02/19/25 02:16 Dose: 100 mls/hr Documented By: EMW Morphine Sulfate (Morphine Sulfate (*Crx) 4 Mg/Ml Inj) 4 mg IV PUSH ONCE STA Stop: 02/18/25 23:13 Last Admin: 02/18/25 23:55 Dose: 4 mg Documented By: EMW Ondansetron HCl (Ondansetron Inj 4 Mg/2 Ml Vial) 4 mg IV PUSH ONCE STA Stop: 02/18/25 23:13 Last Admin: 02/18/25 23:55 Dose: 4 mg Documented By: VINI Interventions/Assessments IV / Saline Lock, Insert Start: 02/18/25 19:26 Freq: Status: Active Protocol: Document 02/18/25 22:35 KLM (Rec: 02/18/25 22:36 KLM [id number]) IV Assessment Peripheral Access Right Wrist IV Catheter Access Initiated IV Insertion Date 02/18/25 IV Insertion Time 22:36 Catheter Gauge 18 IV Site Assessment WNL IV Care and WNL Maintenance PA: Gastrointestinal Assessment Start: 02/18/25 19:26 Freq: Status: Active Protocol: Document 02/19/25 00:00 EMW (Rec: 02/19/25 03:02 EMW [id number]) GI Assessment Gastrointestinal Nausea,Pain Symptoms Description Distended,Round Nausea/Vomiting Assessment Nausea Frequency Intermittent Last Vital Signs Temperature 98.8 F 02/18/25 19:20 Pulse Rate 110 H 02/19/25 02:59 Respiratory Rate 23 H 02/19/25 02:59 Pulse Oximetry 96 02/19/25 02:59 Blood Pressure 98/50 L 02/19/25 02:59 Blood Pressure Mean 66 02/19/25 02:59 Blood Pressure Position Sitting 02/18/25 19:20 Oxygen Delivery Nasal Cannula 02/19/25 01:30 Oxygen Flow Rate 2 02/19/25 01:30 Weight 66 kg 02/18/25 23:50 Last Result - Abnormals Only WBC 14.4 K/mm3 (4.5-10.0) H 02/18/25 22:29 RBC 4.11 M/mm3 (4.2-5.4) L 02/18/25 22:29 Immature Gran % (Auto) 2.3 % (0-0.5) H 02/18/25 22:29 Neut % (Auto) 83.7 % (45.5-73.1) H 02/18/25 22: Lymph % (Auto) 7.6 % (18.3-44.2) L 02/18/25 22:29 [place] # (Auto) 0.9 K/mm3 (0.1-0.6) H 02/18/25 22:29 Abs Immat Gran (auto) 0.33 K/mm3 (0.00-0.031) H 02/18/25 22:29 Absolute Neuts (auto) 12.0 K/mm3 (1.3-6.7) H 02/18/25 22:29 Sodium 126 mmol/L (137-145) L 02/18/25 22:29 Carbon Dioxide 19 mmol/L (22-30) L 02/18/25 22:29 BUN 30 mg/dL (7-17) H D 02/18/25 22:29 Creatinine 1.54 mg/dL (0.7-1.0) H 02/18/25 22:29 Estimated GFR 33 (59-) L 02/18/25 22:29 Glucose 172 mg/dL (65-110) H 02/18/25 22:29 Lactic Acid 3.1 mmol/L (0.7-2.0) H 02/19/25 01:19 AST 41 U/L (14-36) H 02/18/25 22:29 Lipase 13 U/L (23-300) L 02/18/25 22:29 Urine Appearance Turbid (Clear) H 02/18/25 23:17 Urine Protein 2+ mg/dL (Negative) H 02/18/25 23:17 Ur Blood (Man) 3+ (Negative) H 02/18/25 23:17 Leukocyte Esterase Rfl 3+ FRANKIE/UL (Negative) H 02/18/25 23:17 Urine RBC 3-5 /hpf (0-2) H 02/18/25 23:17 Urine WBC >100 /hpf (0-3) H 02/18/25 23:17 Urine WBC Clumps Present /HPF (None) H 02/18/25 23:17 Urine Bacteria 4+ /hpf H 02/18/25 23:17 Most Recent Suicide Severity Rating Suicide Severity Rating NO RISK INDICATED 02/18/25 23:50
[2025-02-19 06:04] LABS: Hematocrit 30.1 % (37.0-47.0); Hemoglobin 10.0 g/dL (12.0-15.0); Immature Granulocyte Percent A 3.1 % (0-0.5); Lymphocytes Absolute Auto 0.76 K/mm3 (0.9-3.2); Mean Corpuscular HGB Conc 33.2 g/dl (32-36); Mean Corpuscular Hemoglobin 31.4 pg (26-34); Mean Corpuscular Volume 94.7 fl (80-100); Nucleated Red Blood Cells Absolute Auto 0.000 K/mm3 (0.0-0.012); Nucleated Red Blood Cells Perc 0.0 % (0.0-0.2); Platelet Count Result 109 k/mm3 (150-375); Red Blood Count 3.18 M/mm3 (4.2-5.4); White Blood Count 12.9 K/mm3 (4.5-10.0)
[2025-02-19 06:34] LABS: Alanine Aminotransferase 23 U/L (6-35); Albumin Level 2.7 g/dL (3.5-5.1); Alkaline Phosphatase 76 U/L (38-126); Anion Gap 7 mmol/L (4-12); Aspartate Amino Transferase 27 U/L (14-36); Bilirubin,Total 0.8 mg/dL (0.2-1.3); Blood Urea Nitrogen 27 mg/dL (7-17); Calcium 8.2 mg/dL (8.4-10.2); Carbon Dioxide 17 mmol/L (22-30); Chloride 106 mmol/L (98-107); Estimated Glomerular Filt Rate 30; Glucose 156 mg/dL (65-110); Sodium 130 mmol/L (137-145); Total Protein 5.6 g/dL (6.3-8.2)
[2025-02-19 06:41] LABS: Potassium 3.4 mmol/L (3.4-5.0)
--- NOTE | 2025-02-19 06:50 | PM.IMHP ---
H&P: HPI History of Present Illness Date/Time: 02/19/25 06:50 Chief Complaint: Left lower abdominal pain and cough Narrative: 70-year-old female with a past medical history of obesity, COPD with recent tobacco cessation, left breast cancer, and recent hysterectomy and bladder sling who presented to the ER with left lower abdominal pain and cough. The patient reports that she has been having some discomfort in her left lower abdomen up into her ribcage. She thought that it was due to lifting some boxes and caring them up to steps to check rate for [place]. She then began having some dry cough which seemed to make the pain worse. The pain was also worse with palpation of the area. But over the last 3 days the pain has radiated around her waist into her back. She denies any CVA tenderness. She has chronic urinary frequency and urgency. She denies any dysuria. She has been having some hot flashes and sweats but she does not think this is any different and assumed it was due to menopause. She has been having some mild nausea but no vomiting. She reports having normal bowel movements. Her abdomen is quite distended on exam but she states that this is chronic for her. She denies any suprapubic discomfort. She denies any ill contacts with upper respiratory symptoms. She reports that her cough is not unusual for when she is not up and moving. She states any time that she gets run down she will get a cough. She denies any chest pain or palpitations. She reports generally just feels ill and severely fatigued. Review of Systems Review of Systems: 12 systems were reviewed with pertinent positives and negatives per HPI. Except as documented in the HPI, all other systems were reviewed and are negative. PENDING SALE TO [facility] Past Medical History Medical History (Updated 02/19/25 @ 07:04 by Mitra Amaya DO) Osteoporosis Former tobacco use Quit July 2024 Invasive ductal carcinoma of left breast Uterine prolapse Breast cancer Chronic obstructive pulmonary disease Anxiety Left breast mass Surgical History Surgical History (Updated 02/19/25 @ 07:07 by Mitra Amaya DO) Status post sacrocolpopexy (12/2024) History of bilateral salpingo-oophorectomy (12/2024) S/P laparoscopic supracervical hysterectomy (12/2024) History of left mastectomy (07/2024) History of section History of left breast biopsy Family History Family History Father Lung cancer Mother Lung cancer Social History Social History (Updated 02/19/25 @ 07:29 by Mitra Amaya DO) Social History: She is . Her raised 1 child. She smoked 1 pack of cigarettes per day from the time she was a teenager until July of 2024. She denies any significant alcohol use or illicit substance use. Surrogate medical decision maker: Ralph Jones, spouse. Code status: Full code. Smoking packs per day: 1 Smoking cigarettes per day: 20.0 Years smoked: 47 Smoking pack-years: 47.00 Tobacco type: cigarettes Second hand tobacco smoke exposure: Yes Smoking end date: 08/12/24 Additional smoking assessment comments: TAPERED DOWN TO 1/2 PACK/DAY IN LAST FEW YEARS Alcohol intake: never Substance use: never Substance use type: does not use Do You Feel Safe in your Home?: Yes Lack of Transportation: No Lack of Food: Never True Current Housing: I Have Housing Concerned About Future Housing: No Difficulty Paying Gas/Electric Bills: No Difficulty Paying for Meds: No Currently Unemployed: No Education: High School Diploma/GED Difficulty w/ Childcare or Family Care: No Living arrangements: with family Additional living arrangements comments: [place] Occupation/Education: retired Gender identity (if verbalized by the patient): Female Sexual Orientation (if Verbalized by the Patient): Straight or Heterosexual Spiritual care concerns: No Agree to blood products: Yes Meds Home Medications and Allergies Home Medications ?Medication ?Instructions ?Recorded ?Confirmed ?Type tamoxifen 20 mg tablet 20 mg PO DAILY 09/26/24 02/19/25 History albuterol sulfate 90 mcg/actuation 2 puff inhalation Q4-6H PRN 12/27/24 02/19/25 History aerosol inhaler shortness of breath or wheezing calcium carb-ergocalciferol (vit 1 tablet PO DAILY 12/27/24 02/19/25 History D2) 600 mg calcium-200 unit tablet docusate sodium 100 mg capsule 100 mg PO BID #40 caps 01/07/25 02/19/25 Rx (Colace) alendronate 70 mg tablet 70 mg PO WEEKLY 01/21/25 02/19/25 History Allergies Allergy/AdvReac Type Severity Reaction Status Date / Time No Known Allergies Allergy Verified 02/19/25 04:54 Vital Signs Vital Signs - 24 hr 02/18/25 19:20 02/19/25 00:23 02/19/25 00:47 Temperature 98.8 F Pulse Rate 110 H 145 H 135 H Respiratory Rate 16 34 H 22 H Blood Pressure 101/63 176/89 H 113/69 Pulse Oximetry 97 97 92 Oxygen Delivery Room Air Oxygen Flow Rate 02/19/25 01:30 02/19/25 01:30 02/19/25 02:14 Temperature Pulse Rate 114 H Respiratory Rate 20 Blood Pressure 141/106 H Pulse Oximetry 89 L 95 96 Oxygen Delivery Room Air Nasal Cannula Oxygen Flow Rate 2 02/19/25 02:22 02/19/25 02:31 02/19/25 02:55 Temperature Pulse Rate 115 H 106 H 109 H Respiratory Rate 26 H 18 18 Blood Pressure 90/52 L 80/52 L 82/55 L Pulse Oximetry 95 97 97 Oxygen Delivery Oxygen Flow Rate 02/19/25 02:59 02/19/25 03:31 02/19/25 04:05 Temperature 96.9 F L Pulse Rate 110 H 106 H 110 H Respiratory Rate 23 H 24 H 20 Blood Pressure 98/50 L 114/69 82/38 L Pulse Oximetry 96 98 98 Oxygen Delivery Oxygen Flow Rate 02/19/25 04:45 02/19/25 06:00 Temperature 97 F L Pulse Rate 109 H Respiratory Rate 24 H Blood Pressure 90/50 L Pulse Oximetry 98 94 Oxygen Delivery Nasal Cannula Oxygen Flow Rate 2 Exam Narrative: Weight 66 kg BMI 30.4 Const: Other: Acutely ill-appearing, obese HENMT: Other: Mucous membranes are dry, multiple missing teeth with poor dentition, nasal cannula in place Eyes: Other: Pupils are equal and reactive, positive conjunctival pallor, no scleral icterus for, crowded posterior oropharynx Neck: Other: Large neck circumference, no JVD Resp: Other: Diffuse wheezing bilaterally anterior, mild tachypnea, decreased breath sounds posterior lung field Cardio: Other: Sinus tachycardia, 2+ bilateral radial pedal pulses, no murmur GI: Other: Marked tenderness in the left lateral abdomen, hepatomegaly, positive bowel sounds, tense, distended Skin: Other: Generalized pallor, non jaundice Neuro: Other: Alert oriented to person, place and year initially stated that the month was March but correct herself to February, no facial asymmetry, no gross motor deficits noted during the course of conversation Extrem: Other: No clubbing, cyanosis or edema, moves all extremities equally Psych: Other: Flat affect, cooperative, intact judgment and insight H&P: Results Labs Labs: Short CBC 02/18/25 Range/Units 22:29 WBC 14.4 H (4.5-10.0) K/mm3 Hgb 12.7 (12.0-15.0) g/dL Hct 37.6 (37.0-47.0) % Plt Count 156 (150-375) k/mm3 [facility] 02/18/25 02/19/25 22:29 05:49 Sodium 126 L 130 L Potassium 4.1 3.4 Chloride 99 106 Carbon Dioxide 19 L 17 L BUN 30 H D 27 H Creatinine 1.54 H 1.69 H Glucose 172 H 156 H Calcium 10.0 8.2 L Liver Function 02/18/25 02/19/25 Range/Units 22:29 05:49 Total Bilirubin 1.2 0.8 (0.2-1.3) mg/dL AST 41 H 27 (14-36) U/L ALT 26 23 (6-35) U/L Alkaline Phosphatase 82 76 (38-126) U/L Albumin 3.7 2.7 L (3.5-5.1) g/dL Urine 02/18/25 Range/Units 23:17 Urine Color Yellow (Yellow) Urine Appearance Turbid H (Clear) Urine pH 5.5 (5.0-9.0) Ur Specific [place] 1.020 (1.001-1.035) Urine Protein 2+ H (Negative) mg/dL Urine Glucose (UA) Negative (Negative) mg/dL Laboratory Tests 02/19/25 05:49 02/19/25 05:49 02/18/25 02/18/25 02/19/25 22:29 23:17 01:19 WBC 14.4 H RBC 4.11 L Hgb 12.7 Hct 37.6 MCV 91.5 MCH 30.9 MCHC 33.8 RDW 13.9 Plt Count 156 MPV 8.9 Immature Gran % (Auto) 2.3 H Neut % (Auto) 83.7 H Lymph % (Auto) 7.6 L [place] % (Auto) 6.2 Eos % (Auto) 0.0 Baso % (Auto) 0.2 Lymph # (Auto) 1.10 [place] # (Auto) 0.9 H Eos # (Auto) 0.0 Baso # (Auto) 0.0 Abs Immat Gran (auto) 0.33 H Absolute Neuts (auto) 12.0 H Absolute Nucleated RBC 0.000 Nucleated RBC % 0.0 Sodium 126 L Potassium 4.1 Chloride 99 Carbon Dioxide 19 L Anion Gap 8 BUN 30 H D Creatinine 1.54 H Estim Creat Clear Calc Not Reportable Estimated GFR 33 L Glucose 172 H Lactic Acid 3.1 H Calcium 10.0 Total Bilirubin 1.2 AST 41 H ALT 26 Alkaline Phosphatase 82 Total Protein 7.1 Albumin 3.7 Lipase 13 L Urine Color Yellow Urine Appearance Turbid H Urine pH 5.5 Ur Specific [place] 1.020 Urine Protein 2+ H Urine Glucose (UA) Negative Urine Ketones Negative Ur Blood (Man) 3+ H Urine Nitrate Negative Urine Bilirubin Negative Urine Urobilinogen 1.0 Add Ur Microanalysis Reviewed Leukocyte Esterase Rfl 3+ H Urine RBC 3-5 H Urine WBC >100 H Urine WBC Clumps Present H Ur Squamous Epith Cells None seen Urine Bacteria 4+ H Urine Casts 3-5 02/19/25 05:49 WBC 12.9 H RBC 3.18 L Hgb 10.0 L Hct 30.1 L MCV 94.7 MCH 31.4 MCHC 33.2 RDW 14.0 Plt Count 109 L MPV 8.9 Immature Gran % (Auto) 3.1 H Neut % (Auto) 83.1 H Lymph % (Auto) 5.9 L [place] % (Auto) 6.6 Eos % (Auto) 0.9 Baso % (Auto) 0.4 Lymph # (Auto) 0.76 L [place] # (Auto) 0.9 H Eos # (Auto) 0.1 Baso # (Auto) 0.1 Abs Immat Gran (auto) 0.40 H Absolute Neuts (auto) 10.7 H Absolute Nucleated RBC 0.000 Nucleated RBC % 0.0 Sodium 130 L Potassium 3.4 Chloride 106 Carbon Dioxide 17 L Anion Gap 7 BUN 27 H Creatinine 1.69 H Estim Creat Clear Calc Not Reportable Estimated GFR 30 L Glucose 156 H Lactic Acid 2.3 H Calcium 8.2 L Total Bilirubin 0.8 AST 27 ALT 23 Alkaline Phosphatase 76 Total Protein 5.6 L Albumin 2.7 L Lipase Urine Color Urine Appearance Urine pH Ur Specific [place] Urine Protein Urine Glucose (UA) Urine Ketones Ur Blood (Man) Urine Nitrate Urine Bilirubin Urine Urobilinogen Add Ur Microanalysis Leukocyte Esterase Rfl Urine RBC Urine WBC Urine WBC Clumps Ur Squamous Epith Cells Urine Bacteria Urine Casts Impressions Abdomen/Pelvis CT 02/19/25 06:50 IMPRESSION: 1. Bilateral pyelitis. On my review of the imaging the patient also appears to have a large liver. I suspect underlying hepatic steatosis. Assessment and Plan Assessment and plan (1) Acute pyelonephritis: Code(s): N10 - Acute pyelonephritis Status: Acute (2) Severe sepsis: Code(s): A41.9 - Sepsis, unspecified organism; R65.20 - Severe sepsis without septic shock Status: Acute (3) Acute kidney injury: Code(s): N17.9 - Acute kidney failure, unspecified Status: Acute (4) COPD exacerbation: Code(s): J44.1 - Chronic obstructive pulmonary disease with (acute) exacerbation Status: Acute (5) Acute hypoxic respiratory failure: Code(s): J96.01 - Acute respiratory failure with hypoxia Status: Acute (6) Lactic acidosis: Code(s): E87.20 - Acidosis, unspecified Status: Acute (7) Acute hyponatremia: Code(s): E87.1 - Hypo-osmolality and hyponatremia Status: Acute Plan Patient has acute pyelonephritis and meets criteria for severe sepsis. Sepsis criteria met with persistent lactic acidosis after 30 mL/kilos fluid bolus, leukocytosis, tachycardia and tachypnea. The patient appears intervascular volume depleted and has persistent lactic acidosis and borderline low blood pressures. Will give an additional 1 L fluid bolus and then switch back to fluids at 150 mL an hour. Patient was started on empiric antibiotic therapy with Rocephin. Patient reports persistent urinary frequency despite pelvic suspension procedure December. Will obtain postvoid residual to rule out component of incomplete bladder emptying. Will monitor strict I&O's and daily weights. Will avoid nephrotoxic medications. The patient does have acute hyponatremia likely due to to hypovolemia hyponatremia has improved with IV fluid hydration. I am suspicious the patient may have some Gram-negative bacteremia given her low blood pressures but despite systolic blood pressures being 90 the patient is having maps that her ranging between 63-80. Patient does have history of COPD and has been having increasing wheezing and cough. She does have some mild hypoxia requiring 2 L nasal cannula she is not on hot oxygen at home. Will place patient on scheduled nebulizer treatments with DuoNeb q.6 hours. Will add IV Solu-Medrol 40 mg q.6 hours. Will order incentive spirometry. Will wean oxygen as tolerated. MEDICAL DECISION MAKING NARRATIVE -Spoke with the ED provider in detail regarding patient's evaluation, workup and management -Patient seen and examined at bedside -Collaborated with patient's nurse at the bedside in detail and addressed all concerns -Labs, electrolytes, radiology, investigations and test results personally reviewed and interpreted unless otherwise specified -ED/Consult/Nursing/Ancilliary notes on the chart reviewed and appreciated -Spoke with patient at bedside and diagnosis and plan of care was discussed. All questions answered. Quality VTE Prophylaxis VTE prophylaxis: pharmacologic ordered (Lovenox 40 mg subQ daily) Hospitalist [facility] [place] Advance Care Plan I have confirmed that the patient's Advanced Care Plan is present, code status is documented, or surrogate decision maker is listed in patient medical record.: Yes Medication Reconciliation I have utilized all available resources to obtain, update and review the patients current medications (includes all prescriptions, OTC, herbals, cannabis, and nutritional supplements).: Yes
[2025-02-19] MEDS: IPRATROPIUM 0.5 MG/ALBUTEROL SULFATE 2.5 MG (BASE) AMPUL.NEB 3 ML INHALATION ×3 (07:46→19:33)
--- NOTE | 2025-02-19 09:02 | P.PNIM_ITS ---
Progress Note: A&P Assessment and Plan (1) Severe sepsis: Code(s): A41.9 - Sepsis, unspecified organism; R65.20 - Severe sepsis without septic shock Status: Acute Assessment and Plan: Meets SIRS criteria: persistent lactic acidosis after 30 mL/kilos fluid bolus, leukocytosis, tachycardia and tachypnea The patient appears intervascular volume depleted and has persistent lactic acidosis and borderline low blood pressures. Will give an additional 1 L fluid bolus and then switch back to fluids at 150 mL an hour. - lactic acid: Lactic 3.1 >> 2.3 on am labs, now uptrending on repeat On admission patient appeared intervascular volume depleted and had persistent lactic acidosis and borderline low blood pressures, received sepsis bolus and 1L additional bolus and was placed on 150 ml/hr IV fluids. Continue IV fluids. - suspected source: pyelonephritis - blood cultures drawn on 02/18: pending - UA concerning for infection - Urine culture: pending - CT abdomen/pelvis: Bilateral pyelitis Patient continues to have hypotension with tachycardia, leukocytosis and lactic acidosis. Will broaden antibiotics to cefepime. Possible that lactic acidosis is also related hypoxemia due to ongoing SOB with new o2 need. See plan below. (2) Acute hypoxic respiratory failure: Code(s): J96.01 - Acute respiratory failure with hypoxia Status: Acute Assessment and Plan: - Symptoms: worsening shortness of breath that is further exacerbated with ambulation - Oxygen supplementation: 2L NC, baseline RA - Suspected cause: COPD vs CHF vs PE vs other - Increased risk of PE given cancer history on hormone therapy, age, symptoms, recent hysterectomy on 01/07. Wells criteria 5.5 and Perc rule 4 Started on therapeutic Lovenox 66 mg/kg daily (renal dosing) with VQ scan pending given patients current renal function prevents a CTA - Chest XR showing mild CHF Echo ordered, unknown history of CHF. Possible that if patient does have PE potentially causing right heart strain leading heart failure exacerbation. Lungs sounds on auscultation without crackles or rhonchi. BP has been soft since admission. Will hold lasix for now. - On admission there was concern for COPD exacerbation as patient does have audible wheezing. Started on scheduled nebulizer treatments with DuoNeb q.4 hours. and IV Solu- Medrol 40 mg q.6 hours. (3) Acute pyelonephritis: Code(s): N10 - Acute pyelonephritis Status: Acute Assessment and Plan: Patient has acute pyelonephritis and meets criteria for severe sepsis. Patient reports persistent urinary frequency despite pelvic suspension procedure December. Will obtain postvoid residual to rule out component of incomplete bladder emptying. Antibiotics: Rocephin started on 02/18, broadened to cefepime on 02/19 Will monitor strict I&O's and daily weights. Will avoid nephrotoxic medications. (4) Acute kidney injury: Code(s): N17.9 - Acute kidney failure, unspecified Status: Acute Assessment and Plan: BUN/Cr 30/1.54 with GFR 33 on admission Likely related to ongoing sepsis hypotension causing decreased perfusion vs hypovolemia vs pyelonephritis BUN/Cr 27/1.69 with GFR 30 on am labs after receiving fluids Will obtain postvoid residual to rule out component of incomplete bladder emptying. Avoid nephrotoxic medications Monitor I/O (5) Acute hyponatremia: Code(s): E87.1 - Hypo-osmolality and hyponatremia Status: Acute Assessment and Plan: The patient does have acute hyponatremia likely due to to hypovolemia on admission Hyponatremia has improved with IV fluid hydration, continue to monitor Time Spent With Patient Time with patient: Greater than 35 minutes Subjective Date/time seen: 02/19/25 09:02 Interval history: 70-year-old female with a past medical history of obesity, COPD with recent tobacco cessation, left breast cancer, and recent hysterectomy and bladder sling who presented to the ER with left lower abdominal pain and cough. Patient is pleasant sitting up comfortably in bed. She endorses increased shortness of breath relating this to disc getting back into bed from the commode. She continues able to speak full sentences but does feel that shortness of breath has worsened since admission. She denies any associated cough. She denies any chest pain or palpitations. She continues to endorse slight abdominal discomfort but denies any flank pain, nausea/vomiting. Review of Systems Review of Systems: All systems reviewed & are unremarkable except as noted in HPI and below Exam Narrative: AF HR 102 RR 22 SPO2 94 2L NC (baseline RA) BP 100/58 General: female in no acute respiratory distress who is nontoxic appearing, sitting up in bed. HEENT: Normocephalic. Atraumatic. Extraocular movement intact. Sclera clear and anicteric. No facial asymmetry. Chest: Audible wheezing with speech, speaking full sentences. Lungs slight wheezing in the uppers on expiration, otherwise clear. CV: Heart was regular rate and rhythm. Abd: Abdomen was soft. Nontender. Nondistended. Positive bowel sounds. Ext: No clubbing, cyanosis, or edema. DP pulses bilaterally. Neuro: Patient is alert. Speech is clear. Objective Data Vital Signs Vital Signs: Vital Signs - 24 hr 02/18/25 19:20 02/19/25 00:23 02/19/25 00:47 Temperature 98.8 F Pulse Rate 110 H 145 H 135 H Respiratory Rate 16 34 H 22 H Blood Pressure 101/63 176/89 H 113/69 Pulse Oximetry 97 97 92 Oxygen Delivery Room Air Oxygen Flow Rate 02/19/25 01:30 02/19/25 01:30 02/19/25 02:14 Temperature Pulse Rate 114 H Respiratory Rate 20 Blood Pressure 141/106 H Pulse Oximetry 89 L 95 96 Oxygen Delivery Room Air Nasal Cannula Oxygen Flow Rate 2 02/19/25 02:22 02/19/25 02:31 02/19/25 02:55 Temperature Pulse Rate 115 H 106 H 109 H Respiratory Rate 26 H 18 18 Blood Pressure 90/52 L 80/52 L 82/55 L Pulse Oximetry 95 97 97 Oxygen Delivery Oxygen Flow Rate 02/19/25 02:59 02/19/25 03:31 02/19/25 04:05 Temperature 96.9 F L Pulse Rate 110 H 106 H 110 H Respiratory Rate 23 H 24 H 20 Blood Pressure 98/50 L 114/69 82/38 L Pulse Oximetry 96 98 98 Oxygen Delivery Oxygen Flow Rate 02/19/25 04:45 02/19/25 06:00 02/19/25 07:50 Temperature 97 F L Pulse Rate 109 H 102 H Respiratory Rate 24 H 22 H Blood Pressure 90/50 L Pulse Oximetry 98 94 Oxygen Delivery Nasal Cannula Oxygen Flow Rate 2 02/19/25 07:59 02/19/25 08:00 Temperature 98.4 F Pulse Rate 91 105 H Respiratory Rate 18 22 H Blood Pressure 99/77 L Pulse Oximetry 91 Oxygen Delivery Oxygen Flow Rate Intake/Output Intake/Output: Intake & Output 02/16/25 02/17/25 02/18/25 02/19/25 23:59 23:59 23:59 23:59 Intake Total 1000 1745 Output Total 350 Balance 1000 1395 Meds/Results Medications: Active Medications Generic Name Dose Route Start Last Admin Trade Name Freq PRN Reason Stop Dose Admin Albuterol/Ipratropium 3 ml 02/19/25 08:00 02/19/25 07:46 Ipratropium 0.5 Mg/Albuterol Sulfate 2.5 Mg (Base) Ampul.Neb 3 Ml INHALATION 3 ml Q6HRT [facility] Administration Calcium Carbonate 500 mg 02/19/25 09:00 Calcium/Vitamin D 500 Mg/5 Mcg (200 I.U.) Tablet PO QAM [facility] Docusate Sodium 100 mg 02/19/25 09:00 Docusate Sodium 100 Mg Capsule PO BID [facility] Enoxaparin Sodium 40 mg 02/19/25 09:00 Enoxaparin 40 Mg/0.4 Ml Syringe SUB-Q DAILY [facility] Ceftriaxone Sodium 1 gm/ 50 mls @ 100 mls/hr 02/20/25 02:00 Sodium Chloride IVPB Q24H [facility] Methylprednisolone Sodium Succinate 40 mg 02/19/25 07:05 Methylprednisolone Sod Succ 40 Mg Vial IV PUSH Q6HR [facility] Tamoxifen Citrate 20 mg 02/19/25 09:00 Tamoxifen Citrate (*Chemo) 10 Mg Tablet PO DAILY [facility] Radiology Results: ITS Impressions Abdomen/Pelvis CT 02/19/25 06:50 IMPRESSION: 1. Bilateral pyelitis. Labs Labs: Laboratory Results - last 24 hr 02/18/25 02/18/25 02/19/25 22:29 23:17 01:19 WBC 14.4 H RBC 4.11 L Hgb 12.7 Hct 37.6 MCV 91.5 MCH 30.9 MCHC 33.8 RDW 13.9 Plt Count 156 MPV 8.9 Immature Gran % (Auto) 2.3 H Neut % (Auto) 83.7 H Lymph % (Auto) 7.6 L [place] % (Auto) 6.2 Eos % (Auto) 0.0 Baso % (Auto) 0.2 Lymph # (Auto) 1.10 [place] # (Auto) 0.9 H Eos # (Auto) 0.0 Baso # (Auto) 0.0 Abs Immat Gran (auto) 0.33 H Absolute Neuts (auto) 12.0 H Absolute Nucleated RBC 0.000 Nucleated RBC % 0.0 Sodium 126 L Potassium 4.1 Chloride 99 Carbon Dioxide 19 L Anion Gap 8 BUN 30 H D Creatinine 1.54 H Estim Creat Clear Calc Not Reportable Estimated GFR 33 L Glucose 172 H Lactic Acid 3.1 H Calcium 10.0 Total Bilirubin 1.2 AST 41 H ALT 26 Alkaline Phosphatase 82 Total Protein 7.1 Albumin 3.7 Lipase 13 L Urine Color Yellow Urine Appearance Turbid H Urine pH 5.5 Ur Specific [place] 1.020 Urine Protein 2+ H Urine Glucose (UA) Negative Urine Ketones Negative Ur Blood (Man) 3+ H Urine Nitrate Negative Urine Bilirubin Negative Urine Urobilinogen 1.0 Add Ur Microanalysis Reviewed Leukocyte Esterase Rfl 3+ H Urine RBC 3-5 H Urine WBC >100 H Urine WBC Clumps Present H Ur Squamous Epith Cells None seen Urine Bacteria 4+ H Urine Casts 3-5 02/19/25 05:49 WBC 12.9 H RBC 3.18 L Hgb 10.0 L Hct 30.1 L MCV 94.7 MCH 31.4 MCHC 33.2 RDW 14.0 Plt Count 109 L MPV 8.9 Immature Gran % (Auto) 3.1 H Neut % (Auto) 83.1 H Lymph % (Auto) 5.9 L [place] % (Auto) 6.6 Eos % (Auto) 0.9 Baso % (Auto) 0.4 Lymph # (Auto) 0.76 L [place] # (Auto) 0.9 H Eos # (Auto) 0.1 Baso # (Auto) 0.1 Abs Immat Gran (auto) 0.40 H Absolute Neuts (auto) 10.7 H Absolute Nucleated RBC 0.000 Nucleated RBC % 0.0 Sodium 130 L Potassium 3.4 Chloride 106 Carbon Dioxide 17 L Anion Gap 7 BUN 27 H Creatinine 1.69 H Estim Creat Clear Calc Not Reportable Estimated GFR 30 L Glucose 156 H Lactic Acid 2.3 H Calcium 8.2 L Total Bilirubin 0.8 AST 27 ALT 23 Alkaline Phosphatase 76 Total Protein 5.6 L Albumin 2.7 L Lipase Urine Color Urine Appearance Urine pH Ur Specific [place] Urine Protein Urine Glucose (UA) Urine Ketones Ur Blood (Man) Urine Nitrate Urine Bilirubin Urine Urobilinogen Add Ur Microanalysis Leukocyte Esterase Rfl Urine RBC Urine WBC Urine WBC Clumps Ur Squamous Epith Cells Urine Bacteria Urine Casts Quality VTE Prophylaxis VTE prophylaxis: pharmacologic ordered
[2025-02-19] MEDS: DOCUSATE SODIUM 100 MG CAPSULE PO ×2 (09:04→16:14)
[2025-02-19] MEDS: CALCIUM/VITAMIN D 500 MG/5 MCG (200 I.U.) TABLET PO (09:04)
[2025-02-19] MEDS: POTASSIUM CHLORIDE 20 MEQ ER TABLET 40 MEQ PO (09:05)
[2025-02-19] MEDS: ENOXAPARIN 40 MG/0.4 ML SYRINGE SUB-Q (09:05)
[2025-02-19] MEDS: ACETAMINOPHEN 500 MG TABLET PO (12:11)
--- NOTE | 2025-02-19 13:30 | PCRCNOTE ---
Spoke with Cecilia VILLEDA about seeing if pulmonary could be consulted. Asked if she can ask MD if we can increase Duoneb frequency to every 4 hr due to SOB.
[2025-02-19] MEDS: ENOXAPARIN 30 MG/0.3 ML SYRINGE SUB-Q (15:27)
[2025-02-19] MEDS: SODIUM CHLORIDE 0.9% IV 1,000 ML 125 ML IV CONT (15:27)
[2025-02-19] MEDS: CEFEPIME 1 GM in SODIUM CHLORIDE 0.9% IV 50 ML 100 ML IVPB (16:16)
[2025-02-19 17:13] LABS: NT Pro B Type Natriuretic Pept 5500 pg/mL (19.9-100)
[2025-02-19] MEDS: MIDODRINE HCL 10 MG TABLET PO (17:26)
[2025-02-20] VITALS (15 sets, daily range): BP systolic 95–115; BP diastolic 62–72; PULSE 79–106; RESP 17–24; TEMP 36.4–37; O2SAT 93–98
--- NOTE | 2025-02-20 | ECHO_ITS ---
Patient Info Name: Bonnie Jones Age: 70 years : 1955 Gender: Female Ht: 58 in Wt: 145 lbs BSA: 1.67 m2 HR: 102 bpm BP: 115 / 72 mmHg Technical Quality: Good Exam Date: 02/20/2025 10:04 AM Patient Status: I Admit Date: 02/19/2025 Exam Type: CA echo doppler color flow Complete two-dimensional, color flow and Doppler transthoracic echocardiogram is performed. Staff Referring Physician: Llay Pedraza Irrigation Equipment Installer: Zelalem De Leon III Attending Provider: Mitra Amaya DO Summary 1. Patient supine for exam. 2. Complete two-dimensional, color flow and Doppler transthoracic echocardiogram is performed. 3. The left ventricle is normal in size and systolic function. The left ventricular ejection fraction is visually estimated to be 60-65%. There is diastolic dysfunction. 4. The right ventricle is normal in size and systolic function. 5. There are no significant valvular abnormalities. Left Ventricle The left ventricle is normal in size and systolic function. The left ventricular ejection fraction is visually estimated to be 60-65%. There is diastolic dysfunction. Right Ventricle The right ventricle is normal in size and systolic function. Left Atria The left atrium is normal size. Right Atria The right atrium is normal size. Atrial Septum The atrial septum is not well visualized. Aortic Valve The aortic valve is trileaflet sclerotic. There is no aortic stenosis. There is no aortic regurgitation. Pulmonic Valve The pulmonic valve is not well visualized. Mitral Valve The mitral valve is normal. There is mild mitral regurgitation. Tricuspid Valve The tricuspid valve is grossly normal. Pericardium/Pleural There is trace pericardial effusion. Inferior Vena Cava Inferior vena cava is not well visualized. Aorta The aortic root at the level of the sinus of Valsalva measures 2.8 cm in diameter. Left Ventricular Outflow Tract Name Value Normal LVOT 2D LVOT Diameter 2.1 cm LVOT Doppler LVOT Peak Velocity 128 cm/s LVOT Peak Gradient 7 mmHg LVOT Mean Gradient 3 mmHg LVOT VTI 24 cm LVOT VTI/AV VTI Ratio 0.9 LVOT Stroke Volume 84 ml LVOT CO 8.5 l/min LVOT CI 5.1 l/min/m2 Pulmonic Valve Name Value Normal PV Doppler PV Peak Velocity 99 cm/s PV Peak Gradient 4 mmHg PV Mean Gradient 2 mmHg Mitral Valve Name Value Normal MV Doppler MV Peak Gradient 8 mmHg MV Mean Gradient 4 mmHg MV Area (Cont Eq VTI) 3.6 cm2 MV Regurgitation Doppler MR Peak Gradient 97 mmHg MV Diastolic Function MV E Peak Velocity 139 cm/s MV A Peak Velocity 1 cm/s MV E/A 141.6 MV Decel Time (PW) 118 ms MV Annular TDI MV E/e' (Septal) 13.7 MV E/e' (Lateral) 12.6 MV E/e' (Average) 13.1 Tricuspid Valve Name Value Normal TV Annular TDI TV Lateral Sari s' Velocity 17.9 cm/s >=9.5 Aortic Valve Name Value Normal AV Doppler AV Peak Velocity 161 cm/s AV Peak Gradient 10 mmHg AV Mean Gradient 5 mmHg AV VTI 28 cm AV Area (Cont Eq VTI) 3.0 cm2 >=3.0 AV Area (Cont Eq Matthew) 2.7 cm2 AV DI (Matthew) 0.80 AV Regurgitation 2D LVOT Area 3.4 cm2 Ventricles Name Value Normal LV Dimensions 2D/MM IVS Diastolic Thickness (2D) 0.8 cm 0.6-1.0 LVID Diastole (2D) 4.3 cm 3.8-5.2 LVIW Diastolic Thickness (2D) 0.9 cm 0.6-0.9 LVID Systole (2D) 2.5 cm 2.2-3.5 LVOT Diameter 2.1 cm LV Mass (2D Cubed) 114.19 g 67.00-162.00 LV Mass Index (2D Cubed) 68 g/m2 43-95 Relative Wall Thickness (2D) 0.39 <=0.42 LV Fractional Shortening/Ejection Fraction 2D/MM LV Fractional Shortening (2D) 43 % 27-45 LV EF (2D Teichholz) 74 % LV Diastolic Volume (4C MOD) 40 ml LV EF (4C MOD) 68 % LV Diastolic Volume (2C MOD) 39 ml LV EF (2C MOD) 64 % LV Diastolic Volume (BP MOD) 41 ml 46-106 LV Diastolic Volume Index (BP MOD) 25 ml/m2 29-61 LV Systolic Volume (BP MOD) 14 ml 14-42 LV Systolic Volume Index (BP MOD) 9 ml/m2 8-24 LV EF (BP MOD) 65 % 54-74 LV Diastolic Length (4C) 7.2 cm LV Systolic Length (4C) 5.8 cm LV Stroke Volume (4C MOD) 27 ml Atria Name Value Normal LA Dimensions LA Volume (4C A-L) 39 ml LA Volume (BP A-L) 43 ml RA Dimensions RA Systolic Major [place] Length (4C) 5.1 cm 2.2-2.8 RA Area (4C) 15.7 cm2 <=18.0 Report Signatures
[2025-02-20] MEDS: SODIUM CHLORIDE 0.9% IV 1,000 ML 125 ML IV CONT ×2 (00:11→08:28)
[2025-02-20] MEDS: IPRATROPIUM 0.5 MG/ALBUTEROL SULFATE 2.5 MG (BASE) AMPUL.NEB 3 ML INHALATION ×4 (01:00→20:15)
[2025-02-20 05:52] LABS: Hematocrit 30.5 % (37.0-47.0); Hemoglobin 9.6 g/dL (12.0-15.0); Immature Platelet Fraction Pct 4.2 % (0.9-11.2); Mean Corpuscular HGB Conc 31.5 g/dl (32-36); Mean Corpuscular Hemoglobin 31.1 pg (26-34); Mean Corpuscular Volume 98.7 fl (80-100); Platelet Count Result 85 k/mm3 (150-375); Red Blood Count 3.09 M/mm3 (4.2-5.4); White Blood Count 8.5 K/mm3 (4.5-10.0)
[2025-02-20 06:03] LABS: Alanine Aminotransferase 28 U/L (6-35); Albumin Level 2.9 g/dL (3.5-5.1); Alkaline Phosphatase 70 U/L (38-126); Anion Gap 8 mmol/L (4-12); Aspartate Amino Transferase 30 U/L (14-36); Bilirubin,Total 0.5 mg/dL (0.2-1.3); Blood Urea Nitrogen 28 mg/dL (7-17); Calcium 9.0 mg/dL (8.4-10.2); Carbon Dioxide 13 mmol/L (22-30); Chloride 116 mmol/L (98-107); Estimated Glomerular Filt Rate 40; Glucose 236 mg/dL (65-110); Potassium 4.1 mmol/L (3.4-5.0); Sodium 137 mmol/L (137-145); Total Protein 6.1 g/dL (6.3-8.2)
--- NOTE | 2025-02-20 08:06 | PM.IMPN ---
Progress Note: A&P Assessment and Plan (1) Severe sepsis: Code(s): A41.9 - Sepsis, unspecified organism; R65.20 - Severe sepsis without septic shock Status: Acute Assessment and Plan: Meets SIRS criteria: persistent lactic acidosis after 30 mL/kilos fluid bolus, leukocytosis, tachycardia and tachypnea The patient appears intervascular volume depleted and has persistent lactic acidosis and borderline low blood pressures. Will give an additional 1 L fluid bolus and then switch back to fluids at 150 mL an hour. - lactic acid: Lactic 3.1 >> 2.3 on am labs, now uptrending on repeat On admission patient appeared intervascular volume depleted and had persistent lactic acidosis and borderline low blood pressures, received sepsis bolus and 1L additional bolus and was placed on 150 ml/hr IV fluids. - suspected source: pyelonephritis - blood cultures drawn on 02/18: pending - UA concerning for infection - Urine culture: pending - Chest XR: Mild CHF - CT abdomen/pelvis: Bilateral pyelitis Patient WBC WNL. Lactic remains elevated but improved. Possible that lactic acidosis is related hypoxemia due to ongoing SOB with new o2 need vs hypotension causing decreased perfusion. ABG showing well compensated hypocapnia likely related to tachypnea. See plan for acute hypoxia below. Patient also started on midodrine for hypotension with BP improvement. Will repeat lactic in the am to continue to monitor. Have discontinued fluids given patients CHF on imaging. Remains tachycardic but blood pressures stable. Continue to monitor. (2) Acute hypoxic respiratory failure: Code(s): J96.01 - Acute respiratory failure with hypoxia Status: Acute Assessment and Plan: - Symptoms: worsening shortness of breath that is further exacerbated with ambulation - Oxygen supplementation: 1L NC, baseline RA - Suspected cause: COPD vs CHF vs PE vs other - Increased risk of PE given cancer history on hormone therapy, age, symptoms, recent hysterectomy on 01/07. Wells criteria 5.5 and Perc rule 4 Started on therapeutic Lovenox 66 mg/kg daily (renal dosing) on 02/19, VQ scan showed low suspicion thus Lovenox dc - On admission there was concern for COPD exacerbation as patient does have audible wheezing. Started on scheduled nebulizer treatments with DuoNeb q.4 hours. and IV Solu-Medrol 40 mg q.6 hours. - Chest XR showing mild CHF Echo obtained and showed LVEF 60-65% with grade I diastolic dysfunction and no valvular abnormalities Given lasix 20 mg IV x1 today, will obtain a repeat Chest XR in the am to reassess ABG showed well compensated hypocapnia likely related to patients tachypnea. Given lasix x1 for concern of volume overload as seen on chest xr related to aggressive fluids given patient being septic on admission. (3) Acute pyelonephritis: Code(s): N10 - Acute pyelonephritis Status: Acute Assessment and Plan: Patient has acute pyelonephritis and meets criteria for severe sepsis. Patient reports persistent urinary frequency despite pelvic suspension procedure December. Will obtain postvoid residual to rule out component of incomplete bladder emptying. Antibiotics: Rocephin started on 02/18, broadened to cefepime on 02/19 Will monitor strict I&O's and daily weights. Will avoid nephrotoxic medications. WBC WNL. Remains on antibiotics as above. Renal function improving on am labs. UOP stable. (4) Acute kidney injury: Code(s): N17.9 - Acute kidney failure, unspecified Status: Acute Assessment and Plan: BUN/Cr 30/1.54 with GFR 33 on admission Likely related to ongoing sepsis hypotension causing decreased perfusion vs hypovolemia vs pyelonephritis BUN/Cr improving on am labs after receiving fluids Will obtain postvoid residual to rule out component of incomplete bladder emptying. Avoid nephrotoxic medications Monitor I/O Renal function improving on am labs. UOP stable. (5) Acute hyponatremia: Code(s): E87.1 - Hypo-osmolality and hyponatremia Status: Acute Assessment and Plan: The patient does have acute hyponatremia likely due to to hypovolemia on admission Hyponatremia has improved with IV fluid hydration, continue to monitor Resolved. Time Spent With Patient Time with patient: 25 - 35 minutes Subjective Date/time seen: 02/20/25 08:06 Interval history: 70-year-old female with a past medical history of obesity, COPD with recent tobacco cessation, left breast cancer, and recent hysterectomy and bladder sling who presented to the ER with left lower abdominal pain and cough. Patient is pleasant sitting up comfortably in bed. She continues to endorse shortness of breath but notes it has slightly improved since yesterday. Attempted to wean patient's oxygen supplementation during assessment however she desatted to the upper 80s with any movement. She was resumed on 1 L nasal cannula. She denies any associated cough with shortness of breath. She has no complaints denying chest pain, palpitations, nausea vomiting, and abdominal pain. Review of Systems Review of Systems: All systems reviewed & are unremarkable except as noted in HPI and below Exam Narrative: AF HR 79 RR 22 SpO2 93 2L NC (baseline RA) BP 107/69 General: female in no acute respiratory distress who is nontoxic appearing, sitting up in bed. HEENT: Normocephalic. Atraumatic. Extraocular movement intact. Sclera clear and anicteric. No facial asymmetry. Chest: Lungs have RLL crackles, no noted wheezing. Speaking 4-5 words with each breath. CV: Heart was regular rate and rhythm. Abd: Abdomen was soft. Nontender. Nondistended. Positive bowel sounds. Ext: No clubbing, cyanosis, or edema. DP pulses bilaterally. Neuro: Patient is alert. Speech is clear. Objective Data Vital Signs Vital Signs: Vital Signs - 24 hr 02/19/25 12:00 02/19/25 13:17 02/19/25 13:17 Temperature 97.6 F Pulse Rate 83 92 92 Respiratory Rate 22 H 20 22 H Blood Pressure 83/39 L Pulse Oximetry 91 94 Oxygen Delivery Nasal Cannula Oxygen Flow Rate 2 02/19/25 13:31 02/19/25 13:56 02/19/25 14:00 Temperature 98.2 F Pulse Rate 102 H 85 Respiratory Rate 22 H 22 H Blood Pressure 100/58 L 84/47 L Pulse Oximetry 92 Oxygen Delivery Oxygen Flow Rate 02/19/25 16:00 02/19/25 19:38 02/19/25 19:38 Temperature 97.6 F Pulse Rate 82 101 H Respiratory Rate 20 22 H Blood Pressure 99/53 L Pulse Oximetry 91 94 Oxygen Delivery Nasal Cannula Oxygen Flow Rate 2 02/19/25 19:47 02/19/25 20:00 02/19/25 20:17 Temperature 99.0 F Pulse Rate 102 H 114 H 114 H Respiratory Rate 22 H 16 Blood Pressure 107/52 L Pulse Oximetry 100 100 Oxygen Delivery Nasal Cannula Oxygen Flow Rate 2.5 02/20/25 00:00 02/20/25 01:00 02/20/25 01:10 Temperature 98.6 F Pulse Rate 104 H 99 102 H Respiratory Rate 17 22 H 22 H Blood Pressure 95/62 L Pulse Oximetry 96 Oxygen Delivery Oxygen Flow Rate 02/20/25 04:00 02/20/25 07:21 02/20/25 07:24 Temperature 98.2 F Pulse Rate 102 H 106 H Respiratory Rate 22 H 24 H Blood Pressure 115/72 Pulse Oximetry 96 95 Oxygen Delivery Nasal Cannula Oxygen Flow Rate 2 02/20/25 07:30 Temperature Pulse Rate 101 H Respiratory Rate 24 H Blood Pressure Pulse Oximetry Oxygen Delivery Oxygen Flow Rate Intake/Output Intake/Output: Intake & Output 02/17/25 02/18/25 02/19/25 02/20/25 23:59 23:59 23:59 23:59 Intake Total 1000 3225 300 Output Total 1450 Balance 1000 1775 300 Meds/Results Medications: Active Medications Generic Name Dose Route Start Last Admin Trade Name Freq PRN Reason Stop Dose Admin Acetaminophen 500 mg 02/19/25 10:52 02/19/25 12:11 Acetaminophen 500 Mg Tablet PO 500 mg Q6H PRN Administration Mild Pain (1-3) or Fever Albuterol/Ipratropium 3 ml 02/19/25 08:00 02/20/25 07:20 Ipratropium 0.5 Mg/Albuterol Sulfate 2.5 Mg (Base) Ampul.Neb 3 Ml INHALATION 3 ml Q6HRT LISSETTE Administration Calcium Carbonate 500 mg 02/19/25 09:00 02/19/25 09:04 Calcium/Vitamin D 500 Mg/5 Mcg (200 I.U.) Tablet PO 500 mg QAM LISSETTE Administration Docusate Sodium 100 mg 02/19/25 09:00 02/19/25 16:14 Docusate Sodium 100 Mg Capsule PO 100 mg BID LISSETTE Administration Enoxaparin Sodium 40 mg 02/19/25 09:00 02/19/25 09:05 Enoxaparin 40 Mg/0.4 Ml Syringe SUB-Q 40 mg DAILY [facility]IS[facility] Administration Cefepime HCl 1 gm/ Sodium 50 mls @ 100 mls/hr 02/19/25 16:00 02/19/25 16:16 Chloride IVPB 100 mls/hr Q24H [facility]IS[facility] Administration Sodium Chloride 1,000 mls @ 125 mls/hr 02/19/25 14:50 02/20/25 00:11 Normal Saline Iv IV CONT 125 mls/hr .Q8H LIS[facility]TE Administration Methylprednisolone Sodium Succinate 40 mg 02/19/25 16:00 02/20/25 04:15 Methylprednisolone Sod Succ 40 Mg Vial IV PUSH 40 mg Q4H LISSETTE Administration Midodrine 10 mg 02/19/25 17:00 02/19/25 17:26 Midodrine Hcl 10 Mg Tablet PO 10 mg TID LISSETTE Administration Perflutren Lipid Microsphere 0 ml 02/19/25 14:59 Perflutren Lipid Microspheres 1.5 Ml Vial Diluted To 10 Ml Total Volume IV PUSH 02/22/25 14:59 ONCE PRN adequate visualization Protocol Tamoxifen Citrate 20 mg 02/19/25 09:00 02/19/25 09:07 Tamoxifen Citrate (*Chemo) 10 Mg Tablet PO Not Given DAILY [facility] Radiology Results: ITS Impressions Abdomen/Pelvis CT 02/19/25 06:50 IMPRESSION: 1. Bilateral pyelitis. Chest X-Ray 02/19/25 14:52 Impression: Mild CHF Pulmonary Perfusion Imaging 02/19/25 15:24 IMPRESSION: Low suspicion VQ scan; findings consistent with low probability of pulmonary embolus. Labs Labs: Laboratory Results - last 24 hr 02/19/25 02/19/25 02/19/25 05:49 13:57 16:38 WBC RBC Hgb Hct MCV MCH MCHC RDW Plt Count MPV % Immature Plt Fraction Sodium Potassium Chloride Carbon Dioxide Anion Gap BUN Creatinine Estim Creat Clear Calc Estimated GFR Glucose Lactic Acid 4.1 H* 4.6 H* Calcium Total Bilirubin AST ALT Alkaline Phosphatase NT-Pro-B Natriuret Pep 5500 H Total Protein Albumin 02/20/25 05:33 WBC 8.5 RBC 3.09 L Hgb 9.6 L Hct 30.5 L MCV 98.7 MCH 31.1 MCHC 31.5 L RDW 14.5 Plt Count 85 L MPV 10.8 H % Immature Plt Fraction 4.2 Sodium 137 Potassium 4.1 Chloride 116 H Carbon Dioxide 13 L Anion Gap 8 BUN 28 H Creatinine 1.33 H Estim Creat Clear Calc Not Reportable Estimated GFR 40 L Glucose 236 H Lactic Acid Calcium 9.0 Total Bilirubin 0.5 AST 30 ALT 28 Alkaline Phosphatase 70 NT-Pro-B Natriuret Pep Total Protein 6.1 L Albumin 2.9 L Quality VTE Prophylaxis VTE prophylaxis: pharmacologic ordered
[2025-02-20] MEDS: CALCIUM/VITAMIN D 500 MG/5 MCG (200 I.U.) TABLET PO (08:20)
[2025-02-20] MEDS: DOCUSATE SODIUM 100 MG CAPSULE PO ×2 (08:20→17:12)
[2025-02-20] MEDS: MIDODRINE HCL 10 MG TABLET PO ×3 (08:20→17:12)
[2025-02-20] MEDS: FUROSEMIDE INJ 40 MG/4 ML VIAL 20 MG IV PUSH (12:47)
[2025-02-20 13:36] LABS: Alveolar/Arterial O2 Gradient 99.2 mmHg; Fractional Inspired Oxygen 28 %; HCO3 ABG 14.5 mEq/l (22.0-26.0); Oxygen Content ABG 16.2 %vol (16.0-22.0); Oxygen Saturation ABG 95.2 % (95.0-100.0); PO2 ABG 72.8 mmHg (80.0-100.0); PO2 FiO2 Ratio Arterial Blood 2.60 %
[2025-02-20 13:46] LABS: Liters per Minute 1.0 LPM; Modified Allen's Test Pass; PCO2 ABG 23.4 mmHg (35.0-45.0); Site Drawn RIGHT RADIAL
[2025-02-20] MEDS: CEFEPIME 1 GM in SODIUM CHLORIDE 0.9% IV 50 ML 100 ML IVPB (15:21)
[2025-02-21] VITALS (12 sets, daily range): BP systolic 102–121; BP diastolic 55–75; PULSE 81–105; RESP 17–20; TEMP 36.1–36.7; O2SAT 96–99
[2025-02-21] MEDS: IPRATROPIUM 0.5 MG/ALBUTEROL SULFATE 2.5 MG (BASE) AMPUL.NEB 3 ML INHALATION ×4 (02:19→21:15)
[2025-02-21] MEDS: CEFEPIME 1 GM in SODIUM CHLORIDE 0.9% IV 50 ML 100 ML IVPB ×2 (03:32→16:58)
[2025-02-21 05:07] LABS: Hematocrit 29.1 % (37.0-47.0); Hemoglobin 9.4 g/dL (12.0-15.0); Mean Corpuscular HGB Conc 32.3 g/dl (32-36); Mean Corpuscular Hemoglobin 31.0 pg (26-34); Mean Corpuscular Volume 96.0 fl (80-100); Platelet Count Result 118 k/mm3 (150-375); Red Blood Count 3.03 M/mm3 (4.2-5.4); White Blood Count 7.3 K/mm3 (4.5-10.0)
[2025-02-21 05:30] LABS: Alanine Aminotransferase 33 U/L (6-35); Albumin Level 3.0 g/dL (3.5-5.1); Alkaline Phosphatase 93 U/L (38-126); Aspartate Amino Transferase 24 U/L (14-36); Bilirubin,Total 0.4 mg/dL (0.2-1.3); Blood Urea Nitrogen 40 mg/dL (7-17); Carbon Dioxide 15 mmol/L (22-30); Estimated Glomerular Filt Rate 39
[2025-02-21 05:41] LABS: Anion Gap 16 mmol/L (4-12); Calcium 10.0 mg/dL (8.4-10.2); Chloride 110 mmol/L (98-107); Glucose 333 mg/dL (65-110); Potassium 3.8 mmol/L (3.4-5.0); Sodium 141 mmol/L (137-145); Total Protein 6.1 g/dL (6.3-8.2)
--- NOTE | 2025-02-21 08:32 | P.PNIM_ITS ---
Progress Note: A&P Assessment and Plan (1) Severe sepsis: Code(s): A41.9 - Sepsis, unspecified organism; R65.20 - Severe sepsis without septic shock Status: Acute Assessment and Plan: Meets SIRS criteria: persistent lactic acidosis after 30 mL/kilos fluid bolus, leukocytosis, tachycardia and tachypnea The patient appears intervascular volume depleted and has persistent lactic acidosis and borderline low blood pressures. Will give an additional 1 L fluid bolus and then switch back to fluids at 150 mL an hour. - lactic acid: Lactic 3.1 >> 2.3 on am labs, now uptrending on repeat On admission patient appeared intervascular volume depleted and had persistent lactic acidosis and borderline low blood pressures, received sepsis bolus and 1L additional bolus and was placed on 150 ml/hr IV fluids. - suspected source: pyelonephritis - blood cultures drawn on 02/18: ecoli with sensitive pending - UA concerning for infection - Urine culture: gram negative bacilli, likely ecoli given bacteremia - Chest XR: Mild CHF, repeat CXR showing CHF - CT abdomen/pelvis: Bilateral pyelitis Vitals stable. Patient WBC WNL. Lactic remains elevated but continued to improve, again possibly related to patients prior hypoxia vs hypotension vs albuterol induced. Continue to monitor. (2) Acute hypoxic respiratory failure: Code(s): J96.01 - Acute respiratory failure with hypoxia Status: Acute Assessment and Plan: - Symptoms: worsening shortness of breath that is further exacerbated with ambulation - Oxygen supplementation: weaned back to room air - Suspected cause: COPD vs CHF vs PE vs other - Increased risk of PE given cancer history on hormone therapy, age, symptoms, recent hysterectomy on 01/07. Wells criteria 5.5 and Perc rule 4 Started on therapeutic Lovenox 66 mg/kg daily (renal dosing) on 02/19, VQ scan showed low suspicion thus Lovenox dc - On admission there was concern for COPD exacerbation as patient does have audible wheezing. Started on scheduled nebulizer treatments with DuoNeb q.4 hours. and IV Solu- Medrol 40 mg q.6 hours. Transitioned to oral prednisone on 02/21. - Chest XR showing mild CHF, repeat CXR showing CHF BNP 5500 Echo obtained and showed LVEF 60-65% with grade I diastolic dysfunction and no valvular abnormalities Given lasix 20 mg IV x1 on 02/21 - ABG showed well compensated hypocapnia likely related to patients tachypnea. Patient weaned back to room air with stable saturations. Lungs are clear and she is speaking full sentences stating SOB has significantly improved. Remains on prednisone to complete the course. (3) Acute pyelonephritis: Code(s): N10 - Acute pyelonephritis Status: Acute Assessment and Plan: Patient has acute pyelonephritis and meets criteria for severe sepsis. Patient reports persistent urinary frequency despite pelvic suspension procedure December. Will obtain postvoid residual to rule out component of incomplete bladder emptying. Antibiotics: Rocephin started on 02/18, broadened to cefepime on 02/19 Urine culture: gram negative bacilli, likely ecoli given bacteremia Will monitor strict I&O's and daily weights. Will avoid nephrotoxic medications. WBC WNL. Remains on antibiotics as above. Transition to oral antibiotics based on sensitivities. (4) Acute kidney injury: Code(s): N17.9 - Acute kidney failure, unspecified Status: Acute Assessment and Plan: BUN/Cr 30/1.54 with GFR 33 on admission Likely related to ongoing sepsis hypotension causing decreased perfusion vs hypovolemia vs pyelonephritis BUN/Cr improving on am labs after receiving fluids Will obtain postvoid residual to rule out component of incomplete bladder emptying. Avoid nephrotoxic medications Monitor I/O Renal function stable. UOP WNL. (5) Acute hyponatremia: Code(s): E87.1 - Hypo-osmolality and hyponatremia Status: Acute Assessment and Plan: The patient does have acute hyponatremia likely due to to hypovolemia on admission Hyponatremia has improved with IV fluid hydration, continue to monitor Resolved. Time Spent With Patient Time with patient: 25 - 35 minutes Subjective Date/time seen: 02/21/25 08:32 Interval history: 70-year-old female with a past medical history of obesity, COPD with recent tobacco cessation, left breast cancer, and recent hysterectomy and bladder sling who presented to the ER with left lower abdominal pain and cough. Patient is pleasant ambulating throughout the room on room air. She states she is feeling much better today. She continues to endorse slight shortness of breath but again much better since admission. She denies any associated cough. She has no other complaints denying chest pain, palpitations, nausea/vomiting, abdominal pain, dizziness/lightheadedness. She also denies any UTI like symptoms including dysuria, hematuria, flank pain, or burning sensation. Review of Systems Review of Systems: All systems reviewed & are unremarkable except as noted in HPI and below Exam Narrative: AF HR 93 RR 18 SPO2 97 RA BP 111/62 General: female in no acute respiratory distress who is nontoxic appearing, sitting up in bed. HEENT: Normocephalic. Atraumatic. Extraocular movement intact. Sclera clear and anicteric. No facial asymmetry. Chest: Lungs clear, no noted wheezing. Speaking full sentences. CV: Heart was regular rate and rhythm. Abd: Abdomen was soft. Nontender. Nondistended. Positive bowel sounds. Ext: No clubbing, cyanosis, or edema. DP pulses bilaterally. Neuro: Patient is alert. Speech is clear. Objective Data Vital Signs Vital Signs: Vital Signs - 24 hr 02/20/25 13:43 02/20/25 14:00 02/20/25 16:00 Temperature 97.6 F Pulse Rate 102 H 106 H 81 Respiratory Rate 24 H 24 H 18 Blood Pressure 105/68 Pulse Oximetry 94 Oxygen Delivery Oxygen Flow Rate 02/20/25 20:00 02/20/25 20:15 02/20/25 20:15 Temperature Pulse Rate 83 Respiratory Rate 22 H Blood Pressure Pulse Oximetry 94 95 Oxygen Delivery Nasal Cannula Nasal Cannula Oxygen Flow Rate 1 2 02/20/25 20:21 02/20/25 21:05 02/21/25 02:19 Temperature 98.5 F Pulse Rate 87 93 85 Respiratory Rate 22 H 20 18 Blood Pressure 112/67 Pulse Oximetry 98 Oxygen Delivery Oxygen Flow Rate 02/21/25 02:25 02/21/25 05:31 02/21/25 08:00 Temperature 98.0 F 97.6 F Pulse Rate 81 97 87 Respiratory Rate 18 20 20 Blood Pressure 102/55 L 111/62 Pulse Oximetry 99 99 Oxygen Delivery Oxygen Flow Rate Intake/Output Intake/Output: Intake & Output 02/18/25 02/19/25 02/20/25 02/21/25 23:59 23:59 23:59 23:59 Intake Total 1000 3225 2070 790 Output Total 1450 400 Balance 1000 1775 2070 390 Meds/Results Medications: Active Medications Generic Name Dose Route Start Last Admin Trade Name Freq PRN Reason Stop Dose Admin Acetaminophen 500 mg 02/19/25 10:52 02/19/25 12:11 Acetaminophen 500 Mg Tablet PO 500 mg Q6H PRN Administration Mild Pain (1-3) or Fever Albuterol 2 puff 02/20/25 14:10 Albuterol Sulfate (*Sp) Aerosol 1 Puff INHALATION Q4-6H PRN Shortness Of Breath Or Wheezing Albuterol/Ipratropium 3 ml 02/19/25 08:00 02/21/25 08:31 Ipratropium 0.5 Mg/Albuterol Sulfate 2.5 Mg (Base) Ampul.Neb 3 Ml INHALATION 3 ml Q6HRT LISSETTE Administration Calcium Carbonate 500 mg 02/19/25 09:00 02/20/25 08:20 Calcium/Vitamin D 500 Mg/5 Mcg (200 I.U.) Tablet PO 500 mg QAM LISSETTE Administration Docusate Sodium 100 mg 02/19/25 09:00 02/20/25 17:12 Docusate Sodium 100 Mg Capsule PO 100 mg BID LISSETTE Administration Enoxaparin Sodium 40 mg 02/19/25 09:00 02/20/25 09:00 Enoxaparin 40 Mg/0.4 Ml Syringe SUB-Q Not Given DAILY LISSETTE Hydroxyzine HCl 10 mg 02/20/25 14:20 Hydroxyzine Hcl 10 Mg Tablet PO Q6H PRN Anxiety Sodium Chloride 1,000 mls @ 125 mls/hr 02/19/25 14:50 02/20/25 08:28 Normal Saline Iv IV CONT 125 mls/hr On Hold: 02/20/25 11:32 .Q8H LISSETTE Administration Comment: holding until latic acid results Cefepime HCl 1 gm/ Sodium 50 mls @ 100 mls/hr 02/20/25 15:00 02/21/25 04:02 Chloride IVPB Infused Q12H LISSETTE Infusion Methylprednisolone Sodium Succinate 40 mg 02/19/25 16:00 02/21/25 03:32 Methylprednisolone Sod Succ 40 Mg Vial IV PUSH 40 mg Q4H LISSETTE Administration Midodrine 10 mg 02/19/25 17:00 02/20/25 17:12 Midodrine Hcl 10 Mg Tablet PO 10 mg TID LISSETTE Administration Perflutren Lipid Microsphere 0 ml 02/19/25 14:59 Perflutren Lipid Microspheres 1.5 Ml Vial Diluted To 10 Ml Total Volume IV PUSH 02/22/25 14:59 ONCE PRN adequate visualization Protocol Tamoxifen Citrate 20 mg 02/19/25 09:00 02/20/25 08:29 Tamoxifen Citrate (*Chemo) 10 Mg Tablet PO Not Given DAILY [facility] Radiology Results: ITS Impressions Abdomen/Pelvis CT 02/19/25 06:50 IMPRESSION: 1. Bilateral pyelitis. Pulmonary Perfusion Imaging 02/19/25 15:24 IMPRESSION: Low suspicion VQ scan; findings consistent with low probability of pulmonary embolus. Chest X-Ray 02/20/25 14:28 Impression: CHF Labs Labs: Laboratory Results - last 24 hr 02/20/25 02/20/25 02/20/25 08:49 11:05 13:27 WBC RBC Hgb Hct MCV MCH MCHC RDW Plt Count MPV Puncture Site Right radial ABG pH 7.410 ABG pCO2 23.4 L* ABG pO2 72.8 L ABG PO2/FiO2 Ratio 2.60 ABG HCO3 14.5 L ABG O2 Saturation 95.2 ABG O2 Content 16.2 ABG Base Excess -8.3 A-a Gradient 99.2 Oxyhemoglobin 94.8 Total Hemoglobin 12.1 O2 Delivery Device Nasal cannula O2 Liters/Min 1.0 FiO2 28 Sodium Potassium Chloride Carbon Dioxide Anion Gap BUN Creatinine Estim Creat Clear Calc Estimated GFR Glucose Lactic Acid 2.5 H 2.9 H Calcium Total Bilirubin AST ALT Alkaline Phosphatase Total Protein Albumin 02/21/25 02/21/25 04:59 07:33 WBC 7.3 RBC 3.03 L Hgb 9.4 L Hct 29.1 L MCV 96.0 MCH 31.0 MCHC 32.3 RDW 14.5 Plt Count 118 L MPV 9.8 Puncture Site ABG pH ABG pCO2 ABG pO2 ABG PO2/FiO2 Ratio ABG HCO3 ABG O2 Saturation ABG O2 Content ABG Base Excess A-a Gradient Oxyhemoglobin Total Hemoglobin O2 Delivery Device O2 Liters/Min FiO2 Sodium 141 Potassium 3.8 Chloride 110 H Carbon Dioxide 15 L Anion Gap 16 H BUN 40 H D Creatinine 1.35 H Estim Creat Clear Calc Not Reportable Estimated GFR 39 L Glucose 333 H Lactic Acid 3.4 H 2.5 H Calcium 10.0 Total Bilirubin 0.4 AST 24 ALT 33 Alkaline Phosphatase 93 Total Protein 6.1 L Albumin 3.0 L Quality VTE Prophylaxis VTE prophylaxis: pharmacologic ordered
[2025-02-21] MEDS: ENOXAPARIN 40 MG/0.4 ML SYRINGE SUB-Q (09:10)
[2025-02-21] MEDS: CALCIUM/VITAMIN D 500 MG/5 MCG (200 I.U.) TABLET PO (09:10)
[2025-02-21] MEDS: MIDODRINE HCL 10 MG TABLET PO ×3 (09:11→16:58)
[2025-02-21] MEDS: TAMOXIFEN CITRATE (*CHEMO) 10 MG TABLET 20 MG PO (09:11)
[2025-02-21] MEDS: DOCUSATE SODIUM 100 MG CAPSULE PO ×2 (09:11→16:58)
[2025-02-21] MEDS: ACETAMINOPHEN 500 MG TABLET PO (09:17)
[2025-02-21] MEDS: ALBUTEROL SULFATE (*SP) AEROSOL 1 PUFF 2 PUFF INHALATION (17:47)
[2025-02-22] VITALS (16 sets, daily range): BP systolic 102–139; BP diastolic 54–83; PULSE 85–115; RESP 14–20; TEMP 36.4–36.8; O2SAT 94–98
[2025-02-22] MEDS: ACETAMINOPHEN 500 MG TABLET PO ×2 (01:56→08:46)
[2025-02-22] MEDS: IPRATROPIUM 0.5 MG/ALBUTEROL SULFATE 2.5 MG (BASE) AMPUL.NEB 3 ML INHALATION ×3 (02:00→14:10)
[2025-02-22] MEDS: CEFEPIME 1 GM in SODIUM CHLORIDE 0.9% IV 50 ML 100 ML IVPB (02:59)
[2025-02-22 06:06] LABS: Hematocrit 31.0 % (37.0-47.0); Hemoglobin 10.1 g/dL (12.0-15.0); Mean Corpuscular HGB Conc 32.6 g/dl (32-36); Mean Corpuscular Hemoglobin 30.7 pg (26-34); Mean Corpuscular Volume 94.2 fl (80-100); Platelet Count Result 149 k/mm3 (150-375); Red Blood Count 3.29 M/mm3 (4.2-5.4); White Blood Count 8.2 K/mm3 (4.5-10.0)
[2025-02-22] MEDS: LIDOCAINE 5% PATCH 1 PATCH TRANSDERM (06:23)
[2025-02-22 06:40] LABS: Alanine Aminotransferase 38 U/L (6-35); Albumin Level 3.1 g/dL (3.5-5.1); Alkaline Phosphatase 111 U/L (38-126); Anion Gap 9 mmol/L (4-12); Aspartate Amino Transferase 29 U/L (14-36); Bilirubin,Total 0.4 mg/dL (0.2-1.3); Blood Urea Nitrogen 35 mg/dL (7-17); Calcium 10.5 mg/dL (8.4-10.2); Carbon Dioxide 16 mmol/L (22-30); Chloride 110 mmol/L (98-107); Estimated Glomerular Filt Rate 43; Glucose 199 mg/dL (65-110); Potassium 3.5 mmol/L (3.4-5.0); Sodium 135 mmol/L (137-145); Total Protein 6.4 g/dL (6.3-8.2)
--- NOTE | 2025-02-22 08:22 | PM.IMPN ---
Progress Note: A&P Assessment and Plan (1) Severe sepsis: Code(s): A41.9 - Sepsis, unspecified organism; R65.20 - Severe sepsis without septic shock Status: Acute Assessment and Plan: Meets SIRS criteria: persistent lactic acidosis after 30 mL/kilos fluid bolus, leukocytosis, tachycardia and tachypnea - lactic acid: Lactic 3.1 >> 2.3 on am labs, now uptrending on repeat On admission patient appeared intervascular volume depleted and had persistent lactic acidosis and borderline low blood pressures, received sepsis bolus and 1L additional bolus and was placed on 150 ml/hr IV fluids. IV fluids have since been discontinued. - suspected source: pyelonephritis - blood cultures drawn on 02/18: ecoli with sensitive pending - UA concerning for infection. Urine culture: ecoli with ESBL resistance - Chest XR: Mild CHF, repeat CXR showing CHF - CT abdomen/pelvis: Bilateral pyelitis WBC WNL. Blood pressures remaining stable and now slightly elevated, consider discontinuing the midodrine in the am after lasix treatment. See treatment place below. (2) Acute hypoxic respiratory failure: Code(s): J96.01 - Acute respiratory failure with hypoxia Status: Acute Assessment and Plan: - Symptoms: worsening shortness of breath that is further exacerbated with ambulation - Oxygen supplementation: weaned back to room air - Suspected cause: COPD vs CHF vs PE vs other - Increased risk of PE given cancer history on hormone therapy, age, symptoms, recent hysterectomy on 01/07. Wells criteria 5.5 and Perc rule 4 Started on therapeutic Lovenox 66 mg/kg daily (renal dosing) on 02/19, VQ scan showed low suspicion thus Lovenox dc - On admission there was concern for COPD exacerbation as patient does have audible wheezing. Started on scheduled nebulizer treatments with DuoNeb q.4 hours, changed to prn. Transitioned to oral prednisone on 02/21. - Chest XR showing mild CHF, repeat CXR showing CHF BNP 5500 Echo obtained and showed LVEF 60-65% with grade I diastolic dysfunction and no valvular abnormalities Given lasix 20 mg IV x1 on 02/21 - ABG showed well compensated hypocapnia likely related to patients tachypnea. Patient weaned back to room air with stable saturations. Lungs are clear and she is speaking full sentences stating SOB has significantly improved. Remains on prednisone to complete the course. CT abdomen/pelvis 02/22 showed development of bilateral pleural effusions with subsegmental atelectatic changes; air bronchograms are present and developing consolidation or infiltrate could also be present. Likely atelectatic changes from effusions Will give lasix 40 mg IV x1 (3) Acute pyelonephritis: Code(s): N10 - Acute pyelonephritis Status: Acute Assessment and Plan: Patient has acute pyelonephritis and meets criteria for severe sepsis. Patient reports persistent urinary frequency despite pelvic suspension procedure December. Will obtain postvoid residual to rule out component of incomplete bladder emptying. UA concerning for infection. Urine culture: ecoli with ESBL resistance Antibiotics: Rocephin started on 02/18, broadened to cefepime on 02/19. Transitioned to meropenem on 02/22 (pharmacy to renally dose), consider transitioning to bactrim per sensitivities when blood cultures finalize. Will monitor strict I&O's and daily weights. Will avoid nephrotoxic medications. Patient was endorsing increased abdominal/flank pain with noted distension. You continue to tolerated diet denies any associated nausea/vomiting. Urine output remained stable. A repeat CT abdomen pelvis was obtained and showed no gross interval change in the appearance of the left kidney consistent with ascending UTI pyelonephritis, several nonobstructing right kidney stones but otherwise normal appearing right kidney. Will continue the antibiotics as stated above. (4) Dizziness: Code(s): R42 - Dizziness and giddiness Status: Acute Assessment and Plan: Patient now endorsing increased dizziness. Orthostatics negative. Patient noted to have fluctuating HR, placed on tele to rule out arrhythmia Continue to monitor (5) Acute kidney injury: Code(s): N17.9 - Acute kidney failure, unspecified Status: Acute Assessment and Plan: BUN/Cr 30/1.54 with GFR 33 on admission Likely related to ongoing sepsis hypotension causing decreased perfusion vs hypovolemia vs pyelonephritis BUN/Cr improving on am labs after receiving fluids Will obtain postvoid residual to rule out component of incomplete bladder emptying. Avoid nephrotoxic medications Monitor I/O Renal function stable. UOP WNL. (6) Acute hyponatremia: Code(s): E87.1 - Hypo-osmolality and hyponatremia Status: Acute Assessment and Plan: The patient does have acute hyponatremia likely due to to hypovolemia on admission Hyponatremia has improved with IV fluid hydration, continue to monitor Resolved. Time Spent With Patient Time with patient: 25 - 35 minutes Subjective Date/time seen: 02/22/25 08:22 Interval history: 70-year-old female with a past medical history of obesity, COPD with recent tobacco cessation, left breast cancer, and recent hysterectomy and bladder sling who presented to the ER with left lower abdominal pain and cough. Patient is pleasant sitting up comfortably in bed with family at bedside. She states that her shortness of breath has much improved and continues to be able to speak in full sentences. She is endorsing increased abdominal pain to the bilateral flanks compared yesterday and states that she is now having bloating and distension. She has no other complaints denying chest pain, palpitations, nausea/vomiting. Review of Systems Review of Systems: All systems reviewed & are unremarkable except as noted in HPI and below Exam Narrative: AF HR 88 RR 20 SPO2 96 BP 134/72 General: female in no acute respiratory distress who is nontoxic appearing, sitting up in bed. HEENT: Normocephalic. Atraumatic. Extraocular movement intact. Sclera clear and anicteric. No facial asymmetry. Chest: Lungs clear, no noted wheezing. Speaking full sentences. CV: Heart was regular rate and rhythm. Abd: Abdomen was soft. Mild abdominal pain to the bilateral flanks with noted distension. No guarding. No wave sign. Positive bowel sounds. Ext: No clubbing, cyanosis, or edema. DP pulses bilaterally. Neuro: Patient is alert. Speech is clear. Objective Data Vital Signs Vital Signs: Vital Signs - 24 hr 02/21/25 08:33 02/21/25 08:40 02/21/25 08:46 Temperature Pulse Rate 97 102 H Respiratory Rate 18 20 Blood Pressure Pulse Oximetry 97 Oxygen Delivery Room Air 02/21/25 13:40 02/21/25 16:00 02/21/25 20:30 Temperature 97.0 F L Pulse Rate 93 105 H Respiratory Rate 18 17 Blood Pressure 113/56 L Pulse Oximetry 97 Oxygen Delivery Room Air 02/21/25 20:49 02/21/25 21:16 02/21/25 21:16 Temperature 97.6 F Pulse Rate 90 91 Respiratory Rate 20 18 Blood Pressure 121/75 Pulse Oximetry 98 96 Oxygen Delivery Room Air 02/21/25 21:21 02/22/25 02:00 02/22/25 02:10 Temperature Pulse Rate 92 99 95 Respiratory Rate 18 20 20 Blood Pressure Pulse Oximetry Oxygen Delivery 02/22/25 05:36 Temperature 97.9 F Pulse Rate 101 H Respiratory Rate 20 Blood Pressure 102/54 L Pulse Oximetry 96 Oxygen Delivery Intake/Output Intake/Output: Intake & Output 02/19/25 02/20/25 02/21/25 02/22/25 23:59 23:59 23:59 23:59 Intake Total 3225 2070 2298 425 Output Total 1450 1400 400 Balance 1775 2070 898 25 Meds/Results Medications: Active Medications Generic Name Dose Route Start Last Admin Trade Name Freq PRN Reason Stop Dose Admin Acetaminophen 500 mg 02/19/25 10:52 02/22/25 01:56 Acetaminophen 500 Mg Tablet PO 500 mg Q6H PRN Administration Mild Pain (1-3) or Fever Albuterol 2 puff 02/20/25 14:10 02/21/25 17:47 Albuterol Sulfate (*Sp) Aerosol 1 Puff INHALATION 2 puff Q4-6H PRN Administration Shortness Of Breath Or Wheezing Albuterol/Ipratropium 3 ml 02/19/25 08:00 02/22/25 02:00 Ipratropium 0.5 Mg/Albuterol Sulfate 2.5 Mg (Base) Ampul.Neb 3 Ml INHALATION 3 ml Q6HRT LISSETTE Administration Calcium Carbonate 500 mg 02/19/25 09:00 02/21/25 09:10 Calcium/Vitamin D 500 Mg/5 Mcg (200 I.U.) Tablet PO 500 mg QAM LISSETTE Administration Docusate Sodium 100 mg 02/19/25 09:00 02/21/25 16:58 Docusate Sodium 100 Mg Capsule PO 100 mg BID LISSETTE Administration Enoxaparin Sodium 40 mg 02/19/25 09:00 02/21/25 09:10 Enoxaparin 40 Mg/0.4 Ml Syringe SUB-Q 40 mg DAILY LISSETTE Administration Hydroxyzine HCl 10 mg 02/20/25 14:20 Hydroxyzine Hcl 10 Mg Tablet PO Q6H PRN Anxiety Sodium Chloride 1,000 mls @ 125 mls/hr 02/19/25 14:50 02/20/25 08:28 Normal Saline Iv IV CONT 125 mls/hr On Hold: 02/20/25 11:32 .Q8H LISSETTE Administration Comment: holding until latic acid results Cefepime HCl 1 gm/ Sodium 50 mls @ 100 mls/hr 02/20/25 15:00 02/22/25 02:59 Chloride IVPB 100 mls/hr Q12H LISSETTE Administration Lidocaine 1 patch 02/22/25 09:00 02/22/25 06:23 Lidocaine 5% Patch TRANSDERM 1 patch DAILY LISSETTE Administration Midodrine 10 mg 02/19/25 17:00 02/21/25 16:58 Midodrine Hcl 10 Mg Tablet PO 10 mg TID LISSETTE Administration Miscellaneous Information 0 each 02/22/25 06:20 Lidocaine Patch- Please Clarify Application Site XX 03/24/25 06:19 CLARIFY [facility] Perflutren Lipid Microsphere 0 ml 02/19/25 14:59 Perflutren Lipid Microspheres 1.5 Ml Vial Diluted To 10 Ml Total Volume IV PUSH 02/22/25 14:59 ONCE PRN adequate visualization Protocol Prednisone 40 mg 02/22/25 08:00 Prednisone 20 Mg Tablet PO 02/26/25 08:01 DAILY@0800 [facility] Tamoxifen Citrate 20 mg 02/19/25 09:00 02/21/25 09:11 Tamoxifen Citrate (*Chemo) 10 Mg Tablet PO 20 mg DAILY LISSETTE Administration Radiology Results: ITS Impressions Abdomen/Pelvis CT 02/19/25 06:50 IMPRESSION: 1. Bilateral pyelitis. Pulmonary Perfusion Imaging 02/19/25 15:24 IMPRESSION: Low suspicion VQ scan; findings consistent with low probability of pulmonary embolus. Chest X-Ray 02/20/25 14:28 Impression: CHF Labs Labs: Laboratory Results - last 24 hr 02/22/25 05:19 WBC 8.2 RBC 3.29 L Hgb 10.1 L Hct 31.0 L MCV 94.2 MCH 30.7 MCHC 32.6 RDW 14.6 H Plt Count 149 L MPV 9.5 Sodium 135 L Potassium 3.5 Chloride 110 H Carbon Dioxide 16 L Anion Gap 9 BUN 35 H Creatinine 1.24 H Estim Creat Clear Calc Not Reportable Estimated GFR 43 L Glucose 199 H Calcium 10.5 H Total Bilirubin 0.4 AST 29 ALT 38 H Alkaline Phosphatase 111 Total Protein 6.4 Albumin 3.1 L Quality VTE Prophylaxis VTE prophylaxis: pharmacologic ordered
[2025-02-22] MEDS: MIDODRINE HCL 10 MG TABLET PO ×3 (08:46→16:36)
[2025-02-22] MEDS: TAMOXIFEN CITRATE (*CHEMO) 10 MG TABLET 20 MG PO (08:46)
[2025-02-22] MEDS: CALCIUM/VITAMIN D 500 MG/5 MCG (200 I.U.) TABLET PO (08:46)
[2025-02-22] MEDS: DOCUSATE SODIUM 100 MG CAPSULE PO ×2 (08:46→16:36)
[2025-02-22] MEDS: ENOXAPARIN 40 MG/0.4 ML SYRINGE SUB-Q (08:47)
[2025-02-22] MEDS: MEROPENEM 2 GM in SODIUM CHLORIDE 0.9% IV 100 ML IVPB ×2 (10:26→20:35)
[2025-02-22] MEDS: FUROSEMIDE INJ 40 MG/4 ML VIAL IV PUSH (16:36)
[2025-02-22] MEDS: SODIUM CHLORIDE 0.9% IV 100 ML (20:35)
[2025-02-23] VITALS (13 sets, daily range): BP systolic 107–147; BP diastolic 60–72; PULSE 72–108; RESP 16–24; TEMP 36.4–37.1; O2SAT 94–98
[2025-02-23] MEDS: ACETAMINOPHEN 500 MG TABLET PO ×4 (03:15→21:29)
[2025-02-23 06:03] LABS: Hematocrit 29.6 % (37.0-47.0); Hemoglobin 9.8 g/dL (12.0-15.0); Mean Corpuscular HGB Conc 33.1 g/dl (32-36); Mean Corpuscular Hemoglobin 30.8 pg (26-34); Mean Corpuscular Volume 93.1 fl (80-100); Platelet Count Result 150 k/mm3 (150-375); Red Blood Count 3.18 M/mm3 (4.2-5.4); White Blood Count 6.9 K/mm3 (4.5-10.0)
[2025-02-23 06:33] LABS: Alanine Aminotransferase 36 U/L (6-35); Albumin Level 2.9 g/dL (3.5-5.1); Alkaline Phosphatase 93 U/L (38-126); Anion Gap 3 mmol/L (4-12); Aspartate Amino Transferase 22 U/L (14-36); Bilirubin,Total 0.5 mg/dL (0.2-1.3); Blood Urea Nitrogen 30 mg/dL (7-17); Calcium 10.7 mg/dL (8.4-10.2); Carbon Dioxide 23 mmol/L (22-30); Chloride 107 mmol/L (98-107); Estimated Glomerular Filt Rate 44; Glucose 162 mg/dL (65-110); Potassium 3.8 mmol/L (3.4-5.0); Sodium 133 mmol/L (137-145); Total Protein 6.1 g/dL (6.3-8.2)
[2025-02-23] MEDS: LIDOCAINE 5% PATCH 1 PATCH TRANSDERM (08:22)
[2025-02-23] MEDS: TAMOXIFEN CITRATE (*CHEMO) 10 MG TABLET 20 MG PO (08:24)
[2025-02-23] MEDS: MIDODRINE HCL 10 MG TABLET PO ×2 (08:24→13:16)
[2025-02-23] MEDS: CALCIUM/VITAMIN D 500 MG/5 MCG (200 I.U.) TABLET PO (08:24)
[2025-02-23] MEDS: ENOXAPARIN 40 MG/0.4 ML SYRINGE SUB-Q (08:24)
[2025-02-23] MEDS: DOCUSATE SODIUM 100 MG CAPSULE PO ×2 (08:24→16:53)
[2025-02-23] MEDS: MEROPENEM 2 GM in SODIUM CHLORIDE 0.9% IV 100 ML IVPB ×2 (08:29→20:28)
--- NOTE | 2025-02-23 13:18 | P.PNIM_ITS ---
Progress Note: A&P Assessment and Plan (1) Severe sepsis: Code(s): A41.9 - Sepsis, unspecified organism; R65.20 - Severe sepsis without septic shock Status: Acute Assessment and Plan: Meets SIRS criteria: persistent lactic acidosis after 30 mL/kilos fluid bolus, leukocytosis, tachycardia and tachypnea - lactic acid: Lactic 3.1 >> 2.3 on am labs, now uptrending on repeat On admission patient appeared intervascular volume depleted and had persistent lactic acidosis and borderline low blood pressures, received sepsis bolus and 1L additional bolus and was placed on 150 ml/hr IV fluids. IV fluids have since been discontinued. - suspected source: pyelonephritis - blood cultures drawn on 02/18: ecoli with sensitive pending - UA concerning for infection. Urine culture: ecoli with ESBL resistance - Chest XR: Mild CHF, repeat CXR showing CHF - CT abdomen/pelvis: Bilateral pyelitis WBC WNL. Blood pressures remaining stable and now slightly elevated, consider discontinuing the midodrine in the am after lasix treatment. See treatment place below. bc sensitivities reviewed- will continue meropenem BP remained stable- will stop midodrine and monitor closely will repeat BC-ordered (2) Acute hypoxic respiratory failure: Code(s): J96.01 - Acute respiratory failure with hypoxia Status: Acute Assessment and Plan: - Symptoms: worsening shortness of breath that is further exacerbated with ambulation - Oxygen supplementation: weaned back to room air - Suspected cause: COPD vs CHF vs PE vs other - Increased risk of PE given cancer history on hormone therapy, age, symptoms, recent hysterectomy on 01/07. Wells criteria 5.5 and Perc rule 4 Started on therapeutic Lovenox 66 mg/kg daily (renal dosing) on 02/19, VQ scan showed low suspicion thus Lovenox dc - On admission there was concern for COPD exacerbation as patient does have audible wheezing. Started on scheduled nebulizer treatments with DuoNeb q.4 hours, changed to prn. Transitioned to oral prednisone on 02/21. - Chest XR showing mild CHF, repeat CXR showing CHF BNP 5500 Echo obtained and showed LVEF 60-65% with grade I diastolic dysfunction and no valvular abnormalities Given lasix 20 mg IV x1 on 02/21 - ABG showed well compensated hypocapnia likely related to patients tachypnea. Patient weaned back to room air with stable saturations. Lungs are clear and she is speaking full sentences stating SOB has significantly improved. Remains on prednisone to complete the course. CT abdomen/pelvis 02/22 showed development of bilateral pleural effusions with subsegmental atelectatic changes; air bronchograms are present and developing consolidation or infiltrate could also be present. Likely atelectatic changes from effusions Will give lasix 40 mg IV x1 sob improved monitor closely continue breathing tx if needed (3) Acute pyelonephritis: Code(s): N10 - Acute pyelonephritis Status: Acute Assessment and Plan: Patient has acute pyelonephritis and meets criteria for severe sepsis. Patient reports persistent urinary frequency despite pelvic suspension procedure December. Will obtain postvoid residual to rule out component of incomplete bladder emptying. UA concerning for infection. Urine culture: ecoli with ESBL resistance Antibiotics: Rocephin started on 02/18, broadened to cefepime on 02/19. Transitioned to meropenem on 02/22 (pharmacy to renally dose), consider transitioning to bactrim per sensitivities when blood cultures finalize. Will monitor strict I&O's and daily weights. Will avoid nephrotoxic medications. Patient was endorsing increased abdominal/flank pain with noted distension. You continue to tolerated diet denies any associated nausea/vomiting. Urine output remained stable. A repeat CT abdomen pelvis was obtained and showed no gross interval change in the appearance of the left kidney consistent with ascending UTI pyelonephritis, several nonobstructing right kidney stones but otherwise normal appearing right kidney. Will continue the antibiotics as stated above. (4) Dizziness: Code(s): R42 - Dizziness and giddiness Status: Acute Assessment and Plan: Patient now endorsing increased dizziness. Orthostatics negative. Patient noted to have fluctuating HR, placed on tele to rule out arrhythmia Continue to monitor (5) Acute kidney injury: Code(s): N17.9 - Acute kidney failure, unspecified Status: Acute Assessment and Plan: BUN/Cr 30/1.54 with GFR 33 on admission Likely related to ongoing sepsis hypotension causing decreased perfusion vs hypovolemia vs pyelonephritis BUN/Cr improving on am labs after receiving fluids Will obtain postvoid residual to rule out component of incomplete bladder emptying. Avoid nephrotoxic medications Monitor I/O Renal function stable. UOP WNL. (6) Acute hyponatremia: Code(s): E87.1 - Hypo-osmolality and hyponatremia Status: Acute Assessment and Plan: The patient does have acute hyponatremia likely due to to hypovolemia on admission Hyponatremia has improved with IV fluid hydration, continue to monitor Resolved. Time Spent With Patient Time with patient: Greater than 35 minutes Subjective Date/time seen: 02/23/25 13:18 Interval history: 70-year-old female with a past medical history of obesity, COPD with recent t obacco cessation, left breast cancer, and recent hysterectomy and bladder sling who presented to the ER with left lower abdominal pain and cough. Patient is seen and examined. Her sob is improved but she feels wheezy after any exertion. She had BM earlier her abd pain and bloating improved. She has no other complaints denying chest pain, palpitations, nausea/vomiting. Review of Systems Review of Systems: 12 systems were reviewed with pertinent positives and negatives per HPI. Except as documented in the HPI, all other systems were reviewed and are negative. All systems reviewed & are unremarkable except as noted in HPI and below Exam 2 Narrative: AF HR 88 RR 20 SPO2 96 BP 134/72 General: female in no acute respiratory distress who is nontoxic appearing, sitting up in bed. HEENT: Normocephalic. Atraumatic. Extraocular movement intact. Sclera clear and anicteric. No facial asymmetry. Chest: Lungs clear, no noted wheezing. Speaking full sentences. CV: Heart was regular rate and rhythm. Abd: Abdomen was soft. Mild abdominal pain to the bilateral flanks with noted distension. No guarding. No wave sign. Positive bowel sounds. Ext: No clubbing, cyanosis, or edema. DP pulses bilaterally. Neuro: Patient is alert. Speech is clear. Const: Other: Acutely ill-appearing, obese HENMT: Other: Mucous membranes are dry, multiple missing teeth with poor dentition, nasal cannula in place Eyes: Other: Pupils are equal and reactive, positive conjunctival pallor, no scleral icterus for, crowded posterior oropharynx Neck: Other: Large neck circumference, no JVD Resp: Other: Diffuse wheezing bilaterally anterior, mild tachypnea, decreased breath sounds posterior lung field Cardio: Other: Sinus tachycardia, 2+ bilateral radial pedal pulses, no murmur GI: Other: Marked tenderness in the left lateral abdomen, hepatomegaly, positive bowel sounds, tense, distended Skin: Other: Generalized pallor, non jaundice Neuro: Other: Alert oriented to person, place and year initially stated that the month was March but correct herself to February, no facial asymmetry, no gross motor deficits noted during the course of conversation Extrem: Other: No clubbing, cyanosis or edema, moves all extremities equally Psych: Other: Flat affect, cooperative, intact judgment and insight Objective Data Vital Signs Vital Signs: Vital Signs - 24 hr 02/22/25 13:44 02/22/25 13:49 02/22/25 13:52 Temperature 97.5 F L Pulse Rate 96 92 97 Respiratory Rate 18 Blood Pressure 114/61 136/68 139/83 Pulse Oximetry 96 97 97 Oxygen Delivery 02/22/25 13:55 02/22/25 14:10 02/22/25 14:10 Temperature Pulse Rate 96 87 87 Respiratory Rate 20 20 Blood Pressure 134/72 Pulse Oximetry 97 96 Oxygen Delivery Room Air 02/22/25 14:19 02/22/25 16:00 02/22/25 20:00 Temperature Pulse Rate 88 85 95 Respiratory Rate 20 14 Blood Pressure Pulse Oximetry 98 Oxygen Delivery Room Air 02/22/25 20:00 02/22/25 21:47 02/23/25 00:00 Temperature 98.2 F Pulse Rate 99 95 95 Respiratory Rate 14 Blood Pressure 117/72 Pulse Oximetry 98 Oxygen Delivery 02/23/25 04:00 02/23/25 06:00 02/23/25 08:00 Temperature 98.8 F Pulse Rate 82 84 108 H Respiratory Rate 16 Blood Pressure 113/70 Pulse Oximetry 94 Oxygen Delivery 02/23/25 08:30 02/23/25 11:09 02/23/25 11:09 Temperature 97.6 F Pulse Rate 84 77 92 Respiratory Rate 16 24 H Blood Pressure 116/68 115/60 Pulse Oximetry 94 95 94 Oxygen Delivery Room Air 02/23/25 11:09 02/23/25 12:00 Temperature Pulse Rate 86 98 Respiratory Rate Blood Pressure 120/66 Pulse Oximetry 96 Oxygen Delivery Intake/Output Intake/Output: Intake & Output 02/20/25 02/21/25 02/22/25 02/23/25 23:59 23:59 23:59 23:59 Intake Total 2069 3786 074 640 Output Total 1400 1300 50 Balance 2069 698 -904 952 Meds/Results Medications: Active Medications Generic Name Dose Route Start Last Admin Trade Name Freq PRN Reason Stop Dose Admin Acetaminophen 500 mg 02/19/25 10:52 02/23/25 09:21 Acetaminophen 500 Mg Tablet PO 500 mg Q6H PRN Administration Mild Pain (1-3) or Fever Albuterol 2 puff 02/20/25 14:10 02/21/25 17:47 Albuterol Sulfate (*Sp) Aerosol 1 Puff INHALATION 2 puff Q4-6H PRN Administration Shortness Of Breath Or Wheezing Albuterol/Ipratropium 3 ml 02/22/25 15:28 Ipratropium 0.5 Mg/Albuterol Sulfate 2.5 Mg (Base) Ampul.Neb 3 Ml INHALATION Q6HRT PRN Shortness Of Breath Or Wheezing Calcium Carbonate 500 mg 02/19/25 09:00 02/23/25 08:24 Calcium/Vitamin D 500 Mg/5 Mcg (200 I.U.) Tablet PO 500 mg QAM LISSETTE Administration Docusate Sodium 100 mg 02/19/25 09:00 02/23/25 08:24 Docusate Sodium 100 Mg Capsule PO 100 mg BID LISSETTE Administration Enoxaparin Sodium 40 mg 02/19/25 09:00 02/23/25 08:24 Enoxaparin 40 Mg/0.4 Ml Syringe SUB-Q 40 mg DAILY LISSETTE Administration Hydroxyzine HCl 10 mg 02/20/25 14:20 02/22/25 09:01 Hydroxyzine Hcl 10 Mg Tablet PO 10 mg Q6H PRN Administration Anxiety Sodium Chloride 1,000 mls @ 125 mls/hr 02/19/25 14:50 02/20/25 08:28 Normal Saline Iv IV CONT 125 mls/hr On Hold: 02/20/25 11:32 .Q8H LISSETTE Administration Comment: holding until latic acid results Meropenem 2 gm/ Sodium 100 mls @ 200 mls/hr 02/22/25 09:00 02/23/25 08:29 Chloride IVPB 200 mls/hr Q12HR LISSETTE Administration Lidocaine 1 patch 02/22/25 09:00 02/23/25 08:22 Lidocaine 5% Patch TRANSDERM 1 patch DAILY LISSETTE Administration Midodrine 10 mg 02/19/25 17:00 02/23/25 13:16 Midodrine Hcl 10 Mg Tablet PO 10 mg TID LISSETTE Administration Polyethylene Glycol 17 gm 02/22/25 09:00 02/23/25 08:24 Polyethylene Glycol 3350 17 Gm Powd.Pack PO 17 gm QAM LISSETTE Administration Prednisone 40 mg 02/22/25 08:00 02/23/25 08:24 Prednisone 20 Mg Tablet PO 02/26/25 08:01 40 mg DAILY@0800 LISSETTE Administration Tamoxifen Citrate 20 mg 02/19/25 09:00 02/23/25 08:24 Tamoxifen Citrate (*Chemo) 10 Mg Tablet PO 20 mg DAILY LISSETTE Administration Radiology Results: ITS Impressions Pulmonary Perfusion Imaging 02/19/25 15:24 IMPRESSION: Low suspicion VQ scan; findings consistent with low probability of pulmonary embolus. Chest X-Ray 02/20/25 14:28 Impression: CHF Abdomen/Pelvis CT 02/22/25 13:36 IMPRESSION: 1. No gross interval change in the appearance of the left kidney consistent with ascending UTI and pyelonephritis. 2. Several nonobstructing right-sided kidney stones but otherwise normal- appearing right kidney. 3. Development of bilateral pleural effusions with subsegmental atelectatic changes; air bronchograms are present and developing consolidation or infiltrate could also be present. 4. Small pericardial effusion. Labs Labs: Laboratory Results - last 24 hr 02/23/25 05:51 WBC 6.9 RBC 3.18 L Hgb 9.8 L Hct 29.6 L MCV 93.1 MCH 30.8 MCHC 33.1 RDW 14.4 Plt Count 150 MPV 9.3 Sodium 133 L Potassium 3.8 Chloride 107 Carbon Dioxide 23 Anion Gap 3 L BUN 30 H Creatinine 1.21 H Estim Creat Clear Calc Not Reportable Estimated GFR 44 L Glucose 162 H Calcium 10.7 H Total Bilirubin 0.5 AST 22 ALT 36 H Alkaline Phosphatase 93 Total Protein 6.1 L Albumin 2.9 L Quality VTE Prophylaxis VTE prophylaxis: pharmacologic ordered
[2025-02-23] MEDS: IPRATROPIUM 0.5 MG/ALBUTEROL SULFATE 2.5 MG (BASE) AMPUL.NEB 3 ML INHALATION (15:08)
[2025-02-24] VITALS (11 sets, daily range): BP systolic 105–116; BP diastolic 59–72; PULSE 68–102; RESP 15–20; TEMP 36.6–36.8; O2SAT 96–99
[2025-02-24] MEDS: ACETAMINOPHEN 500 MG TABLET PO ×3 (04:04→20:40)
[2025-02-24 06:39] LABS: Hematocrit 29.8 % (37.0-47.0); Hemoglobin 9.7 g/dL (12.0-15.0); Mean Corpuscular HGB Conc 32.6 g/dl (32-36); Mean Corpuscular Hemoglobin 30.7 pg (26-34); Mean Corpuscular Volume 94.3 fl (80-100); Platelet Count Result 174 k/mm3 (150-375); Red Blood Count 3.16 M/mm3 (4.2-5.4); White Blood Count 9.3 K/mm3 (4.5-10.0)
[2025-02-24 07:04] LABS: Alanine Aminotransferase 32 U/L (6-35); Albumin Level 2.8 g/dL (3.5-5.1); Alkaline Phosphatase 95 U/L (38-126); Anion Gap 3 mmol/L (4-12); Aspartate Amino Transferase 19 U/L (14-36); Bilirubin,Total 0.4 mg/dL (0.2-1.3); Blood Urea Nitrogen 29 mg/dL (7-17); Calcium 10.5 mg/dL (8.4-10.2); Carbon Dioxide 23 mmol/L (22-30); Chloride 105 mmol/L (98-107); Estimated Glomerular Filt Rate 50; Glucose 168 mg/dL (65-110); Potassium 3.4 mmol/L (3.4-5.0); Sodium 131 mmol/L (137-145); Total Protein 5.8 g/dL (6.3-8.2)
[2025-02-24] MEDS: CALCIUM/VITAMIN D 500 MG/5 MCG (200 I.U.) TABLET PO (08:23)
[2025-02-24] MEDS: DOCUSATE SODIUM 100 MG CAPSULE PO (08:23)
[2025-02-24] MEDS: LIDOCAINE 5% PATCH 1 PATCH TRANSDERM (08:23)
[2025-02-24] MEDS: TAMOXIFEN CITRATE (*CHEMO) 10 MG TABLET 20 MG PO (08:23)
[2025-02-24] MEDS: ENOXAPARIN 40 MG/0.4 ML SYRINGE SUB-Q (08:24)
[2025-02-24] MEDS: MEROPENEM 2 GM in SODIUM CHLORIDE 0.9% IV 100 ML IVPB ×2 (08:24→20:40)
[2025-02-24] MEDS: IPRATROPIUM 0.5 MG/ALBUTEROL SULFATE 2.5 MG (BASE) AMPUL.NEB 3 ML INHALATION (08:45)
--- NOTE | 2025-02-24 08:54 | P.PNIM_ITS ---
Progress Note: A&P Assessment and Plan (1) Severe sepsis: Code(s): A41.9 - Sepsis, unspecified organism; R65.20 - Severe sepsis without septic shock Status: Acute Assessment and Plan: Meets SIRS criteria: persistent lactic acidosis after 30 mL/kilos fluid bolus, leukocytosis, tachycardia and tachypnea - lactic acid: Lactic 3.1 >> 2.3 on am labs, now uptrending on repeat On admission patient appeared intervascular volume depleted and had persistent lactic acidosis and borderline low blood pressures, received sepsis bolus and 1L additional bolus and was placed on 150 ml/hr IV fluids. IV fluids have since been discontinued. - suspected source: pyelonephritis - blood cultures drawn on 02/18: ecoli that is only sensitive to ertapenem, meropenem, and Bactrim - UA concerning for infection. Urine culture: ecoli with ESBL resistance - Chest XR: Mild CHF, repeat CXR showing CHF - CT abdomen/pelvis: Bilateral pyelitis Resolved. WBC WNL and vitals stable. Plan to transition to oral antibiotic in th e am. (2) Acute hypoxic respiratory failure: Code(s): J96.01 - Acute respiratory failure with hypoxia Status: Acute Assessment and Plan: - Symptoms: worsening shortness of breath that is further exacerbated with ambulation - Oxygen supplementation: weaned back to room air - Suspected cause: COPD vs CHF vs PE vs other - Increased risk of PE given cancer history on hormone therapy, age, symptoms, recent hysterectomy on 01/07. Wells criteria 5.5 and Perc rule 4 Started on therapeutic Lovenox 66 mg/kg daily (renal dosing) on 02/19, VQ scan showed low suspicion thus Lovenox dc - On admission there was concern for COPD exacerbation as patient does have audible wheezing. Started on scheduled nebulizer treatments with DuoNeb q.4 hours, changed to prn. Transitioned to oral prednisone on 02/21. - Chest XR showing mild CHF, repeat CXR showing CHF BNP 5500 Echo obtained and showed LVEF 60-65% with grade I diastolic dysfunction and no valvular abnormalities Given lasix 20 mg IV x1 on 02/21 - ABG showed well compensated hypocapnia likely related to patients tachypnea. CT abdomen/pelvis 02/22 showed development of bilateral pleural effusions with subsegmental atelectatic changes; air bronchograms are present and developing consolidation or infiltrate could also be present. Likely atelectatic changes from effusions Given lasix 40 mg IV x1 on 02/22 Resolved. Remains on room air with stable saturations. (3) Acute pyelonephritis: Code(s): N10 - Acute pyelonephritis Status: Acute Assessment and Plan: Patient has acute pyelonephritis and meets criteria for severe sepsis. Patient reports persistent urinary frequency despite pelvic suspension procedure December. Will obtain postvoid residual to rule out component of incomplete bladder emptying. UA concerning for infection. Urine culture: ecoli with ESBL resistance Antibiotics: Rocephin started on 02/18, broadened to cefepime on 02/19. Transitioned to meropenem on 02/22 (pharmacy to renally dose), consider transitioning to bactrim per sensitivities when blood cultures finalize. Will monitor strict I&O's and daily weights. Will avoid nephrotoxic medications. Repeat CT abdomen pelvis was obtained on 02/22 and showed no gross interval change in the appearance of the left kidney consistent with ascending UTI pyelonephritis, several nonobstructing right kidney stones but otherwise normal appearing right kidney. Will continue the antibiotics as stated above. No complaints. Continue abx as above and plan to transition to oral in the am. (4) Dizziness: Code(s): R42 - Dizziness and giddiness Status: Acute Assessment and Plan: Patient now endorsing increased dizziness. Orthostatics negative. Patient noted to have fluctuating HR, placed on tele to rule out arrhythmia Continue to monitor Resolved. (5) Acute kidney injury: Code(s): N17.9 - Acute kidney failure, unspecified Status: Acute Assessment and Plan: BUN/Cr 30/1.54 with GFR 33 on admission Likely related to ongoing sepsis hypotension causing decreased perfusion vs hypovolemia vs pyelonephritis BUN/Cr improving on am labs after receiving fluids Will obtain postvoid residual to rule out component of incomplete bladder e mptying. Avoid nephrotoxic medications Monitor I/O Renal function stable. UOP WNL. (6) Acute hyponatremia: Code(s): E87.1 - Hypo-osmolality and hyponatremia Status: Acute Assessment and Plan: The patient does have acute hyponatremia likely due to to hypovolemia on admission Hyponatremia has improved with IV fluid hydration, continue to monitor Resolved. Time Spent With Patient Time with patient: Greater than 35 minutes Subjective Date/time seen: 02/24/25 08:54 Interval history: 70-year-old female with a past medical history of obesity, COPD with recent tobacco cessation, left breast cancer, and recent hysterectomy and bladder sling who presented to the ER with left lower abdominal pain and cough. Patient is pleasant sitting up on side of bed. She states she became short of breath earlier this am requiring a breathing treatment. She denies any shortness of breath at time of assessment or cough. She states that the dizziness has completely resolved. She has no other complaints denying chest pain, palpitations, nausea/vomiting and abdominal pain. Review of Systems Review of Systems: All systems reviewed & are unremarkable except as noted in HPI and below Exam Narrative: AF HR 82 RR 20 SPO2 96 BP 116/68 General: female in no acute respiratory distress who is nontoxic appearing, sitt ing up in bed. HEENT: Normocephalic. Atraumatic. Extraocular movement intact. Sclera clear and anicteric. No facial asymmetry. Chest: Lungs clear, no noted wheezing. Speaking full sentences. CV: Heart was regular rate and rhythm. Abd: Abdomen was soft. Nontender. No guarding. No wave sign. Positive bowel sounds. Ext: No clubbing, cyanosis, or edema. DP pulses bilaterally. Neuro: Patient is alert. Speech is clear. Const: Other: Acutely ill-appearing, obese HENMT: Other: Mucous membranes are dry, multiple missing teeth with poor dentition, nasal cannula in place Eyes: Other: Pupils are equal and reactive, positive conjunctival pallor, no scleral icterus for, crowded posterior oropharynx Neck: Other: Large neck circumference, no JVD Resp: Other: Diffuse wheezing bilaterally anterior, mild tachypnea, decreased breath sounds posterior lung field Cardio: Other: Sinus tachycardia, 2+ bilateral radial pedal pulses, no murmur GI: Other: Marked tenderness in the left lateral abdomen, hepatomegaly, positive bowel sounds, tense, distended Skin: Other: Generalized pallor, non jaundice Neuro: Other: Alert oriented to person, place and year initially stated that the month was March but correct herself to February, no facial asymmetry, no gross motor deficits noted during the course of conversation Extrem: Other: No clubbing, cyanosis or edema, moves all extremities equally Psych: Other: Flat affect, cooperative, intact judgment and insight Objective Data Vital Signs Vital Signs: Vital Signs - 24 hr 02/23/25 11:09 02/23/25 11:09 02/23/25 11:09 Temperature 97.6 F Pulse Rate 77 92 86 Respiratory Rate 24 H Blood Pressure 116/68 115/60 120/66 Pulse Oximetry 95 94 96 Oxygen Delivery 02/23/25 12:00 02/23/25 14:00 02/23/25 15:08 Temperature 98.4 F Pulse Rate 98 73 88 Respiratory Rate 20 17 Blood Pressure 147/72 H Pulse Oximetry 97 Oxygen Delivery 02/23/25 15:13 02/23/25 16:00 02/23/25 20:00 Temperature Pulse Rate 80 72 Respiratory Rate 17 Blood Pressure Pulse Oximetry Oxygen Delivery Room Air 02/23/25 20:00 02/23/25 21:22 02/24/25 00:00 Temperature 98.1 F Pulse Rate 82 90 68 Respiratory Rate 17 Blood Pressure 107/70 Pulse Oximetry 98 Oxygen Delivery 02/24/25 04:00 02/24/25 05:53 02/24/25 08:40 Temperature 97.9 F Pulse Rate 92 77 85 Respiratory Rate 19 20 Blood Pressure 116/68 Pulse Oximetry 96 Oxygen Delivery 02/24/25 08:46 Temperature Pulse Rate 82 Respiratory Rate 20 Blood Pressure Pulse Oximetry Oxygen Delivery Intake/Output Intake/Output: Intake & Output 02/21/25 02/22/25 02/23/25 02/24/25 23:59 23:59 23:59 23:59 Intake Total 2298 625 1140 600 Output Total 1400 1300 350 500 Balance 898 -675 790 100 Meds/Results Medications: Active Medications Generic Name Dose Route Start Last Admin Trade Name Freq PRN Reason Stop Dose Admin Acetaminophen 500 mg 02/19/25 10:52 02/24/25 04:04 Acetaminophen 500 Mg Tablet PO 500 mg Q6H PRN Administration Mild Pain (1-3) or Fever Albuterol 2 puff 02/20/25 14:10 02/21/25 17:47 Albuterol Sulfate (*Sp) Aerosol 1 Puff INHALATION 2 puff Q4-6H PRN Administration Shortness Of Breath Or Wheezing Albuterol/Ipratropium 3 ml 02/22/25 15:28 02/24/25 08:45 Ipratropium 0.5 Mg/Albuterol Sulfate 2.5 Mg (Base) Ampul.Neb 3 Ml INHALATION 3 ml Q6HRT PRN Administration Shortness Of Breath Or Wheezing Calcium Carbonate 500 mg 02/19/25 09:00 02/24/25 08:23 Calcium/Vitamin D 500 Mg/5 Mcg (200 I.U.) Tablet PO 500 mg QAM LISSETTE Administration Docusate Sodium 100 mg 02/19/25 09:00 02/24/25 08:23 Docusate Sodium 100 Mg Capsule PO 100 mg BID LISSETTE Administration Enoxaparin Sodium 40 mg 02/19/25 09:00 02/24/25 08:24 Enoxaparin 40 Mg/0.4 Ml Syringe SUB-Q 40 mg DAILY LISSETTE Administration Hydroxyzine HCl 10 mg 02/20/25 14:20 02/22/25 09:01 Hydroxyzine Hcl 10 Mg Tablet PO 10 mg Q6H PRN Administration Anxiety Sodium Chloride 1,000 mls @ 125 mls/hr 02/19/25 14:50 02/20/25 08:28 Normal Saline Iv IV CONT 125 mls/hr On Hold: 02/20/25 11:32 .Q8H LISSETET Administration Comment: holding until latic acid results Meropenem 2 gm/ Sodium 100 mls @ 200 mls/hr 02/22/25 09:00 02/24/25 08:24 Chloride IVPB 200 mls/hr Q12HR LISSETTE Administration Lidocaine 1 patch 02/22/25 09:00 02/24/25 08:23 Lidocaine 5% Patch TRANSDERM 1 patch DAILY LISSETTE Administration Polyethylene Glycol 17 gm 02/22/25 09:00 02/23/25 08:24 Polyethylene Glycol 3350 17 Gm Powd.Pack PO 17 gm QAM LISSETTE Administration Prednisone 40 mg 02/22/25 08:00 02/24/25 08:24 Prednisone 20 Mg Tablet PO 02/26/25 08:01 40 mg DAILY@0800 LISSETTE Administration Tamoxifen Citrate 20 mg 02/19/25 09:00 02/24/25 08:23 Tamoxifen Citrate (*Chemo) 10 Mg Tablet PO 20 mg DAILY LISSETTE Administration Radiology Results: ITS Impressions Pulmonary Perfusion Imaging 02/19/25 15:24 IMPRESSION: Low suspicion VQ scan; findings consistent with low probability of pulmonary embolus. Chest X-Ray 02/20/25 14:28 Impression: CHF Abdomen/Pelvis CT 02/22/25 13:36 IMPRESSION: 1. No gross interval change in the appearance of the left kidney consistent with ascending UTI and pyelonephritis. 2. Several nonobstructing right-sided kidney stones but otherwise normal- appearing right kidney. 3. Development of bilateral pleural effusions with subsegmental atelectatic changes; air bronchograms are present and developing consolidation or infiltrate could also be present. 4. Small pericardial effusion. Labs Labs: Laboratory Results - last 24 hr 02/24/25 06:20 WBC 9.3 RBC 3.16 L Hgb 9.7 L Hct 29.8 L MCV 94.3 MCH 30.7 MCHC 32.6 RDW 13.8 Plt Count 174 MPV 9.6 Sodium 131 L Potassium 3.4 Chloride 105 Carbon Dioxide 23 Anion Gap 3 L BUN 29 H Creatinine 1.09 H Estim Creat Clear Calc Not Reportable Estimated GFR 50 L Glucose 168 H Calcium 10.5 H Total Bilirubin 0.4 AST 19 ALT 32 Alkaline Phosphatase 95 Total Protein 5.8 L Albumin 2.8 L Quality VTE Prophylaxis VTE prophylaxis: pharmacologic ordered
[2025-02-25] VITALS (7 sets, daily range): BP systolic 110–135; BP diastolic 53–77; PULSE 70–80; RESP 19; TEMP 36.9; O2SAT 96
[2025-02-25] MEDS: ACETAMINOPHEN 500 MG TABLET PO ×2 (03:11→08:09)
[2025-02-25] MEDS: MEROPENEM 2 GM in SODIUM CHLORIDE 0.9% IV 100 ML IVPB (08:06)
[2025-02-25] MEDS: TAMOXIFEN CITRATE (*CHEMO) 10 MG TABLET 20 MG PO (08:07)
[2025-02-25] MEDS: DOCUSATE SODIUM 100 MG CAPSULE PO (08:07)
[2025-02-25] MEDS: LIDOCAINE 5% PATCH 1 PATCH TRANSDERM (08:07)
[2025-02-25] MEDS: CALCIUM/VITAMIN D 500 MG/5 MCG (200 I.U.) TABLET PO (08:07)
[2025-02-25] MEDS: ENOXAPARIN 40 MG/0.4 ML SYRINGE SUB-Q (08:07)
--- NOTE | 2025-02-25 09:03 | PCNWS ---
Weekly nutritional screen. Patient is tolerating current regular diet with adequate intake 50-100% of meals. No weight loss reported. No nutritional recommendations at this time.
--- NOTE | 2025-02-25 13:30 | P.DS_ITS ---
DS: Admitting Diagnosis Discharge Date 02/25/2025 Admitting Diagnosis sepsis acute hypoxic respiratory failure acute pyelonephritis dizziness mohan hyponatremia DS: Discharge Diagnosis Discharge Diagnosis (1) Severe sepsis: Code(s): A41.9 - Sepsis, unspecified organism; R65.20 - Severe sepsis without septic shock Status: Acute (2) Acute hypoxic respiratory failure: Code(s): J96.01 - Acute respiratory failure with hypoxia Status: Acute (3) Acute pyelonephritis: Code(s): N10 - Acute pyelonephritis Status: Acute (4) Dizziness: Code(s): R42 - Dizziness and giddiness Status: Acute (5) Acute kidney injury: Code(s): N17.9 - Acute kidney failure, unspecified Status: Acute (6) Acute hyponatremia: Code(s): E87.1 - Hypo-osmolality and hyponatremia Status: Acute DS: Summary Hospital Course Reason for hospitalization: sepsis acute hypoxic respiratory failure acute pyelonephritis dizziness mohan hyponatremia Hospital Course: 70-year-old female with a history of obesity, COPD, left breast cancer (on tamoxifen), recent hysterectomy with bladder sling, and osteoporosis, who presented with left lower abdominal pain and cough. On admission, she was acutely ill-appearing, meeting sepsis criteria with tachycardic, tachypneic with and hypoxia, and laboratory evidence of leukocytosis and lactic acidosis. Received sepsis bolus in the ED and was started on IV fluids on admission. Patient noted to have an acute kidney injury with urinalysis consistent with infection and imaging revealing bilateral pyelitis. She continued to meet criteria for severe sepsis with persistent lactic acidosis after fluid resuscitation, hypotension, and evidence of end-organ dysfunction. Empiric antibiotics were initiated and later escalated to meropenem after blood and urine cultures grew ESBL-producing E. coli. Her acute kidney injury and hyponatremia improved with supportive care. Patient continued to have lactic acidosis despite fluid resuscitation, likely related to hypoxemia due to ongoing SOB with new o2 need vs hypotension causing decreased perfusion. ABG showing well compensated hypocapnia likely related to tachypnea. Patients lactic acid started to downtrend and she continued to clinically improve. During her hospitalization, she developed acute hypoxic respiratory failure with worsening shortness of breath and wheezing, requiring supplemental oxygen, scheduled nebulizer treatments, and steroids. Given her risk factors (malignancy, recent surgery, immobility), she was evaluated for pulmonary embolism; VQ scan was low probability, and anticoagulation was discontinued. Ch est imaging revealed mild CHF and later bilateral pleural effusions with atelectatic changes, for which she received diuretics with improvement. Echocardiogram showed preserved ejection fraction with grade I diastolic dysfunction. Her respiratory status stabilized, and she was weaned to room air. She was transitioned to oral steroids prior to discharge to complete the course and discussed to follow up with her PCP for further evaluation of COPD diagnosis given smoking history. The patient also experienced dizziness and orthostatic symptoms, but orthostatic vitals were negative and telemetry monitoring did not reveal arrhythmia. Her dizziness resolved without intervention. She was transitioned to oral antibiotics as her infection and sepsis resolved, with normalization of WBC and stabilization of vital signs. By discharge, she was afebrile, hemodynamically stable, off supplemental oxygen, and without complaints of abdominal pain, respiratory distress, or dizziness. Her renal function and electrolytes had improved, and she was tolerating oral intake. Patient stated she was back to her baseline and felt ready for discharge. Patient had no complaints at time of discharge denying chest pain, palpitations, shortness of breath, nausea/vomiting and abdominal pain. She was able to ambulate throughout the room and denied any dizziness/lightheadedness. Patient discharged home with family in a stable condition. She is to follow up with her PCP in 1 week. Status at Discharge Functional status at discharge: independent ambulation Time Spent with Patient Time attestation: Total time spent providing and/or coordinating discharge services: Time spent: Greater than 30 minutes Exam Narrative: AF HR 70 RR 19 SPO2 96 BP 120/64 General: female in no acute respiratory distress who is nontoxic appearing, sitting up in bed and ambulating in room HEENT: Normocephalic. Atraumatic. Extraocular movement intact. Sclera clear and anicteric. No facial asymmetry. Chest: Lungs clear, no noted wheezing. Speaking full sentences. CV: Heart was regular rate and rhythm. Abd: Abdomen was soft. Nontender. No guarding. No wave sign. Positive bowel so unds. Ext: No clubbing, cyanosis, or edema. DP pulses bilaterally. Neuro: Patient is alert. Speech is clear. DS: Data Data Completed and Pending Completed studies during hospitalization: abdomen/pelvis ct chest xr VQ scan chest xr abdomen/pelvis ct Discharge Plan Discharge Attending physician on discharge: Jose Bejarano Consulting providers: Laly Pedraza Discharging Clinician: Laly Pedraza Anticipated Discharge Date/Time: 02/25/25 12:12 Patient Disposition: Home Activity: as tolerated Diet: as tolerated Discharge Instructions: Discharge disposition: You are being discharged after treatment for a kidney infection (pyelonephritis) that led to bacteria in your blood (septic bacteremia). You will continue treatment at home with?Bactrim (trimethoprim- sulfamethoxazole), attached is information on this medication. Eat well balanced meals and stay hydrated Keep active to remain strong Avoid use of diapers or pads Good amado Care every 2 hours Trend urine output Concern for COPD exacerbation Continue prednisone, course to be completed on 02/26. Attached is information on this medication ? Watch for warning signs.?If you notice it is harder to breathe, you are coughing more, have more mucus, or your medicine is not helping, call your doctor or go to the emergency room. These could be signs that your COPD is getting worse. Keep moving.?Try to stay active every day, even if it is just walking around your home. Being active helps your lungs and your overall health. Stop smoking.?If you smoke, quitting is the most important thing you can do for your lungs. Follow up with PCP Monitor blood pressures Take caution while standing, rising, or moving Change positions slowly taking a break between each position change If you standing feel dizzy sit back down and take a break Encouraged to continue with yearly vaccinations Return to the emergency department if he developed sudden shortness of breath, chest pain, nausea, vomiting, upset stomach or intractable diarrhea Return to the emergency department if you develop fever greater than 100.5 Follow-up with the primary care physician within 1-2 weeks Thank you for [facility] for your healthcare needs Patient Instructions: Antibiotic Form, Sulfamethoxazole/Trimethoprim (By mouth), Prednisone (By mouth), Urinary Tract Infection in Women (DC), COPD (Chronic Obstructive Pulmonary Disease) (DC), Kidney Infection (DC), Bacteremia (DC) Patient Language: Tajik Stand Alone Forms: General Discharge Information Follow-up/Referrals: Bubba,MD Luana [Primary Care Provider, [facility]] - 1 Week Discharge Medications: New prednisone 20 mg Tablet 40 mg PO DAILY@0800 Qty: 1 0RF sulfamethoxazole-trimethoprim [Bactrim DS] 800-160 mg tablet 1 tablet PO Q12H Qty: 23 0RF Continued tamoxifen 20 mg tablet 20 mg PO DAILY alendronate 70 mg tablet 70 mg PO WEEKLY calcium carbonate-vitamin D2 600 mg calcium- 200 unit tablet 1 tablet PO DAILY albuterol sulfate 90 mcg/actuation HFA aerosol inhaler 2 puff INHALATION Q4-6H PRN (Reason: shortness of breath or wheezing) docusate sodium [Colace] 100 mg capsule 100 mg PO BID Qty: 40 0RF Date of admission: 02/19/25 01:53 Primary Care Provider: BubbaLuana Admitting Provider: Mitra Amaya Attending physician on admission: Mitra Amaya Condition: Stable Hospitalist MIPS Heart Failure (Exclusion) Patient has history of Heart Transplant or Left Ventricular Assistive Device?: No IF YES, STOP HERE Heart Failure (Qualifier) Patient has current or prior documentation of LVEF less than or equal to 40%, or mod/servere depressed LVSF?: No IF NO, STOP HERE
== END 2025-02-25 14:05 | disposition home or self-care (01) | DRG 871 ==
LOC: ANHED 22:23 → ANH3MEDSUR 02-19 02:53
PROVIDERS: Admitting Provider Internal Medicine; Emergency Provider Student in an Organized Health Care Education/Training Program; PCP Family Medicine; Visit Provider Student in an Organized Health Care Education/Training Program
DX: A41.51 Sepsis due to Escherichia coli [E. coli] (principal); J96.01 Acute respiratory failure with hypoxia; N10 Acute pyelonephritis; N17.9 Acute kidney failure, unspecified; E87.1 Hypo-osmolality and hyponatremia; E87.21 Acute metabolic acidosis; E66.9 Obesity, unspecified; E86.1 Hypovolemia; J44.9 Chronic obstructive pulmonary disease, unspecified; D72.829 Elevated white blood cell count, unspecified; F41.9 Anxiety disorder, unspecified; R33.9 Retention of urine, unspecified; M81.0 Age-related osteoporosis without current pathological fracture; Z68.30 Body mass index [BMI] 30.0-30.9, adult; Z90.710 Acquired absence of both cervix and uterus; Z87.891 Personal history of nicotine dependence; Z85.3 Personal history of malignant neoplasm of breast; Z90.722 Acquired absence of ovaries, bilateral
CPT/HCPCS: 36415; 36600; 71045; 74177; 78582; 80053; 81001; 82805; 83605; 83690; 83880; 85018; 85025; 85027; 85055; 87040; 87086; 87186; 93306; 94640; 96361; 96365; 96375; 99291; A9270; A9540; A9558; J0692; J0696; J0744; J1650; J1938; J2185; J2270; J2405; J2919; J7030; J7512; Q9967

== ENCOUNTER 2025-03-25 10:05 | Outpatient (CLI) | payer MEDICARE, SELFPAY ==
--- NOTE | ~2025-03-25 | XR_ITS ---
EXAMINATION: XR chest 2V, 03/25/2025 10:32 CROZER HISTORY: J44.1 - Chronic obstructive pulmonary disease with (acute... COMPARISON: No comparisons available. Technique: 2 views obtained. Findings: The lungs are clear, no effusion. No pneumothorax. Heart is normal size. Mediastinal and hilar contours are within normal limits. Bony thorax no acute abnormality. Impression: No acute cardiopulmonary abnormality. Reviewed, dictated and finalized at location P. ER Impression: No acute cardiopulmonary abnormality.
[2025-03-25 10:37] LABS: Hematocrit 28.8 % (37.0-47.0); Hemoglobin 9.4 g/dL (12.0-15.0); Immature Granulocyte Percent A 0.3 % (0-0.5); Lymphocytes Absolute Auto 2.60 K/mm3 (0.9-3.2); Mean Corpuscular HGB Conc 32.6 g/dl (32-36); Mean Corpuscular Hemoglobin 30.9 pg (26-34); Mean Corpuscular Volume 94.7 fl (80-100); Nucleated Red Blood Cells Absolute Auto 0.000 K/mm3 (0.0-0.012); Nucleated Red Blood Cells Perc 0.0 % (0.0-0.2); Platelet Count Result 208 k/mm3 (150-375); Red Blood Count 3.04 M/mm3 (4.2-5.4); White Blood Count 6.6 K/mm3 (4.5-10.0)
[2025-03-25 10:54] LABS: Alanine Aminotransferase 15 U/L (6-35); Albumin Level 3.5 g/dL (3.5-5.1); Alkaline Phosphatase 120 U/L (38-126); Anion Gap 2 mmol/L (4-12); Aspartate Amino Transferase 22 U/L (14-36); Bilirubin,Total 0.4 mg/dL (0.2-1.3); Blood Urea Nitrogen 14 mg/dL (7-17); Calcium 10.2 mg/dL (8.4-10.2); Carbon Dioxide 26 mmol/L (22-30); Chloride 108 mmol/L (98-107); Estimated Glomerular Filt Rate 47; Glucose 125 mg/dL (65-110); Potassium 3.9 mmol/L (3.4-5.0); Sodium 136 mmol/L (137-145); Total Protein 7.4 g/dL (6.3-8.2)
== END 2025-03-25 10:06 | disposition home or self-care (01) ==
DX: J44.1 Chronic obstructive pulmonary disease with (acute) exacerbation (principal); R53.83 Other fatigue; E78.2 Mixed hyperlipidemia
CPT/HCPCS: 36415; 71046; 80053; 85025